=== PATIENT | male | born 1960 | race Caucasian/White ===

== ENCOUNTER → 2020-04-21 12:48 | Outpatient (BNVA) | payer OTHER, SELFPAY | PROVIDERS: Visit Provider Internal Medicine Cardiovascular Disease | DX: I48.0 Paroxysmal atrial fibrillation (principal); I71.2 Thoracic aortic aneurysm, without rupture; I10 Essential (primary) hypertension | CPT/HCPCS: 93005 ==

== ENCOUNTER 2020-05-05 13:11 | Outpatient (REF) | payer OTHER, SELFPAY ==
[2020-05-05 14:53] LABS: MANUAL DIFF FLAG NO
[2020-05-05 14:56] LABS: Basophils Percent Auto 0.2 % (0-2); Eosinophils Absolute Auto 0.2 X10*3/uL (0.0-0.4); Eosinophils Percent Auto 2.3 % (0-4); Hematocrit 35.9 % (42-52); Imm Gran Abs Auto 0.02 X10*3/uL (0.00-0.03); Imm Gran Pct Auto 0.3 % (0.0-0.4); Lymphocytes Absolute Auto 1.4 X10*3/uL (1.2-4.9); Lymphocytes Percent Auto 21.3 % (20-40); Mean Corpuscular HGB Conc 33.4 g/dl (31.0-36.0); Mean Corpuscular Hemoglobin 29.8 pg (27.0-33.0); Mean Corpuscular Volume 89.1 fL (80-98); Mean Platelet Volume 8.6 fL (9.4-12.4); Monocytes Percent Auto 14.4 % (2-11); Neutrophils Absolute Auto 4.1 X10*3/uL (2.0-8.3); Neutrophils Percent Auto 61.5 % (45-73); Platelet Count 239 X10*3/uL (160-400); Red Blood Count 4.03 X10*6/uL (4.60-5.80); Red Cell Distribution Width 13.3 % (11.0-16.0); White Blood Count 6.6 X10*3/uL (4.8-10.8)
[2020-05-05 15:19] LABS: Gamma Glutamyl Transpeptidase 12 U/L (11-51)
[2020-05-05 15:28] LABS: Alanine Aminotransferase 11 U/L (0-40); Albumin Level 2.6 g/dL (3.5-5.0); Alkaline Phosphatase 105 U/L (39-117); Anion Gap 11 (12-20); Aspartate Amino Transferase 16 U/L (5-37); Bilirubin Total 0.2 mg/dL (0.0-1.0); Blood Urea Nitrogen 13 mg/dL (9-16); Calcium 7.6 mg/dL (8.4-10.2); Carbon Dioxide 25 mmol/L (22-29); Chloride 104 mmol/L (96-108); Estimated Glomerular Filt Rate > 60; Glucose Fasting 92 mg/dL (60-99); Iron 32 mcg/dL (45-160); Percent Iron Saturation 13 % (15-50); Potassium 3.8 mmol/l (3.3-5.1); Sodium 136 mmol/L (135-145); Total Iron Binding Capacity 254 mcg/dL (228-428); Total Protein 5.3 g/dL (6.5-8.0); Unsaturated Iron Binding 222 ug/dL
[2020-05-05 15:40] LABS: Ferritin 20 ng/mL (20-250)
[2020-05-05 15:47] LABS: TSH reflex Free T4 2.28 mIU/mL (0.32-4.0)
[2020-05-05 15:50] LABS: Erythrocyte Sedimentation Rate 38 MM/HR (0-15)
[2020-05-05 16:20] LABS: Prostate Specific Antigen 19.32 ng/mL (<0.05-4.0)
[2020-05-06 10:04] LABS: CDIFF Ag Negative (Negative); CDIFF Internal ctrl Dots and bkg OK (V); CDiff Toxin Negative (Negative)
[2020-05-06 13:06] LABS: Transglutaminase IgA 1 U/mL
[2020-05-06 14:43] LABS: CRP High Sensitivity >10.0 mg/L
[2020-05-13 20:37] LABS: Calprotectin, Fecal 6470 mcg/g
== END 2020-05-05 13:12 | disposition home or self-care (01) ==
LOC: HO.LAB 13:11
PROVIDERS: PCP Internal Medicine; Visit Provider Physician Assistant
DX: K52.9 Noninfective gastroenteritis and colitis, unspecified (principal)
CPT/HCPCS: 36415; 80053; 82728; 82977; 83516; 83540; 83993; 84153; 84443; 85025; 85652; 86141; 87045; 87046; 87324; 87449

== ENCOUNTER → 2020-07-20 09:33 | Outpatient (BNVA) | payer OTHER, SELFPAY | PROVIDERS: PCP Internal Medicine; Visit Provider Physician Assistant ==

== ENCOUNTER → 2020-07-21 09:57 | Outpatient (BNVA) | payer OTHER, SELFPAY | PROVIDERS: PCP Internal Medicine; Visit Provider Internal Medicine Cardiovascular Disease | DX: R94.31 Abnormal electrocardiogram [ECG] [EKG] (principal) | CPT/HCPCS: 93005 ==

== ENCOUNTER → 2020-07-28 08:47 | Outpatient (BNVA) | payer OTHER, SELFPAY | PROVIDERS: PCP Internal Medicine; Visit Provider Nurse Practitioner Family ==

== ENCOUNTER 2020-07-30 11:02 | Day surgery (SDC) | payer OTHER, SELFPAY ==
[2020-07-30 11:16] VITALS: BMI 32.7
[2020-07-30 11:18] VITALS: BP 128/77; PULSE 72; RESP 18; TEMP 36.4; O2SAT 96
--- NOTE | 2020-07-30 11:33 | P.CONAN_ITS ---
[facility] Active Problems Active Problems: All Active Problems (Updated 07/28/20 @ 18:07 by Ally rice, BI DEVELOPER-C) Preop cardiovascular exam (Acute) Prostate cancer (Acute) Thoracic aortic aneurysm (Acute) Paroxysmal atrial fibrillation (Acute) Benign essential hypertension (Acute) Chronic diarrhea (Acute) Colon cancer screening (Acute) Obesity (BMI 30-39.9) (Acute) Bladder outlet obstruction (Acute) Iron deficiency anemia (Acute) Paroxysmal atrial fibrillation (Acute) Pure hypercholesterolemia (Acute) Annual physical exam (Acute) Past Medical History Medical History Benign essential hypertension Bladder outlet obstruction Chronic diarrhea Iron deficiency anemia Obesity (BMI 30-39.9) Paroxysmal atrial fibrillation Paroxysmal atrial fibrillation Preop cardiovascular exam Pure hypercholesterolemia Thoracic aortic aneurysm Family History Family History Father Diabetes Kidney failure, acute Mother Diabetes Sister In good health Surgical History Surgical History History of cystoscopy History of hernia repair Social History Social History Household Members: None Alcohol intake: never Smoking Status: Never smoker Use of substances other than those prescribed or required for medical reasons: No Advance Directives: No Advance Directives Information Provided: Yes Current occupational status: employed Current occupation: [employer] Allergies Allergy/AdvReac Type Severity Reaction Status Date / Time No Known Allergies Allergy Verified 07/20/20 09:34 [No Known Allergies*] Active Medications: Current Medications Generic Name Dose Route Start Last Admin Trade Name Andrews PRN Reason Stop Dose Admin Lactated Ringer's 1,000 mls @ 20 mls/hr 07/29/20 14:15 Lr IVCONT .Q24H CARRIE Home Medications Medication Instructions Recorded Confirmed Last Taken Type dronedarone 400 mg tablet 400 mg PO BID 04/16/20 07/28/20 Unknown History tamsulosin 0.4 mg capsule 0.4 mg PO BEDTIME cap 04/16/20 07/28/20 Unknown History Exam Exam Date and Time: July 30, 2020 1133 Height,Weight and Vital Signs: Height 5 ft 7 in Weight 13.154 kg Last Vital Signs Temp 97.6 F 07/30/20 11:18 Pulse 72 07/30/20 11:18 Resp 18 07/30/20 11:18 BP 128/77 07/30/20 11:18 Pulse Ox 96 07/30/20 11:18 Airway Mallampati Class: II TM Dist: >3cm Neck ROM: Full
[2020-07-30] MEDS: Lactated Ringers 1,000 ML 100 ML IVCONT (11:43)
--- NOTE | 2020-07-30 11:54 | MHC.SHP ---
Pre-Procedural Eval Section A The patient is an INPATIENT: No Changes since office visit: Yes Patient answered all questions; No Cold of Flu in the past 2 weeks, No New Medical Problems and No Changes in Medication The History & Physical has been completed within 30 days and I have reviewed it.: Yes Section B Chief Complaint: colitis Allergies: Allergies Allergy/AdvReac Type Severity Reaction Status Date / Time No Known Allergies Allergy Verified 07/20/20 09:34 [No Known Allergies*] Plan I have reviewed the history and physical and performed a pertinent physical examination on my patient. No changes have occurred unless specified.
[2020-07-30 11:57] VITALS: BMI 32.4
[2020-07-30 12:50] VITALS: BP 98/56; PULSE 68; RESP 14; TEMP 36.4; O2SAT 96
--- NOTE | 2020-07-30 12:52 | PM.OP ---
Brief Operative Note Date of Service: 07/30/20 Pre-op diagnosis: DIARRHEA, COLON CANCER SCREENING, PROSTATE CANCER. Post-op diagnosis: other (ULCERATIVE COLITIS VS. IBD,VS INFECTIOUS-COLON POLYPS.) Procedure: COLONOSCOPY WITH HSP X2, LARGER WITH HEX SNARE, SECOND WITH REG SMALL SNARE, MULTIPLE BX Implants: NONE Surgeon: Charisse Johnson MD Anesthesia: MAC (JUHI TIJERINA,[place]) Estimated blood loss (mL): 10 Pathology: other (ASPIRATE FOR C. DIF, RIGHT COLON BX, TRANS COLON POLYP, DISTAL TRANSVERSE COLON-POLYP, RANDOM LEFT COLON BX.) Condition: stable Disposition: PACU
--- NOTE | 2020-07-30 13:00 | P.BOP_ITS ---
Brief Operative Note Date of Service: 07/30/20 Pre-op diagnosis: DIARRHEA;COLON CANCER SCREENING Post-op diagnosis: other (INFLAMATORY(vs infectious) COLITIS, COLONIC POLYPS; KNOWN PROSTATE CANCER) Procedure: COLONOSCOPY BIOPSIES, HOT SNARE POLPECTOMY X2, STOOL ASPIRATE FOR C. DIF TOXIN Implants: NONE Surgeon: Charisse Johnson MD Anesthesia: MAC (Allyssa TIJERINA;SPRAY MACHINE TENDER) Estimated blood loss (mL): 10 Pathology: other (STOOL ASPIRATE, RIGHT COLON BX, TRANSVERSE COLON POLYP, DISTAL TRANSVERSE COLON POLYP, LEFT COLON BX.) Condition: stable Disposition: PACU
[2020-07-30 13:05] VITALS: BP 134/71; PULSE 62; RESP 17; TEMP 36.4; O2SAT 96
[2020-07-30 13:17] LABS: MANUAL DIFF FLAG NO
[2020-07-30 13:21] LABS: Basophils Percent Auto 0.1 % (0-2); Eosinophils Absolute Auto 0.1 X10*3/uL (0.0-0.4); Eosinophils Percent Auto 0.7 % (0-4); Hematocrit 34.4 % (42-52); Hemoglobin 11.5 g/dl (14.0-18.0); Imm Gran Abs Auto 0.02 X10*3/uL (0.00-0.03); Imm Gran Pct Auto 0.3 % (0.0-0.4); Lymphocytes Absolute Auto 0.9 X10*3/uL (1.2-4.9); Lymphocytes Percent Auto 13.4 % (20-40); Mean Corpuscular HGB Conc 33.4 g/dl (31.0-36.0); Mean Corpuscular Hemoglobin 29.6 pg (27.0-33.0); Mean Corpuscular Volume 88.4 fL (80-98); Monocytes Absolute Auto 0.9 X10*3/uL (0.1-1.2); Monocytes Percent Auto 12.7 % (2-11); Neutrophils Percent Auto 72.8 % (45-73); Platelet Count 185 X10*3/uL (160-400); Red Blood Count 3.89 X10*6/uL (4.60-5.80); Red Cell Distribution Width 14.2 % (11.0-16.0); White Blood Count 6.9 X10*3/uL (4.8-10.8)
--- NOTE | 2020-07-30 13:33 | P.OP_ITS ---
Operative Note Operative Note Date of Service: 07/30/20 Narrative: Pre-op diagnosis: DIARRHEA, COLON CANCER SCREENING, PROSTATE CANCER. Post-op diagnosis: other (ULCERATIVE COLITIS VS. IBD,VS INFECTIOUS-COLON POLYPS.) Procedure: COLONOSCOPY WITH HSP X2, LARGER WITH HEX SNARE, SECOND WITH REG SMALL SNARE, MULTIPLE BX Implants: NONE Surgeon: Charisse Johnson MD Anesthesia: MAC: JUHI TIJERINA CRNA FINDINGS: FELIZ-FIRM NODULE ON PROSTATE (known prostate cancer.) Adult slim colonoscope introduced with out difficult. Immediately, noted was edematous, exudative ulcerative changes from rectum to the cecum. Stool aspirate was taken in the descending colon(Sent for C. Diff studies.) Usual landmarks difficult to see due to the extent of the inflamation. All areas were very friable. I was unable to intubate the terminal ileum due to spasm present when I was in the right colon. Specimens taken as outlined below. The larger polyp was viewed with NBI. It appeared to have some adenomatous texturing. Second polyp was firmer and smaller--both in setting of surrounding inflamation. Left colon bx were obtained. There seemed to be slightly less inflamation in the distal rectum/ Estimated blood loss (mL): 10 Pathology: other (ASPIRATE FOR C. DIF, RIGHT COLON BX, TRANS COLON POLYP, DISTAL TRANSVERSE COLON-POLYP, RANDOM LEFT COLON BX.) Condition: stable Disposition: PACU SUMMARY AND PLAN: LABS FROM 05/05/20: HGB: 12.0--2019 13.4; ALBUMIN: 2.6COMPARED TO 02/08/19- 3.5; CRP>10;FERRITIN-20;C&S DONE @THAT TIME WAS NEG FOR ENTERIC PATHOGENS. STOOL C. DIF WAS ALSO NEG. STOOL CALPROTECTIN 6470 I REVIEWED WITH PATIENT HIS HX OF DIARRHEA. I WAS ABLE TO FIND THE ABOVE RESULTS. I am unclear about any interventions reviewing the [facility] records. I did tell patient of my findings. REPEAT LABS WERE ORDERED TODAY HE WILL NEED FOLLOWUP IN OUR OFFICE. 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
[2020-07-30 13:49] LABS: Alanine Aminotransferase 11 U/L (0-40); Albumin Level 2.4 g/dL (3.5-5.0); Alkaline Phosphatase 114 U/L (39-117); Anion Gap 12 (12-20); Aspartate Amino Transferase 19 U/L (5-37); Bilirubin Total 0.4 mg/dL (0.0-1.0); Blood Urea Nitrogen 8 mg/dL (9-16); C Reactive Protein 0.47 mg/dL (< or = 0.50); Calcium 7.8 mg/dL (8.4-10.2); Carbon Dioxide 22 mmol/L (22-29); Chloride 107 mmol/L (96-108); Creatinine Clr Calc Pharmacy 78.4; Estimated Glomerular Filt Rate > 60; Glucose Random 78 mg/dL (60-115); Magnesium 1.6 mg/dL (1.6-2.6); Potassium 4.3 mmol/L (3.3-5.1); Sodium 137 mmol/L (135-145); Total Protein 4.8 g/dL (6.5-8.0)
[2020-07-30 14:07] LABS: Ferritin 38 ng/mL (20-250); Vitamin D 25-OH Total 5.4 ng/mL (>30)
[2020-07-30 14:57] LABS: CDIFF Ag Negative (Negative); CDIFF Internal ctrl Dots and bkg OK (V); CDiff Toxin Negative (Negative)
== END 2020-07-30 14:05 | disposition home or self-care (01) ==
PROVIDERS: PCP Internal Medicine; Visit Provider Internal Medicine Gastroenterology
PROC: 0DJD8ZZ Inspection of Lower Intestinal Tract, Via Natural or Artificial Opening Endoscopic (ICD-10-PCS; CPT 45378; principal; 2020-07-30 11:30)
DX: Z12.11 Encounter for screening for malignant neoplasm of colon (principal); K51.40 Inflammatory polyps of colon without complications; K52.9 Noninfective gastroenteritis and colitis, unspecified; I10 Essential (primary) hypertension; C61 Malignant neoplasm of prostate; D50.9 Iron deficiency anemia, unspecified; I71.2 Thoracic aortic aneurysm, without rupture; I48.0 Paroxysmal atrial fibrillation; Z79.01 Long term (current) use of anticoagulants; Z79.899 Other long term (current) drug therapy
CPT/HCPCS: 45385; 45380; 36415; 80053; 82306; 82728; 83735; 85025; 86140; 87324; 87449; 88305

== ENCOUNTER 2020-08-26 09:10 | Outpatient (REF) | payer OTHER, SELFPAY ==
[2020-08-27 04:31] LABS: HBS Num1 > 1000.00 mIU/mL (0-7.99); HBc Num1 0.07 S/CO (0.00-0.79); HBsAGNum1 0.14 S/CO (0.00-0.99); Hepatitis B Core Antibody Nonreactive (Nonreactive); Hepatitis B Surface Antigen Negative (Negative); ~Hepatitis B Surface Antibody REACTIVE (Nonreactive)
[2020-08-29 22:46] LABS: TS Negative Control Passed; TS Panel A 0; TS Panel B 0; TS Positive Control Passed; TSpotTB Negative (SeeBelow)
== END 2020-08-26 09:11 | disposition home or self-care (01) ==
LOC: HO.LAB 09:10
PROVIDERS: PCP Internal Medicine; Referring Provider Internal Medicine; Visit Provider Physician Assistant
DX: R74.01 Elevation of levels of liver transaminase levels (principal); K51.90 Ulcerative colitis, unspecified, without complications; Z79.899 Other long term (current) drug therapy; C61 Malignant neoplasm of prostate
CPT/HCPCS: 36415; 86481; 86704; 86706; 87340

== ENCOUNTER → 2020-09-17 08:33 | Outpatient (REF) | payer OTHER, SELFPAY ==
--- NOTE | 2020-09-17 08:37 | CA_ITS ---
Transthoracic Echocardiogram Patient (Last, First, Middle): Francisco J Carrington, Gender: Male Date of : 1960 Age: 60 Procedure Date: 09/17/2020 Procedure Type: Transthoracic Echocardiogram Location: OP Height: 172.72 cm Weight: 89.36 kg BSA: 2.03 m2 Heart Rate: bpm BP: 110 / 53 mmHg Grounds Maintenance Supervisor: JORGE Referring MD: Bam Muller MD Mercerizing Range Controller: Bam Muller MD Symptoms: I48.0 - Paroxysmal atrial fibrillation Study Quality: Fair ECG Rhythm: Sinus Conclusions: - 1. Normal LV systolic and diastolic function 2. Mild to moderate aortic regurgitation 3. Mildly dilated ascending aorta at 4.1 cm 4. Normal RV systolic pressure 5. No pericardial effusion Findings Left Ventricle Normal left ventricular size, thickness, and systolic function. The visually estimated ejection fraction is between 60-65%. Spectral Doppler is indicative of a normal filling pattern. Right Ventricle Normal right ventricular cavity size and systolic function. Atria The left atrium is normal in size. There is a mobile atrial septum noted. Interatrial shunt cannot be excluded. The right atrium was not well visualized. Aortic Valve The aortic valve structure and function is likely normal. There is no aortic valve stenosis. There is mild to moderate aortic valve regurgitation. Mitral Valve Normal mitral valve structure and function. There is trace mitral valve regurgitation. There is no mitral valve stenosis. Pulmonic Valve The pulmonic valve is likely normal. Tricuspid Valve Normal tricuspid valve structure. There is trace tricuspid valve regurgitation. The right ventricular systolic pressure is normal. The right ventricular systolic pressure is 29 mmHg. Normal right atrial pressure. There is no evidence of pulmonary hypertension. Great Vessels The pulmonary artery was not well visualized. There is mild dilatation of the ascending aorta measuring 4.10 cm. Venous The inferior vena cava is normal in size and collapses greater than 50% with inspiration. Pericardium/Pleural There is no evidence of pericardial effusion. Prior Study Comparison No significant change compared to prior study dated: 05/08/2019. Measurements 2D Linear Measurements IVSd: 0.85 0.6-0.9/0.6-1.0 cm LVIDd: 4.84 3.9-5.3/4.2-5.9 cm LVIDs: 3.33 2.0-3.6 cm LVPWd: 0.98 0.7-1.1 cm Ao Root: 3.34 2.1-3.5 cm LV Mass: 189.76 67-162/88-224 g LVOT Diam: 2.40 3.0+(-)1.3 cm Mitral Valve MV Pk E: 0.71 MV PK A: 0.59 MV Decel Time: 103.97 E/A: 1.19 Decel Jackson: 6.79 Aortic Valve AoV Pk Codey: 1.65 AoV Pk Grad: 10.98 AI Pk Codey: 4.23 AI Jackson: 1.29 LVOT LVOT Pk Codey: 1.42 LVOT Mn Codey: 0.91 LVOT VTI: 0.33 LVOT Pk Grad: 8.08 LVOT Mn Grad: 3.93 LVOT Diam: 2.40 LVOT Area: 4.54 Diastolic Function MV Pk E: 0.71 MV Pk A: 0.59 E/A: 1.19 Tricuspid Valve TR Pk Codey: 2.58 TR Pk Grad: 26.68 RA Press: 3.00 RVSP: 29.00 Great Vessels Aorta Ao Root-2D: 3.34 2.0-3.7 cm Ao Asc: 4.10 2.1-3.4 cm Ao Arch: 3.09 Ao Desc: 2.24 Updated in Other Vendor System with Status of Final Bam Muller MD electronically signed on 09/18/2020 5:40:13 PM with status of Final
== END ==
LOC: HO.CARD 08:33
PROVIDERS: Visit Provider Internal Medicine Cardiovascular Disease
DX: I10 Essential (primary) hypertension (principal); I48.0 Paroxysmal atrial fibrillation; I71.2 Thoracic aortic aneurysm, without rupture
CPT/HCPCS: 93306

== ENCOUNTER → 2020-10-20 09:50 | Outpatient (BNVA) | payer OTHER, SELFPAY | PROVIDERS: PCP Internal Medicine; Referring Provider Internal Medicine; Visit Provider Internal Medicine Cardiovascular Disease ==

== ENCOUNTER 2020-12-29 12:27 | Outpatient (REF) | payer OTHER, SELFPAY ==
[2020-12-29 12:52] LABS: MANUAL DIFF FLAG NO
[2020-12-29 12:57] LABS: Basophils Percent Auto 0.2 % (0-2); Eosinophils Absolute Auto 0.1 X10*3/uL (0.0-0.4); Eosinophils Percent Auto 1.7 % (0-4); Hemoglobin 11.8 g/dl (14.0-18.0); Imm Gran Abs Auto 0.02 X10*3/uL (0.00-0.03); Imm Gran Pct Auto 0.3 % (0.0-0.4); Lymphocytes Absolute Auto 1.1 X10*3/uL (1.2-4.9); Lymphocytes Percent Auto 19.1 % (20-40); Mean Corpuscular HGB Conc 34.7 g/dl (31.0-36.0); Mean Corpuscular Hemoglobin 31.9 pg (27.0-33.0); Mean Corpuscular Volume 91.9 fL (80-98); Mean Platelet Volume 8.4 fL (9.4-12.4); Monocytes Absolute Auto 0.6 X10*3/uL (0.1-1.2); Monocytes Percent Auto 10.7 % (2-11); Neutrophils Absolute Auto 3.9 X10*3/uL (2.0-8.3); Platelet Count 208 X10*3/uL (160-400); Red Cell Distribution Width 13.5 % (11.0-16.0); White Blood Count 5.8 X10*3/uL (4.8-10.8)
[2020-12-29 13:29] LABS: Alanine Aminotransferase 23 U/L (0-40); Albumin Level 2.4 g/dL (3.5-5.0); Alkaline Phosphatase 97 U/L (39-117); Anion Gap 10 (12-20); Aspartate Amino Transferase 23 U/L (5-37); Bilirubin Total 0.7 mg/dL (0.0-1.0); Blood Urea Nitrogen 10 mg/dL (9-16); Carbon Dioxide 26 mmol/L (22-29); Chloride 106 mmol/L (96-108); Cholesterol 192 mg/dL; Estimated Glomerular Filt Rate > 60; Glucose Fasting 101 mg/dL (60-99); HDL Cholesterol 46 mg/dL; LDL Cholesterol Calculated 117 mg/dl; Potassium 3.5 mmol/L (3.3-5.1); Sodium 138 mmol/L (135-145); Total Protein 4.8 g/dL (6.5-8.0); Triglycerides 148 mg/dL
[2020-12-29 13:50] LABS: TSH reflex Free T4 1.89 uIU/mL (0.32-4.0)
[2020-12-29 14:18] LABS: Appearance Urine CLEAR; Color Urine YELLOW; Glucose Urine UA NEG (NEG); Leukocyte Esterase Urine NEG (NEG); Nitrite Urine NEG (NEG); Specific Gravity - Urine 1.025 (1.005-1.025); UACC Culture Trigger NO; Urine Blood 2+ (NEG); Urine Ketones NEG (NEG); Urine Protein 2+ MG/DL (NEG-TRACE)
[2020-12-29 14:45] LABS: Mucus Urine 2+ /LPF; Squamous Epithelial Cell Urine TRACE /LPF; WBC Urine 0 /HPF (0-4)
== END 2020-12-29 12:28 | disposition home or self-care (01) ==
LOC: HO.LAB 12:27
PROVIDERS: PCP Internal Medicine; Visit Provider Internal Medicine
DX: D50.9 Iron deficiency anemia, unspecified (principal); I10 Essential (primary) hypertension; E78.00 Pure hypercholesterolemia, unspecified; I48.0 Paroxysmal atrial fibrillation; E66.9 Obesity, unspecified
CPT/HCPCS: 36415; 80053; 80061; 81001; 84443; 85025

== ENCOUNTER → 2020-12-30 14:50 | Outpatient (BNVA) | payer OTHER, SELFPAY | PROVIDERS: PCP Internal Medicine; Visit Provider Internal Medicine Cardiovascular Disease | DX: I10 Essential (primary) hypertension (principal); E78.00 Pure hypercholesterolemia, unspecified | CPT/HCPCS: 93005 ==

== ENCOUNTER → 2021-04-22 10:55 | Outpatient (BNVA) | payer OTHER, SELFPAY | PROVIDERS: PCP Internal Medicine; Referring Provider Internal Medicine; Visit Provider Internal Medicine Cardiovascular Disease | DX: I48.0 Paroxysmal atrial fibrillation (principal); I71.2 Thoracic aortic aneurysm, without rupture | CPT/HCPCS: 93005 ==

== ENCOUNTER → 2021-07-21 14:59 | Outpatient (BNVA) | payer OTHER, SELFPAY | PROVIDERS: PCP Internal Medicine; Referring Provider Internal Medicine; Visit Provider Internal Medicine Cardiovascular Disease | DX: R00.1 Bradycardia, unspecified (principal); R94.31 Abnormal electrocardiogram [ECG] [EKG] | CPT/HCPCS: 93005 ==

== ENCOUNTER → 2021-10-21 09:52 | Outpatient (BNVA) | payer OTHER, SELFPAY | PROVIDERS: PCP Internal Medicine; Referring Provider Internal Medicine; Visit Provider Internal Medicine Cardiovascular Disease | DX: I48.0 Paroxysmal atrial fibrillation (principal) | CPT/HCPCS: 93005 ==

== ENCOUNTER → 2022-04-12 08:59 | Outpatient (REF) | payer OTHER, SELFPAY ==
--- NOTE | 2022-04-12 09:02 | CA_ITS ---
Transthoracic Echocardiogram Patient (Last, First, Middle): Francisco J Carrington, Gender: Male Date of : 1960 Age: 61 Procedure Date: 04/12/2022 Procedure Type: Transthoracic Echocardiogram Location: OP Height: 175.26 cm Weight: 90.72 kg BSA: 2.07 m2 Heart Rate: 67 bpm BP: 130 / 80 mmHg Consulting Actuary: SB Referring MD: Bam Muller MD Symptoms: I71.2 - Thoracic aortic aneurysm, without rupture Study Quality: Adequate ECG Rhythm: Sinus Conclusions: - LV appears dilated (LVEDD 6.6cm); previously normal size. - The left ventricular systolic function is normal. The calculated ejection fraction is 64% by biplane method. - There is mild aortic valve regurgitation. - There is mild mitral annular calcification. - There is mild dilatation of the ascending aorta measuring 4.10 cm. Findings Left Ventricle Moderately increased left ventricular cavity size. The left ventricular systolic function is normal. The calculated ejection fraction is 64% by biplane method. There is no evidence of regional wall motion abnormalities. Diastolic function is normal for age. There is mild septal asymmetric hypertrophy. LV peak GLS -19.5%. Right Ventricle Normal right ventricular cavity size and systolic function. Atria Both atria are normal in size. Aortic Valve There is mild calcification of the aortic valve. There is no aortic valve stenosis. There is mild aortic valve regurgitation. Mitral Valve The mitral valve appears normal. There is mild mitral annular calcification. There is trace mitral valve regurgitation. There is no mitral valve stenosis. Pulmonic Valve The pulmonic valve is likely normal. Tricuspid Valve Normal tricuspid valve structure. There is mild tricuspid valve regurgitation. There is no evidence of pulmonary hypertension. Great Vessels There is mild dilatation of the ascending aorta measuring 4.10 cm. Venous The inferior vena cava is normal in size and collapses greater than 50% with inspiration. Pericardium/Pleural There is no evidence of pericardial effusion. Prior Study Comparison Changes noted compared to prior study dated: 09/17/2020. See comments on LV size. Measurements 2D Linear Measurements IVSd: 1.15 0.6-0.9/0.6-1.0 cm LVIDd: 6.63 3.9-5.3/4.2-5.9 cm LVIDd Index: 3.20 2.4-3.2/2.2-3.1 cm/m2 LVIDs: 4.43 2.0-3.6 cm LVPWd: 0.68 0.7-1.1 cm LA Diam: 3.60 2.7-3.8/3.0-4.0 cm LAIDs Index: 1.74 1.5-2.3 cm/m2 LV Mass: 326.18 67-162/88-224 g LV Mass Index: 157.57 43-95/49-115 g/m2 LVOT Diam: 2.40 3.0+(-)1.3 cm 2D Systolic Function EF 4C: 66.60 >55% EF 2C: 64.50 >55% EF BiP: 63.50 >55% Mitral Valve MV Pk E: 0.68 MV PK A: 0.89 MV Decel Time: 175.00 E/A: 0.80 E'Lateral: 8.92 E'Medial: 5.77 E/E' Med: 11.80 E/E' Lat: 7.60 PHT: 51.00 MVA PHT: 4.31 Decel [place]: 3.88 Aortic Valve AoV Pk Codey: 2.30 AoV Mn Codey: 1.57 AoV VTI: 0.49 AoV Pk Grad: 21.00 Aov Mn Grad: 12.00 CHI Cont.VTI: 2.74 AI Pk Codey: 4.32 AI [place]: 2.19 LVOT LVOT Pk Codey: 1.41 LVOT Mn Codey: 0.90 LVOT VTI: 0.30 LVOT Pk Grad: 8.00 LVOT Mn Grad: 4.00 LVOT Diam: 2.40 LVOT Area: 4.52 Diastolic Function MV Pk E: 0.68 MV Pk A: 0.89 E/A: 0.80 E'Medial: 5.77 E/E' Med: 11.80 E' Laterial: 8.92 E/E' Lat: 7.60 Right Ventricle TAPSE (mm): 28.70 TVS' Codey: 14.60 Tricuspid Valve TR Pk Codey: 2.51 TR Pk Grad: 25.00 RA Press: 3.00 RVSP: 28.00 Great Vessels Aorta Sinus of Valsalva: 3.60 2.0-3.5 cm Ao Asc: 4.10 2.1-3.4 cm Ao Arch: 3.50 Ao Desc: 1.80 Pulmonary Veins Pulm Vein S/D 1.80 Pulmonary Valve PV Pk Codey: 1.23 Peak PV Grad: 6.00 Updated in Other Vendor System with Status of Final Michelet Chen MD electronically signed on 04/12/2022 4:11:52 PM with status of Final
== END ==
LOC: HO.CARD 08:59
PROVIDERS: Visit Provider Internal Medicine Cardiovascular Disease
DX: I71.20 Thoracic aortic aneurysm, without rupture, unspecified (principal)
CPT/HCPCS: 93306; 93356

== ENCOUNTER → 2022-04-21 10:38 | Outpatient (BNVA) | payer OTHER, SELFPAY | PROVIDERS: PCP Internal Medicine; Referring Provider Internal Medicine; Visit Provider Internal Medicine Cardiovascular Disease | DX: I48.0 Paroxysmal atrial fibrillation (principal); I71.20 Thoracic aortic aneurysm, without rupture, unspecified | CPT/HCPCS: 93005 ==

== ENCOUNTER 2022-07-12 11:50 | Outpatient (REF) | payer OTHER, SELFPAY ==
[2022-07-12 12:02] LABS: MANUAL DIFF FLAG NO
[2022-07-12 13:15] LABS: Basophils Percent Auto 0.3 % (0-2); Eosinophils Absolute Auto 0.1 X10*3/uL (0.0-0.4); Eosinophils Percent Auto 1.1 % (0-4); Hematocrit 33.6 % (42.0-52.0); Hemoglobin 11.5 g/dl (14.0-18.0); Imm Gran Abs Auto 0.03 X10*3/uL (0.00-0.03); Imm Gran Pct Auto 0.5 % (0.0-0.4); Lymphocytes Absolute Auto 0.8 X10*3/uL (1.2-4.9); Lymphocytes Percent Auto 12.3 % (20-40); Mean Corpuscular HGB Conc 34.2 g/dl (31.0-36.0); Mean Corpuscular Hemoglobin 30.9 pg (27.0-33.0); Mean Corpuscular Volume 90.3 fL (80.0-98.0); Mean Platelet Volume 8.7 fL (9.4-12.4); Monocytes Absolute Auto 0.4 X10*3/uL (0.1-1.2); Monocytes Percent Auto 6.1 % (2-11); Neutrophils Absolute Auto 5.3 x10*3/uL (2.0-8.3); Neutrophils Percent Auto 79.7 % (45-73); Platelet Count 208 X10*3/uL (160-400); Red Blood Count 3.72 X10*6/uL (4.60-5.80); Red Cell Distribution Width 14.5 % (11.0-16.0); White Blood Count 6.6 X10*3/uL (4.8-10.8)
[2022-07-12 13:48] LABS: Alanine Aminotransferase 10 U/L (0-40); Albumin Level 2.6 g/dL (3.5-5.0); Alkaline Phosphatase 97 U/L (39-117); Anion Gap 10 (12-20); Aspartate Amino Transferase 16 U/L (5-37); Bilirubin Total 0.8 mg/dL (0.0-1.0); Blood Urea Nitrogen 14 mg/dL (9-16); Calcium 8.3 mg/dL (8.4-10.2); Carbon Dioxide 28 mmol/L (22-29); Chloride 102 mmol/L (96-108); Cholesterol 207 mg/dL; Estimated Glomerular Filt Rate 57; Glucose Fasting 92 mg/dL (60-99); HDL Cholesterol 45 mg/dL; LDL Cholesterol Calculated 134 mg/dl; Potassium 4.1 mmol/L (3.3-5.1); Sodium 136 mmol/L (135-145); Total Protein 5.2 g/dL (6.5-8.0); Triglycerides 140 mg/dL
[2022-07-12 13:55] LABS: Appearance Urine Clear; Color Urine Yellow; Glucose Urine UA Negative (Negative); Leukocyte Esterase Urine Negative (Negative); Nitrite Urine Negative (Negative); PH 6.5 (5.0-9.0); UMIC TRIGGER UACC YES; Urine Blood Small (1+) (Negative); Urine Ketones Negative (Negative); Urine Protein 300 (3+) mg/dL (Neg-Trace)
[2022-07-12 14:05] LABS: TSH reflex Free T4 1.94 uIU/mL (0.32-4.0); Vitamin D 25-OH Total 19.5 ng/mL (>30)
[2022-07-12 14:35] LABS: Bacteria Urine None Seen (None Seen); RBC Urine 0-2 /HPF (0-2); Squamous Epithelial Cell Urine 0-2 /HPF (0-2); WBC Urine 0-5 /HPF (0-5)
== END 2022-07-12 11:51 | disposition home or self-care (01) ==
LOC: HO.LAB 11:50
PROVIDERS: PCP Internal Medicine; Visit Provider Internal Medicine
DX: E78.00 Pure hypercholesterolemia, unspecified (principal); E55.9 Vitamin D deficiency, unspecified; I10 Essential (primary) hypertension
CPT/HCPCS: 36415; 80053; 80061; 81001; 82306; 84443; 85025

== ENCOUNTER → 2022-07-21 10:00 | Outpatient (BNVA) | payer OTHER, SELFPAY | PROVIDERS: PCP Internal Medicine; Referring Provider Internal Medicine; Visit Provider Internal Medicine Cardiovascular Disease | DX: Z79.899 Other long term (current) drug therapy (principal) | CPT/HCPCS: 93005 ==

== ENCOUNTER → 2022-10-20 09:49 | Outpatient (BNVA) | payer OTHER, SELFPAY | PROVIDERS: Visit Provider Internal Medicine Cardiovascular Disease ==

== ENCOUNTER 2022-11-15 14:17 | Outpatient (AMB) | payer OTHER, SELFPAY ==
--- NOTE | 2022-11-15 14:28 | A.OFFPC_ITS ---
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 Accompanied by: Self / Same As Patient Allergies No Known Allergies [No Known Allergies*] Allergy (Verified 11/15/22 15:12) Medication List - Last Reconciled 11/15/22 by Edis Nath MD abiraterone 1,000 mg PO DAILY dronedarone (Multaq) 400 mg PO BID 90 days metoprolol succinate ER 50 mg PO DAILY 90 days prednisone 5 mg PO DAILY tamsulosin 0.8 mg (2 x 0.4 mg) PO BEDTIME 90 days Tobacco use date assessed: 11/15/22 Fall risk assessment: 2 + Falls in past year Last assessed Fall Risk: 11/15/22 Dental Screening Dental Screen Date: 11/15/22 Did you have a dental visit in the last 12 months?: Yes Did you have a dental problem in the last 6 months where you did not have access to dental care?: No Was dental information given to patient?: Patient has dentist HPI HTN, PAF, Hyperlipemia, Prostate Cancer HPI Details Patient comes in today for his follow up visit States that he feels okay Denies any headaches or dizziness Denies any chest pains, no shortness of breath No nausea/vomiting, no abdominal pain No change in bowel habits noted Needs a few of his Rx refilled States that he had some follow-up labs done at [facility] a couple of weeks ago - patient brought in copies of these results for our review He also had a follow-up CT of the abdomen and pelvis done at [facility] 2 weeks ago for his prostate cancer [facility] Medical History Benign essential hypertension Bladder outlet obstruction Chronic diarrhea Iron deficiency anemia Obesity (BMI 30-39.9) Paroxysmal atrial fibrillation Prostate cancer metastatic to bone Pure hypercholesterolemia Thoracic aortic aneurysm Vitamin D deficiency Surgical History History of cystoscopy History of hernia repair Hx of colonoscopy Family History Father Diabetes Kidney failure, acute Mother Diabetes Sister In good health Social History Household Members: None Housing: House Alcohol intake: never Patient Tobacco Use Status: Never used Tobacco e-Cigarette/Vaping Use: Never Used Second Hand Smoke Exposure: Yes service: No Current occupational status: employed Current occupation: [employer] Cognitive needs: No Hearing needs: Yes Vision needs: Yes Questionnaire PHQ-9 Over the last 2 weeks, how often have you been bothered by any of the following problems? 1. Little interest or pleasure in doing things: not at all 2. Feeling down, depressed, or hopeless: not at all 3. Trouble falling or staying asleep, or sleeping too much: not at all 4. Feeling tired or having little energy: not at all 5. Poor appetite or overeating: not at all 6. Feeling bad about yourself - or that you are a failure or have let yourself or your family down: not at all 7. Trouble concentrating on things, such as reading the newspaper or watching television: not at all 8. Moving or speaking so slowly that other people could have noticed. Or the opposite - being so fidgety or restless that you have been moving around a lot more than usual: not at all 9. Thoughts that you would be better off or of hurting yourself in some way: not at all Total score: 0 Depression Screening Interpretation: Negative 49520 - PHQ-9 Billing: Yes Source: Developed by Drs. Joaquín Persaud, Paulina Reis, Ferdinand Schafer and colleagues, with an educational ev from [employer]. Thrive Questionnaire Date Thrive assessed: 11/15/22 I am a: Patient What is your living situation today?: I have a steady place to live Within the past 12 months, did the food you bought not last and you didn't have the money to get more?: Never true Within the past 12 months, did you worry whether your food would run out before you got money to buy more?: Never true Do you have trouble paying for medicines?: No Do you have trouble getting transportation to medical appointments?: No Do you have trouble paying your heating and electricity bill?: No Do you have trouble taking care of your child, family member or friend?: No Do you have trouble with day-to-day activities such as bathing, preparing meals, shopping, managing finances, etc.?: No Are you currently unemployed and looking for a job?: No Are you interested in more education?: No Please select the resources that you would like help with: None Currently or been in a relationship where the following occur: no concerns reported AUDIT C Alcohol Use Questionnaire (AUDIT-C) 1. How often do you have a drink containing alcohol?: Never 3. How often do you have six or more drinks on one occasion?: Never Total Score: 0 Score Reviewed/Action Taken: Yes ARTHUR-7 AMB Questionnaire ARTHUR-7 Date ARTHUR - 7 assessed: 11/15/22 Feeling nervous, anxious, or on edge: 0 = Not at all Not being able to stop or control worryin = Not at all Worrying too much about different things: 0 = Not at all Trouble relaxin = Not at all Being so restless that it is hard to sit still: 0 = Not at all Becoming easily annoyed or irritable: 0 = Not at all Feeling afraid as if something awful might happen: 0 = Not at all Total ARTHUR-7 score (0-4 normal; 5-9 mild; 10-14 moderate; 15-21 severe): 0 Source: Developed by Drs. Joaquín Persaud, Paulina Reis, Ferdinand Schafer and colleagues, with an educational ev from [employer]. Review of Systems Const Denies chills, Denies fatigue, Denies fever(s) and Denies headache(s) ENT Denies dysphagia, Denies dizziness, Denies otalgia, Denies headache(s), Denies odynophagia and Denies sore throat Card Denies chest pain, Denies palpitations and Denies dyspnea Resp Denies cough, Denies dyspnea and Denies wheezing GI Denies abdominal pain, Denies hematochezia, Denies constipation, Denies dysphagia, Denies heartburn, Reports diarrhea (on and off), Denies nausea, Denies odynophagia and Denies vomiting Denies dysuria, Denies nocturia and Denies urinary frequency Musc Reports arthralgias (mild left hip discomfort) Neuro Denies dizziness and Denies headache(s) Endo Denies fatigue and Denies palpitations Aller/Immun Denies wheezing Physical exam (Primary Care) Vital Signs: Last Vital Signs Pulse 68 11/15/22 14:29 BP 100/80 11/15/22 14:29 Pulse Ox 96 11/15/22 14:29 Oxygen Delivery Method Room Air 11/15/22 14:29 BMI result Body Mass Index 30.7 Tobacco/Smoking Status: Tobacco use Status Tobacco use date assessed 11/15/22 11/15/22 14:30 Patient Tobacco Use Status Never used Tobacco 11/15/22 14:30 e-Cigarette/Vaping Use Never Used 11/15/22 14:30 PHQ-9: PHQ-9 Score PHQ-9: Total score 0 11/15/22 15:22 Depression Screening Interpretation: Negative Thrive Assessment: Date of Thrive Assessment Date Thrive assessed 11/15/22 11/15/22 14:30 Currently or been in a relationship where the following occur: no concerns reported Const General: no acute distress and alert HENMT Ears: TM's normal bilaterally and EAC's normal Throat: Yes posterior oropharynx normal and Yes tonsils normal (no TP congestion noted) Neck Neck: Yes no lymphadenopathy and Yes supple Resp Auscultation: clear to auscultation bilaterally, no rales and no wheezes Cardio Rate: regular rate Rhythm: regular rhythm Heart sounds: no murmurs GI Palpation (GI): Soft to palpation and nontender Auscultation: normal bowel sounds Extrem General: Yes no clubbing, cyanosis or edema Assessment and Plan Assessment & Plan (1) Pure hypercholesterolemia: Code(s): E78.00 - Pure hypercholesterolemia, unspecified Plan: Results of his labs done at [facility] a couple of weeks ago reviewed and discussed with patient but these apparently do not include a fasting lipid profile Reinforced low-cholesterol diet Will have patient recheck his labs and fasting lipids in 4 months for follow-up (2) Benign essential hypertension: Code(s): I10 - Essential (primary) hypertension Plan: Reinforced low sodium diet - goal is systolic BP of at least 120 to 130 mm or less Continue Metoprolol ER 50 mg QD (3) Paroxysmal atrial fibrillation: Comment: S/P synchronized cardioversion Code(s): I48.0 - Paroxysmal atrial fibrillation Plan: Patient currently remains in sinus rhythm Continue Multaq 400 mg BID and Metoprolol ER 50 mg QD Follow-up with cardiology as scheduled - sees cardiology now once a year (4) Thoracic aortic aneurysm: Code(s): I71.2 - Thoracic aortic aneurysm, without rupture Qualifiers: Thoracic aorta location: unspecified Presence of rupture: without rupture Qualified Code(s): I71.20 - Thoracic aortic aneurysm, without rupture, unspecified Plan: Repeat echocardiogram done on 04/12/2022 showed that his LV appears dilated (LVEDD 6.6cm) - was previously at normal size. The left ventricular systolic function is normal.? The calculated ejection fraction is 64% by biplane method. There is mild aortic valve regurgitation, mild mitral annular calcification and mild dilatation of the ascending aorta measuring 4.10 cm. Follow up with cardiology as scheduled for continuing surveillance (5) Prostate cancer metastatic to bone: Comment: staging is T1c, N0, N1B Lisette 4+4 oligometastatic prostate cancer with tumor in bilateral pubic rami and the left 7th rib Code(s): C61 - Malignant neoplasm of prostate; C79.51 - Secondary malignant neoplasm of bone Plan: Continue Zytiga 1000 mg QD, Prednisone 5 mg QD (started on 09/17/2020) and Eligard 45 mg Q 6 months Continue Tamsulosin 0.4 mg 2 tablets Q HS - Rx refilled Patient received adjuvant radiation therapy from 01/04/2021 to 04/27/2021 with SBRT to right iliac bone; completed left ilium RT on 05/17/2021 and radiation to involved left 9th rib PET scan done on 02/11/2022 reportedly came out okay Follow up with urology, oncology and radiation oncology as scheduled (6) Iron deficiency anemia: Code(s): D50.9 - Iron deficiency anemia, unspecified Qualifiers: Iron deficiency anemia type: unspecified iron deficiency Qualified Code(s): D50.9 - Iron deficiency anemia, unspecified Plan: Stable; continue Feosol 65 mg QD Will continue to monitor his CBC regularly (7) Ulcerative colitis: Comment: 59-year-old male newly diagnosis prostate cancer, after colonoscopy with pathology showing-moderately active colitis- Patient is overwhelmed, certainly understandable given his multiple new diagnoses- Consulted with Dr. David (as requested previously) to assist in beginning/managing care in this complex patient Will get T spot, hep B status, he had stool calprotectin-04/30-august repeat Code(s): K51.90 - Ulcerative colitis, unspecified, without complications Plan: Continue Mesalamine ER 1.5 gm QD and Mesalamine 4 gm Q HS Follow up with GI as scheduled (8) Vitamin D deficiency: Code(s): E55.9 - Vitamin D deficiency, unspecified Plan: Continue OTC Vitamin D3 2000 units QD Will recheck his Vitamin D level in 4 months for follow up (9) Obesity (BMI 30-39.9): Code(s): E66.9 - Obesity, unspecified Plan: Reinforced diet/exercise as tolerated/lose weight Plan Follow up in 4 months Orders: Orders Comprehensive [place]. Panel Fast 4 Months E78.00 - Pure hypercholesterolemia, unspecified Hemoglobin A1c 4 Months R73.01 - Impaired fasting glucose Lipid Panel 4 Months E78.00 - Pure hypercholesterolemia, unspecified TSH reflex Free T4 4 Months E78.00 - Pure hypercholesterolemia, unspecified Vitamin D 25-OH Total 4 Months E55.9 - Vitamin D deficiency, unspecified Complete Blood Count Auto Diff 4 Months I10 - Essential (primary) hypertension UA CC w/rflx Micro + Cult 4 Months R30.0 - Dysuria Medications: Refilled tamsulosin 0.8 mg (2 x 0.4 mg) PO BEDTIME 90 days 180 caps 3RF metoprolol succinate ER 50 mg PO DAILY 90 days 90 tabs 3RF I10 - Essential (primary) hypertension, I48.0 - Paroxysmal atrial fibrillation dronedarone (Multaq) 400 mg PO BID 90 days 180 tabs 3RF Coding Level of Care Code Est Pt Level 4 (69039) Diagnoses Pure hypercholesterolemia E78.00 Benign essential hypertension I10 Paroxysmal atrial fibrillation I48.0 Thoracic aortic aneurysm I71.20 Thoracic aorta location: unspecified Presence of rupture: without rupture Prostate cancer metastatic to bone C61; C79.51 Iron deficiency anemia D50.9 Iron deficiency anemia type: unspecified iron deficiency Ulcerative colitis K51.90 Vitamin D deficiency E55.9 Obesity (BMI 30-39.9) E66.9
[2022-11-15 14:29] VITALS: BP 100/80; PULSE 68; O2SAT 96; BMI 30.7
== END 2022-11-15 15:25 | disposition home or self-care (01) ==
PROVIDERS: PCP Internal Medicine; Visit Provider Internal Medicine
DX: I10 Essential (primary) hypertension (principal); I48.0 Paroxysmal atrial fibrillation; I71.20 Thoracic aortic aneurysm, without rupture, unspecified; C79.51 Secondary malignant neoplasm of bone; C61 Malignant neoplasm of prostate; E78.00 Pure hypercholesterolemia, unspecified; D50.9 Iron deficiency anemia, unspecified; K51.90 Ulcerative colitis, unspecified, without complications; E55.9 Vitamin D deficiency, unspecified; E66.9 Obesity, unspecified
CPT/HCPCS: 99214

== ENCOUNTER 2022-11-16 14:58 | Outpatient (REF) | payer OTHER, SELFPAY ==
[2022-11-16 17:16] LABS: Cholesterol 163 mg/dL; HDL Cholesterol 45 mg/dL; LDL Cholesterol Calculated 90 mg/dl; Triglycerides 142 mg/dL
== END 2022-11-16 14:59 | disposition home or self-care (01) ==
LOC: HO.LAB 14:58
PROVIDERS: PCP Internal Medicine; Visit Provider Internal Medicine
DX: E78.00 Pure hypercholesterolemia, unspecified (principal)
CPT/HCPCS: 36415; 80061

== ENCOUNTER → 2023-01-12 14:50 | Outpatient (BNVA) | payer OTHER, SELFPAY | PROVIDERS: PCP Internal Medicine; Visit Provider Internal Medicine Cardiovascular Disease ==

== ENCOUNTER 2023-04-24 09:38 | Outpatient (AMB) | payer OTHER, SELFPAY ==
[2023-04-24 09:41] VITALS: BP 118/68; PULSE 58; BMI 31.2
--- NOTE | 2023-04-24 09:41 | MHC.OFFVIS ---
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 He denies any new cardiac symptoms. Denies any prolonged palpitation irregular heartbeat. Blood pressure is generally well controlled. Denies any exertional chest pain or shortness of breath. He said he moves around his work a lot and denies any symptoms. No lightheadedness, syncope. Takes all his medications. [facility] Medical History Vitamin D deficiency Prostate cancer metastatic to bone Thoracic aortic aneurysm Chronic diarrhea Obesity (BMI 30-39.9) Bladder outlet obstruction Iron deficiency anemia Paroxysmal atrial fibrillation Pure hypercholesterolemia Benign essential hypertension Surgical History Hx of colonoscopy History of cystoscopy History of hernia repair Family History Father Diabetes Kidney failure, acute Mother Diabetes Sister In good health Social History Household Members: None Housing: House Alcohol intake: never Patient Tobacco Use Status: Never used Tobacco e-Cigarette/Vaping Use: Never Used Second Hand Smoke Exposure: Yes service: No Current occupational status: employed Current occupation: [employer] Cognitive needs: No Hearing needs: Yes Vision needs: Yes Review of Systems Const Denies chills, Denies fatigue, Denies fever(s), Denies frequent falls, Denies weakness, Denies weight gain and Denies weight loss ENT Denies dizziness Card Denies chest pain, Denies leg edema, Denies lightheadedness, Denies palpitations, Denies dyspnea, Denies dyspnea on exertion, Denies orthopnea and Denies other (loss of consciousness) Resp Denies cough, Denies dyspnea and Denies dyspnea on exertion GI Denies hematochezia and Denies change in stool character Musc Denies abnormal gait, Denies muscle weakness, Denies numbness, Denies radiating pain into limb and Denies tingling Neuro Denies abnormal gait, Denies dizziness, Denies frequent falls, Denies numbness, Denies tingling and Denies weakness Endo Denies fatigue and Denies palpitations Physical Exam Vital Signs: Last Vital Signs Pulse 58 04/24/23 09:41 BP 118/68 04/24/23 09:41 BMI result Body Mass Index 31.2 Const General: cooperative, comfortable, alert and awake Nutritional Appearance: obese Orientation/consciousness: patient oriented x3 Limitations: no limitations HEENT Head: Yes normocephalic and Yes atraumatic Neck Neck: Yes trachea midline and Yes no JVD Chest Chest palpation & inspection: normal inspection of the chest Resp Effort & Inspection: normal respiratory effort Auscultation: clear to auscultation bilaterally Cardio Jugular venous distension: no JVD Palpation: normal PMI Rate: regular rate Rhythm: regular rhythm Heart sounds: S1 normal heart sound present and S2 normal heart sound present GI Auscultation: normal bowel sounds Skin General skin exam: no rashes or lesions noted Neuro General: patient oriented x3 and no focal motor deficits Extrem General: Yes no clubbing, cyanosis or edema Psych Appearance: grossly normal Office Procedures EKG Details: EKG shows sinus bradycardia with nonspecific ST T wave changes with borderline QTC interval [id number], Complete Assessment & Plan Assessment & Plan (1) Paroxysmal atrial fibrillation: Comment: S/P synchronized cardioversion Code(s): I48.0 - Paroxysmal atrial fibrillation Plan: Paroxysmal atrial fibrillation doing well with rhythm control approach. Has done well with rhythm control approach and current antiarrhythmic therapy with Multaq which she is tolerated well. CHADSVASc score of 1, and patient prefers no anticoagulation at this point time. Next year when he 63 years old will readdress the issue. Continue aggressive blood pressure control. Avoidance of stimulants was discussed advised to call me with recurrent symptoms. EKGs every 3 months to be pursued. (2) Thoracic aortic aneurysm: Code(s): I71.2 - Thoracic aortic aneurysm, without rupture Qualifiers: Thoracic aorta location: unspecified Presence of rupture: without rupture Qualified Code(s): I71.20 - Thoracic aortic aneurysm, without rupture, unspecified Plan: Thoracic aortic aneurysm which is mild. Continue monitor by echocardiogram in near future. No interventions required. Continue aggressive blood pressure control. Management of thoracic aortic aneurysm was discussed. Target goal LDL less than 100 mg/dL. (3) Benign essential hypertension: Code(s): I10 - Essential (primary) hypertension Plan: Hypertension which is currently well optimized advised to monitor blood pressure at home maintain a log. Goal blood pressure less than 130/84. Continue current antihypertensive therapy. Low-salt diet was discussed. Participate in heart healthy lifestyle was discussed. Will follow up in the clinic in 1 year's time, sooner p.r.n.. Thank you for allowing me to partake in his care Orders: Orders CA echo transthoracic complete Today I71.20 - Thoracic aortic aneurysm, without rupture, unspecified Coding Level of Care Code Est Pt Level 4 (00548) Diagnoses Paroxysmal atrial fibrillation I48.0 Thoracic aortic aneurysm without rupture, unspecified part I71.20 Thoracic aorta location: unspecified Presence of rupture: without rupture Benign essential hypertension I10 CPT Codes EKG - CPT: 57032-[id number], Complete ([id number])
== END 2023-04-24 10:26 | disposition home or self-care (01) ==
PROVIDERS: PCP Internal Medicine; Visit Provider Internal Medicine Cardiovascular Disease
DX: I48.0 Paroxysmal atrial fibrillation (principal); I71.20 Thoracic aortic aneurysm, without rupture, unspecified; I10 Essential (primary) hypertension
CPT/HCPCS: 93010; 99214

== ENCOUNTER → 2023-04-24 09:38 | Outpatient (BNVA) | payer OTHER, SELFPAY | PROVIDERS: Visit Provider Internal Medicine Cardiovascular Disease | DX: I48.0 Paroxysmal atrial fibrillation (principal); I71.20 Thoracic aortic aneurysm, without rupture, unspecified; I10 Essential (primary) hypertension | CPT/HCPCS: 93005 ==

== ENCOUNTER 2023-05-08 12:24 | Outpatient (REF) | payer OTHER, SELFPAY ==
[2023-05-08 12:39] LABS: MANUAL DIFF FLAG NO
[2023-05-08 13:21] LABS: Basophils Percent Auto 0.1 % (0-2); Eosinophils Absolute Auto 0.1 X10*3/uL (0.0-0.4); Eosinophils Percent Auto 1.4 % (0-4); Hematocrit 33.6 % (42.0-52.0); Hemoglobin 11.7 g/dl (14.0-18.0); Imm Gran Abs Auto 0.02 X10*3/uL (0.00-0.03); Imm Gran Pct Auto 0.3 % (0.0-0.4); Lymphocytes Absolute Auto 0.9 X10*3/uL (1.2-4.9); Mean Corpuscular HGB Conc 34.8 g/dl (31.0-36.0); Mean Corpuscular Hemoglobin 31.5 pg (27.0-33.0); Mean Corpuscular Volume 90.3 fL (80.0-98.0); Mean Platelet Volume 9.7 fL (9.4-12.4); Monocytes Absolute Auto 0.4 X10*3/uL (0.1-1.2); Monocytes Percent Auto 6.3 % (2-11); Neutrophils Absolute Auto 5.5 x10*3/uL (2.0-8.3); Neutrophils Percent Auto 78.9 % (45-73); Platelet Count 176 X10*3/uL (160-400); Red Blood Count 3.72 X10*6/uL (4.60-5.80); Red Cell Distribution Width 13.7 % (11.0-16.0)
[2023-05-08 13:40] LABS: Estimated Average Glucose 94 mg/dL; Hemoglobin A1c % 4.9 % (<6.0)
[2023-05-08 14:08] LABS: Appearance Urine Clear; Color Urine Yellow; Glucose Urine UA Negative (Negative); Leukocyte Esterase Urine Negative (Negative); Nitrite Urine Negative (Negative); PH 5.5 (5.0-9.0); Specific Gravity - Urine 1.015 (1.005-1.025); UMIC TRIGGER UACC YES; Urine Blood Trace (Negative); Urine Ketones Negative (Negative); Urine Protein 300 (3+) mg/dL (Neg-Trace)
[2023-05-08 14:14] LABS: Alanine Aminotransferase 18 U/L (0-40); Albumin Level 3.1 g/dL (3.5-5.0); Alkaline Phosphatase 68 U/L (39-117); Anion Gap 9 (12-20); Aspartate Amino Transferase 22 U/L (5-37); Bilirubin Total 0.3 mg/dL (0.0-1.0); Blood Urea Nitrogen 20 mg/dL (9-16); Calcium 8.8 mg/dL (8.4-10.2); Carbon Dioxide 23 mmol/L (22-29); Chloride 107 mmol/L (96-108); Cholesterol 189 mg/dL (<200); Estimated Glomerular Filt Rate 52; Glucose Fasting 93 mg/dL (60-99); HDL Cholesterol 52 mg/dL (>40); LDL Cholesterol Calculated 107 mg/dL (<100); Potassium 4.4 mmol/L (3.3-5.1); Sodium 135 mmol/L (135-145); Total Protein 6.2 g/dL (6.5-8.0); Triglycerides 150 mg/dL (<150)
[2023-05-08 14:21] LABS: TSH reflex Free T4 2.28 uIU/mL (0.32-4.0); Vitamin D 25-OH Total 25.3 ng/mL (>30)
[2023-05-08 14:42] LABS: Bacteria Urine None Seen (None Seen); Hyaline Casts Urine 0-2 /LPF (0-2); RBC Urine 0-2 /HPF (0-2); Squamous Epithelial Cell Urine 0-2 /HPF (0-2); WBC Urine 0-5 /HPF (0-5)
== END 2023-05-08 12:25 | disposition home or self-care (01) ==
LOC: HO.LAB 12:24
PROVIDERS: PCP Internal Medicine; Visit Provider Internal Medicine
DX: I10 Essential (primary) hypertension (principal); E78.00 Pure hypercholesterolemia, unspecified; E55.9 Vitamin D deficiency, unspecified; R73.01 Impaired fasting glucose
CPT/HCPCS: 36415; 80053; 80061; 81001; 81003; 82306; 83036; 84443; 85025

== ENCOUNTER → 2023-05-08 12:48 | Outpatient (REF) | payer OTHER, SELFPAY ==
--- NOTE | 2023-05-08 12:52 | CA_ITS ---
Transthoracic Echocardiogram Patient (Last, First, Middle): Francisco J Carrington, Gender: Male Date of : 1960 Age: 62 Procedure Date: 05/08/2023 Procedure Type: Transthoracic Echocardiogram Location: OP Height: 170.18 cm Weight: 92.99 kg BSA: 2.04 m2 Heart Rate: 45 bpm BP: 118 / 68 mmHg Manager Hotel: TG Referring MD: Bam Muller MD Ross Lift Operator: Bam Muller MD Symptoms: I71.20 - Thoracic aortic aneurysm, without rupture, unspecified Study Quality: Adequate ECG Rhythm: Bradycardia Conclusions: - 1. Normal LV ejection fraction with LVEF of 60-65% with impaired relaxation filling pattern with mildly dilated left ventricle 2. Txql-[id number] aortic regurgitation 3. Normal RV systolic pressure 4. Mildly dilated ascending aorta at 4.1 cm 5. No pericardial effusion Findings Left Ventricle Mildly increased left ventricular cavity size. There is normal left ventricular wall thickness. The left ventricular systolic function is normal. The visually estimated ejection fraction is between 60-65%. Spectral Doppler is indicative of an impaired relaxation filling pattern. E/E prime ratio is between 8 and 15 consistent with indeterminate filling pressures. Right Ventricle Normal right ventricular cavity size and systolic function. Atria The left atrium is likely dilated. There is no evidence of interatrial shunt. The right atrium is normal in size. Aortic Valve There is mild calcification of the aortic valve. There is no aortic valve stenosis. There is mild to moderate aortic valve regurgitation. Mitral Valve There is mild anterior and posterior mitral leaflet thickening. There is mild mitral valve regurgitation. There is no mitral valve stenosis. Pulmonic Valve The pulmonic valve is likely normal. There is trace pulmonic valve regurgitation. Tricuspid Valve Normal tricuspid valve structure. There is trace tricuspid valve regurgitation. The right ventricular systolic pressure is normal. The right ventricular systolic pressure is 23 mmHg. Normal right atrial pressure. There is no evidence of pulmonary hypertension. Great Vessels The pulmonary artery was not well visualized. There is mild dilatation of the ascending aorta measuring 4.10 cm. Venous The inferior vena cava is normal in size and collapses greater than 50% with inspiration. Pericardium/Pleural There is no evidence of pericardial effusion. Prior Study Comparison Changes noted compared to prior study dated: 04/12/2022. LV size does not appear to be as dilated Aortic regurgitation is [id number]. Delay in reporting due to technical issues Measurements 2D Linear Measurements IVSd: 1.19 0.6-0.9/0.6-1.0 cm LVIDd: 5.86 3.9-5.3/4.2-5.9 cm LVIDd Index: 2.87 2.4-3.2/2.2-3.1 cm/m2 LVIDs: 3.65 2.0-3.6 cm LVPWd: 0.87 0.7-1.1 cm LA Diam: 3.70 2.7-3.8/3.0-4.0 cm LAIDs Index: 1.81 1.5-2.3 cm/m2 LV Mass: 306.99 67-162/88-224 g LV Mass Index: 150.49 43-95/49-115 g/m2 LVOT Diam: 2.30 3.0+(-)1.3 cm 2D Systolic Function EF 4C: 60.60 >55% EF 2C: 67.90 >55% EF BiP: 64.20 >55% Mitral Valve MV Pk E: 0.63 MV PK A: 0.85 MV Decel Time: 248.00 E/A: 0.70 E'Lateral: 8.27 E'Medial: 4.35 E/E' Med: 14.40 E/E' Lat: 7.60 PHT: 73.00 MVA PHT: 3.01 Decel Benson: 2.52 Aortic Valve AoV Pk Codey: 1.74 AoV Mn Codey: 1.17 AoV VTI: 0.41 AoV Pk Grad: 12.00 Aov Mn Grad: 7.00 CHI Cont.VTI: 3.38 AI Pk Codey: 4.58 AI VTI: 3.12 AI Benson: 1.71 AI Alias Codey: 0.39 AI RV - PISA: 25.00 ERO - PISA: 8.00 LVOT LVOT Pk Codey: 1.33 LVOT Mn Codey: 0.88 LVOT VTI: 0.33 LVOT Pk Grad: 7.00 LVOT Mn Grad: 4.00 LVOT Diam: 2.30 LVOT Area: 4.15 Diastolic Function MV Pk E: 0.63 MV Pk A: 0.85 E/A: 0.70 E'Medial: 4.35 E/E' Med: 14.40 E' Laterial: 8.27 E/E' Lat: 7.60 Right Ventricle TAPSE (mm): 26.50 TVS' Codey: 13.70 Tricuspid Valve TR Pk Codey: 2.21 TR Pk Grad: 20.00 RA Press: 3.00 RVSP: 23.00 Great Vessels Aorta Sinus of Valsalva: 3.70 2.0-3.5 cm Ao Asc: 4.10 2.1-3.4 cm Ao Arch: 3.20 Pulmonary Valve PV Pk Codey: 1.05 Peak PV Grad: 4.00 Updated in Other Vendor System with Status of Final Bam Muller MD electronically signed on 05/11/2023 12:45:04 PM with status of Final
== END ==
LOC: HO.CARD 12:48
PROVIDERS: PCP Internal Medicine; Visit Provider Internal Medicine Cardiovascular Disease
DX: I71.20 Thoracic aortic aneurysm, without rupture, unspecified (principal)
CPT/HCPCS: 93306

== ENCOUNTER → 2023-05-08 12:52 | Outpatient (BNV) | payer OTHER, SELFPAY | PROVIDERS: PCP Internal Medicine; Visit Provider Internal Medicine Cardiovascular Disease | DX: I35.1 Nonrheumatic aortic (valve) insufficiency (principal) | CPT/HCPCS: 93306 ==

== ENCOUNTER 2023-05-12 15:47 | Outpatient (AMB) | payer OTHER, SELFPAY ==
[2023-05-12 15:52] VITALS: BP 112/80; PULSE 57; O2SAT 98; BMI 32.0
--- NOTE | 2023-05-12 15:52 | A.OFFPC_ITS ---
Vital Signs 05/12/23 15:52 Height 5 ft 8 in Weight 210 lb 6 oz BMI 32.0 BP 112/80 Blood Pressure Location Lt brachial Position Sitting Pulse 57 Pulse Source Pulse Oximeter Pulse Oximetry (%) 98 Oxygen Delivery Method Room Air Intake Visit Reasons: follow up,hypertension, Shrub Planter Required: No Accompanied by: Self / Same As Patient Allergies No Known Allergies [No Known Allergies*] Allergy (Verified 05/12/23 16:08) Medication List - Last Reconciled 05/12/23 by Edis Nath MD abiraterone 1,000 mg PO DAILY calcium carbonate-vitamin D3 600 mg-12.5 mcg (500 unit) (Calcium 600 with Vitamin D3) caps PO dronedarone (Multaq) 400 mg PO BID 90 days leuprolide (Eligard) 7.5 mg subcut Q4W memantine 5 mg PO BID metoprolol succinate ER 50 mg PO DAILY 90 days prednisone 5 mg PO DAILY tamsulosin 0.8 mg (2 x 0.4 mg) PO BEDTIME 90 days Tobacco use date assessed: 05/12/23 Fall risk assessment: 2 + Falls in past year Last assessed Fall Risk: 05/12/23 Dental Screening Dental Screen Date: 05/12/23 Did you have a dental visit in the last 12 months?: Yes Did you have a dental problem in the last 6 months where you did not have access to dental care?: No Was dental information given to patient?: Patient has dentist HPI follow up,hypertension, HPI Details Patient comes in today for his follow up visit States that he feels okay He denies any headaches or dizziness Denies any chest pains, no shortness of breath No nausea /vomiting, no abdominal pain No change in bowel habits noted Had his follow-up labs done a few days ago - to discuss his results [facility] Medical History Vitamin D deficiency Prostate cancer metastatic to bone Thoracic aortic aneurysm Chronic diarrhea Obesity (BMI 30-39.9) Bladder outlet obstruction Iron deficiency anemia Paroxysmal atrial fibrillation Pure hypercholesterolemia Benign essential hypertension Surgical History Hx of colonoscopy History of cystoscopy History of hernia repair Family History Father Diabetes Kidney failure, acute Mother Diabetes Sister In good health Social History Household Members: None Housing: House Alcohol intake: never Patient Tobacco Use Status: Never used Tobacco e-Cigarette/Vaping Use: Never Used Second Hand Smoke Exposure: Yes service: No Current occupational status: employed Current occupation: [employer] Cognitive needs: No Hearing needs: Yes Vision needs: Yes Questionnaire PHQ-9 Over the last 2 weeks, how often have you been bothered by any of the following problems? 1. Little interest or pleasure in doing things: not at all 2. Feeling down, depressed, or hopeless: not at all 3. Trouble falling or staying asleep, or sleeping too much: not at all 4. Feeling tired or having little energy: not at all 5. Poor appetite or overeating: not at all 6. Feeling bad about yourself - or that you are a failure or have let yourself or your family down: not at all 7. Trouble concentrating on things, such as reading the newspaper or watching television: not at all 8. Moving or speaking so slowly that other people could have noticed. Or the opposite - being so fidgety or restless that you have been moving around a lot more than usual: not at all 9. Thoughts that you would be better off or of hurting yourself in some way: not at all Total score: 0 Depression Screening Interpretation: Negative Depression Screening Done: Yes 98137 - PHQ-9 Billing: Yes Source: Developed by Drs. Joaquín Persaud, Paulina Reis, Ferdinand Schafer and colleagues, with an educational ev from [employer]. Thrive Questionnaire Date Thrive assessed: 05/12/23 I am a: Patient What is your living situation today?: I have a steady place to live Within the past 12 months, did the food you bought not last and you didn't have the money to get more?: Never true Within the past 12 months, did you worry whether your food would run out before you got money to buy more?: Never true Do you have trouble paying for medicines?: No Do you have trouble getting transportation to medical appointments?: No Do you have trouble paying your heating and electricity bill?: No Do you have trouble taking care of your child, family member or friend?: No Do you have trouble with day-to-day activities such as bathing, preparing meals, shopping, managing finances, etc.?: No Are you currently unemployed and looking for a job?: No Are you interested in more education?: No Please select the resources that you would like help with: None Currently or been in a relationship where the following occur: no concerns reported THRIVE Score: 0 AUDIT C Alcohol Use Questionnaire (AUDIT-C) 1. How often do you have a drink containing alcohol?: Never 3. How often do you have six or more drinks on one occasion?: Never Total Score: 0 Score Reviewed/Action Taken: Yes ARTHUR-7 AMB Questionnaire ARTHUR-7 Date ARTHUR - 7 assessed: 05/12/23 Feeling nervous, anxious, or on edge: 0 = Not at all Not being able to stop or control worryin = Not at all Worrying too much about different things: 0 = Not at all Trouble relaxin = Not at all Being so restless that it is hard to sit still: 0 = Not at all Becoming easily annoyed or irritable: 0 = Not at all Feeling afraid as if something awful might happen: 0 = Not at all Total ARTHUR-7 score (0-4 normal; 5-9 mild; 10-14 moderate; 15-21 severe): 0 Source: Developed by Drs. Joaquín Persaud, Paulina Reis, Ferdinand Schafer and colleagues, with an educational ev from [employer]. Review of Systems Const Denies chills, Reports difficulty sleeping (wakes up often in the middle of the night to go to the bathroom), Reports fatigue, Denies fever(s) and Denies headache(s) ENT Denies dysphagia, Denies dizziness, Denies otalgia, Denies headache(s), Denies odynophagia and Denies sore throat Card Denies chest pain, Denies palpitations and Denies dyspnea Resp Denies cough, Denies dyspnea and Denies wheezing GI Denies abdominal pain, Denies hematochezia, Denies constipation, Denies dysphagia, Denies heartburn, Reports diarrhea (on and off), Denies nausea, Denies odynophagia and Denies vomiting Denies dysuria, Reports nocturia and Reports urinary frequency Musc Denies back pain and Reports arthralgias (mild left hip discomfort) Skin/Breast Denies rash Neuro Denies dizziness and Denies headache(s) Endo Reports fatigue and Denies palpitations Aller/Immun Denies wheezing Physical exam (Primary Care) Vital Signs: Last Vital Signs Pulse 57 05/12/23 15:52 BP 112/80 05/12/23 15:52 Pulse Ox 98 05/12/23 15:52 Oxygen Delivery Method Room Air 05/12/23 15:52 BMI result Body Mass Index 32.0 Tobacco/Smoking Status: Tobacco use Status Tobacco use date assessed 05/12/23 05/12/23 15:56 Patient Tobacco Use Status Never used Tobacco 05/12/23 15:56 e-Cigarette/Vaping Use Never Used 05/12/23 15:56 PHQ-9: PHQ-9 Score PHQ-9: Total score 0 05/12/23 23:17 Depression Screening Interpretation: Negative Thrive Assessment: Date of Thrive Assessment Date Thrive assessed 05/12/23 05/12/23 15:56 Currently or been in a relationship where the following occur: no concerns reported Const General: no acute distress and alert HENMT Ears: TM's normal bilaterally and EAC's normal Throat: Yes posterior oropharynx normal and Yes tonsils normal (no TP congestion noted) Neck Neck: Yes no lymphadenopathy and Yes supple Thyroid: Thyroid normal Resp Auscultation: clear to auscultation bilaterally, no rales and no wheezes Cardio Rate: regular rate Rhythm: regular rhythm Heart sounds: no murmurs GI Palpation (GI): Soft to palpation and nontender Auscultation: normal bowel sounds General: Yes no CVA tenderness Back/Spine/Pelvis Back: no CVA tenderness Skin Rashes: no rashes Extrem General: Yes no clubbing, cyanosis or edema Results Reviewed Results Reviewed: Laboratory Tests 05/08/23 05/08/23 12:37 12:38 WBC 7.0 Hgb 11.7 L Hct 33.6 L Plt Count 176 Sodium 135 Potassium 4.4 Creatinine 1.37 Estimated GFR 52 Fasting Glucose 93 Hemoglobin A1c % 4.9 Calcium 8.8 D AST 22 ALT 18 Triglycerides 150 H Cholesterol 189 LDL Cholesterol, Calc 107 H HDL Cholesterol 52 25-OH Vitamin D Total 25.3 L TSH 2.28 Ur Specific [place] 1.015 Urine Protein 300 (3+) H Urine Glucose (UA) Negative Urine Blood Trace H Urine Nitrite Negative Ur Leukocyte Esterase Negative Assessment and Plan Assessment & Plan (1) Pure hypercholesterolemia: Code(s): E78.00 - Pure hypercholesterolemia, unspecified Plan: Results of his labs done a few days ago reviewed and discussed with patient He is advised that his LDL cholesterol has increased slightly from previous to 107 mg/dL - goal is LDL cholesterol of less than 100 mg/dL, per Cardiology Reinforced low-cholesterol diet Will have patient recheck his labs and fasting lipids in 4 months for follow-up (2) Benign essential hypertension: Code(s): I10 - Essential (primary) hypertension Plan: Reinforced low sodium diet - goal is systolic BP of at least 120 to 130 mm or less Continue Metoprolol ER 50 mg QD (3) Paroxysmal atrial fibrillation: Comment: S/P synchronized cardioversion Code(s): I48.0 - Paroxysmal atrial fibrillation Plan: Patient currently remains in sinus rhythm and is doing well on rhythm control approach Continue Multaq 400 mg BID and Metoprolol ER 50 mg QD His CHADsVAsc score is at 1 and patient prefers not to take any anticoagulant at this time Follow-up with cardiology as scheduled - sees cardiology now once a year (4) Thoracic aortic aneurysm: Code(s): I71.2 - Thoracic aortic aneurysm, without rupture Qualifiers: Presence of rupture: without rupture Thoracic aorta location: unspecified Qualified Code(s): I71.20 - Thoracic aortic aneurysm, without rupture, unspecified Plan: Repeat echocardiogram done on 04/12/2022 showed that his LV appears dilated (LVEDD 6.6 cm) - was previously at normal size. The left ventricular systolic function is normal.? The calculated ejection fraction is 64% by biplane method. There is mild aortic valve regurgitation, mild mitral annular calcification and mild dilatation of the ascending aorta measuring 4.10 cm. Follow up with cardiology as scheduled for continuing surveillance (5) Prostate cancer metastatic to bone: Comment: staging is T1c, N0, N1B [place] 4+4 oligometastatic prostate cancer with tumor in bilateral pubic rami and the left 7th rib Code(s): C61 - Malignant neoplasm of prostate; C79.51 - Secondary malignant neoplasm of bone Plan: Continue Zytiga 1000 mg QD, Prednisone 5 mg QD (started on 09/17/2020) and Eligar d 45 mg Q 6 months Continue Tamsulosin 0.4 mg 2 tablets Q HS Patient received adjuvant radiation therapy from 01/04/2021 to 04/27/2021 with SBRT to right iliac bone; completed left ilium RT on 05/17/2021 and radiation to involved left 9th rib PET scan done on 02/11/2022 reportedly came out okay; PSA level continues to be below detectable range Follow up with urology, oncology and radiation oncology as scheduled (6) Iron deficiency anemia: Code(s): D50.9 - Iron deficiency anemia, unspecified Qualifiers: Iron deficiency anemia type: unspecified iron deficiency Qualified Code(s): D50.9 - Iron deficiency anemia, unspecified Plan: Stable; continue Feosol 65 mg QD Will continue to monitor his CBC regularly (7) Ulcerative colitis: Comment: 59-year-old male newly diagnosis prostate cancer, after colonoscopy with pathology showing-moderately active colitis- Patient is overwhelmed, certainly understandable given his multiple new diagnoses- Consulted with Dr. David (as requested previously) to assist in beginning/managing care in this complex patient Will get T spot, hep B status, he had stool calprotectin-04/30-august repeat Code(s): K51.90 - Ulcerative colitis, unspecified, without complications Qualifiers: Digestive disease complication type: without complication Ulcerative colitis location: unspecified ulcerative colitis location Qualified Code(s): K51.90 - Ulcerative colitis, unspecified, without complications Plan: Continue Mesalamine ER 1.5 gm QD and Mesalamine 4 gm Q HS Follow up with GI as scheduled (8) Vitamin D deficiency: Code(s): E55.9 - Vitamin D deficiency, unspecified Plan: Continue OTC Vitamin D3 2000 units QD (9) Obesity (BMI 30-39.9): Code(s): E66.9 - Obesity, unspecified Plan: Reinforced diet/exercise as tolerated/lose weight Plan Follow up in 4 months Orders: Orders Comprehensive Atkins. Panel Fast 4 Months E78.00 - Pure hypercholesterolemia, unspecified Complete Blood Count Auto Diff 4 Months D64.9 - Anemia, unspecified Lipid Panel 4 Months E78.00 - Pure hypercholesterolemia, unspecified TSH reflex Free T4 4 Months E78.00 - Pure hypercholesterolemia, unspecified UA CC w/rflx Micro + Cult 4 Months R30.0 - Dysuria Vitamin D 25-OH Total 4 Months E55.9 - Vitamin D deficiency, unspecified Coding Level of Care Code Est Pt Level 4 (43364) Diagnoses Pure hypercholesterolemia E78.00 Benign essential hypertension I10 Paroxysmal atrial fibrillation I48.0 Thoracic aortic aneurysm without rupture, unspecified part I71.20 Presence of rupture: without rupture Thoracic aorta location: unspecified Prostate cancer metastatic to bone C61; C79.51 Iron deficiency anemia, unspecified iron deficiency anemia type D50.9 Iron deficiency anemia type: unspecified iron deficiency Ulcerative colitis without complications, unspecified location K51.90 Digestive disease complication type: without complication Ulcerative colitis location: unspecified ulcerative colitis location Vitamin D deficiency E55.9 Obesity (BMI 30-39.9) E66.9
== END 2023-05-12 16:19 | disposition home or self-care (01) ==
PROVIDERS: PCP Internal Medicine; Visit Provider Internal Medicine
DX: I48.0 Paroxysmal atrial fibrillation (principal); I71.20 Thoracic aortic aneurysm, without rupture, unspecified; C61 Malignant neoplasm of prostate; C79.51 Secondary malignant neoplasm of bone; K51.90 Ulcerative colitis, unspecified, without complications; E78.00 Pure hypercholesterolemia, unspecified; I10 Essential (primary) hypertension; D50.9 Iron deficiency anemia, unspecified; E55.9 Vitamin D deficiency, unspecified; E66.9 Obesity, unspecified
CPT/HCPCS: 99214

== ENCOUNTER 2023-07-25 14:44 | Outpatient (REF) | payer OTHER, SELFPAY ==
[2023-07-25 15:25] LABS: MANUAL DIFF FLAG NO
[2023-07-25 15:39] LABS: Basophils Percent Auto 0.1 % (0-2); Eosinophils Absolute Auto 0.1 X10*3/uL (0.0-0.4); Hematocrit 34.3 % (42.0-52.0); Imm Gran Abs Auto 0.02 X10*3/uL (0.00-0.03); Imm Gran Pct Auto 0.3 % (0.0-0.4); Lymphocytes Percent Auto 15.2 % (20-40); Mean Corpuscular Hemoglobin 31.7 pg (27.0-33.0); Mean Corpuscular Volume 90.7 fL (80.0-98.0); Mean Platelet Volume 9.5 fL (9.4-12.4); Monocytes Absolute Auto 0.5 X10*3/uL (0.1-1.2); Monocytes Percent Auto 6.9 % (2-11); Neutrophils Absolute Auto 5.1 x10*3/uL (2.0-8.3); Neutrophils Percent Auto 76.5 % (45-73); Platelet Count 205 X10*3/uL (160-400); Red Blood Count 3.78 X10*6/uL (4.60-5.80); Red Cell Distribution Width 13.7 % (11.0-16.0); White Blood Count 6.7 X10*3/uL (4.8-10.8)
[2023-07-25 16:17] LABS: B Type Natriuretic Peptide 47 pg/mL (<100)
[2023-07-25 17:41] LABS: Alanine Aminotransferase 18 U/L (0-40); Albumin Level 3.3 g/dL (3.5-5.0); Alkaline Phosphatase 77 U/L (39-117); Anion Gap 12 (12-20); Aspartate Amino Transferase 20 U/L (5-37); Bilirubin Total 0.6 mg/dL (0.0-1.0); Blood Urea Nitrogen 21 mg/dL (9-16); Calcium 9.3 mg/dL (8.4-10.2); Carbon Dioxide 24 mmol/L (22-29); Chloride 105 mmol/L (96-108); Cholesterol 189 mg/dL (<200); Estimated Glomerular Filt Rate 50; Glucose Fasting 93 mg/dL (60-99); Glucose Random 93 mg/dL (60-115); HDL Cholesterol 45 mg/dL (>40); LDL Cholesterol Calculated 113 mg/dL (<100); Potassium 4.5 mmol/L (3.3-5.1); Sodium 136 mmol/L (135-145); Total Protein 6.3 g/dL (6.5-8.0); Triglycerides 159 mg/dL (<150); Vitamin D 25-OH Total 26.5 ng/mL (>30)
== END 2023-07-25 14:45 | disposition home or self-care (01) ==
LOC: HO.LAB 14:44
PROVIDERS: PCP Internal Medicine; Visit Provider Internal Medicine Cardiovascular Disease
DX: E55.9 Vitamin D deficiency, unspecified (principal); E78.00 Pure hypercholesterolemia, unspecified; I48.0 Paroxysmal atrial fibrillation; D64.9 Anemia, unspecified
CPT/HCPCS: 36415; 80048; 80053; 80061; 82306; 83880; 84443; 85025

== ENCOUNTER 2023-09-22 11:58 | Outpatient (REF) | payer OTHER, SELFPAY ==
[2023-09-22 14:33] LABS: Appearance Urine Clear; Color Urine Yellow; Glucose Urine UA Negative (Negative); Leukocyte Esterase Urine Negative (Negative); Nitrite Urine Negative (Negative); PH 5.5 (5.0-9.0); Specific Gravity - Urine 1.015 (1.005-1.025); UMIC TRIGGER UACC YES; Urine Blood Negative (Negative); Urine Ketones Negative (Negative); Urine Protein 300 (3+) mg/dL (Neg-Trace)
[2023-09-22 14:36] LABS: Bacteria Urine None Seen (None Seen); RBC Urine 0-2 /HPF (0-2); Squamous Epithelial Cell Urine 0-2 /HPF (0-2); WBC Urine 0-5 /HPF (0-5)
== END 2023-09-22 11:59 | disposition home or self-care (01) ==
LOC: HO.LAB 11:58
PROVIDERS: PCP Internal Medicine; Visit Provider Internal Medicine
DX: I10 Essential (primary) hypertension (principal)
CPT/HCPCS: 81001

== ENCOUNTER 2023-09-26 15:21 | Outpatient (AMB) | payer OTHER, SELFPAY ==
--- NOTE | 2023-09-26 15:22 | MHC.PC.OV ---
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: No Allergies No Known Allergies [No Known Allergies*] Allergy (Verified 09/26/23 16:02) Medication List - Last Reconciled 09/26/23 by Edis Nath MD abiraterone 1,000 mg PO DAILY calcium carbonate-vitamin D3 600 mg-12.5 mcg (500 unit) (Calcium 600 with Vitamin D3) caps PO dronedarone (Multaq) 400 mg PO BID 90 days leuprolide (Eligard) 7.5 mg subcut Q4W memantine 5 mg PO BID metoprolol succinate ER 50 mg PO DAILY 90 days prednisone 5 mg PO DAILY tamsulosin 0.8 mg (2 x 0.4 mg) PO BEDTIME 90 days Tobacco use date assessed: 09/26/23 Fall risk assessment: No Falls in past year Last assessed Fall Risk: 09/26/23 Dental Screening Dental Screen Date: 05/12/23 HPI 4 month f/u HPI Details Patient comes in today for his follow up visit States that he feels okay He denies any headaches or dizziness Denies any chest pains, no SOB No nausea/vomiting, no abdominal pain No change in bowel habits noted States that he went to the lab a couple of days ago to get his tests done but was apparently told that he only had a U/A ordered He did have some labs done for Dr. Muller a couple of months ago [facility] Medical History Vitamin D deficiency Prostate cancer metastatic to bone Thoracic aortic aneurysm Chronic diarrhea Obesity (BMI 30-39.9) Bladder outlet obstruction Iron deficiency anemia Paroxysmal atrial fibrillation Pure hypercholesterolemia Benign essential hypertension Surgical History Hx of colonoscopy History of cystoscopy History of hernia repair Family History Father Diabetes Kidney failure, acute Mother Diabetes Sister In good health Social History Household Members: None Housing: House Alcohol intake: never Patient Tobacco Use Status: Never used Tobacco e-Cigarette/Vaping Use: Never Used Second Hand Smoke Exposure: Yes service: No Current occupational status: employed Current occupation: [employer] Cognitive needs: No Hearing needs: Yes Vision needs: Yes Questionnaire PHQ-9 Over the last 2 weeks, how often have you been bothered by any of the following problems? 1. Little interest or pleasure in doing things: not at all 2. Feeling down, depressed, or hopeless: not at all 3. Trouble falling or staying asleep, or sleeping too much: not at all 4. Feeling tired or having little energy: not at all 5. Poor appetite or overeating: not at all 6. Feeling bad about yourself - or that you are a failure or have let yourself or your family down: not at all 7. Trouble concentrating on things, such as reading the newspaper or watching television: not at all 8. Moving or speaking so slowly that other people could have noticed. Or the opposite - being so fidgety or restless that you have been moving around a lot more than usual: not at all 9. Thoughts that you would be better off or of hurting yourself in some way: not at all Total score: 0 Depression Screening Interpretation: Negative Depression Screening Done: Yes 26554 - PHQ-9 Billing: Yes Source: Developed by Drs. Joaquín Persaud, Paulina Reis, Ferdinand Schafer and colleagues, with an educational ev from [employer]. Thrive Questionnaire Date Thrive assessed: 09/26/23 I am a: Patient What is your living situation today?: I have a steady place to live Within the past 12 months, did the food you bought not last and you didn't have the money to get more?: Never true Within the past 12 months, did you worry whether your food would run out before you got money to buy more?: Never true Do you have trouble paying for medicines?: No Do you have trouble getting transportation to medical appointments?: No Do you have trouble paying your heating and electricity bill?: No Do you have trouble taking care of your child, family member or friend?: No Do you have trouble with day-to-day activities such as bathing, preparing meals, shopping, managing finances, etc.?: No Are you currently unemployed and looking for a job?: No Are you interested in more education?: No Please select the resources that you would like help with: None Currently or been in a relationship where the following occur: no concerns reported THRIVE Score: 0 AUDIT C Alcohol Use Questionnaire (AUDIT-C) 1. How often do you have a drink containing alcohol?: Never 3. How often do you have six or more drinks on one occasion?: Never Total Score: 0 Score Reviewed/Action Taken: Yes ARTHUR-7 AMB Questionnaire ARTHUR-7 Date ARTHUR - 7 assessed: 05/12/23 Source: Developed by Drs. Joaquín Persaud, Paulina Reis, Ferdinand Schafer and colleagues, with an educational ev from [employer]. Review of Systems Const Denies chills, Reports difficulty sleeping (wakes up often in the middle of the night to go to the bathroom), Reports fatigue, Denies fever(s) and Denies headache(s) ENT Denies dysphagia, Denies dizziness, Denies otalgia, Denies headache(s), Denies odynophagia and Denies sore throat Card Denies chest pain, Denies palpitations and Denies dyspnea Resp Denies cough, Denies dyspnea and Denies wheezing GI Denies abdominal pain, Denies hematochezia, Denies constipation, Denies dysphagia, Denies heartburn, Reports diarrhea (on and off), Denies nausea, Denies odynophagia and Denies vomiting Denies dysuria, Reports nocturia and Reports urinary frequency Musc Denies back pain and Reports arthralgias (mild left hip discomfort) Skin/Breast Denies rash Neuro Denies dizziness and Denies headache(s) Endo Reports fatigue and Denies palpitations Aller/Immun Denies wheezing Physical exam (Primary Care) Vital Signs: Last Vital Signs Pulse 62 09/26/23 15:23 BP 112/68 09/26/23 15:23 Pulse Ox 97 09/26/23 15:23 Oxygen Delivery Method Room Air 09/26/23 15:23 BMI result Body Mass Index 34.1 Tobacco/Smoking Status: Tobacco use Status Tobacco use date assessed 09/26/23 09/26/23 15:24 Patient Tobacco Use Status Never used Tobacco 09/26/23 15:24 e-Cigarette/Vaping Use Never Used 09/26/23 15:24 PHQ-9: PHQ-9 Score PHQ-9: Total score 0 09/26/23 16:15 Depression Screening Interpretation: Negative Thrive Assessment: Date of Thrive Assessment Date Thrive assessed 09/26/23 09/26/23 16:15 Currently or been in a relationship where the following occur: no concerns reported Const General: no acute distress and alert HENMT Ears: TM's normal bilaterally and EAC's normal Throat: Yes posterior oropharynx normal and Yes tonsils normal (no TP congestion noted) Neck Neck: Yes no lymphadenopathy and Yes supple Thyroid: Thyroid normal Resp Auscultation: clear to auscultation bilaterally, no rales and no wheezes Cardio Rate: regular rate Rhythm: regular rhythm Heart sounds: no murmurs GI Palpation (GI): Soft to palpation and nontender Auscultation: normal bowel sounds General: Yes no CVA tenderness Back/Spine/Pelvis Back: no CVA tenderness Skin Rashes: no rashes Extrem General: Yes no clubbing, cyanosis or edema Results Reviewed Results Reviewed: Laboratory Tests 07/25/23 09/22/23 15:24 12:43 WBC 6.7 Hgb 12.0 L Hct 34.3 L Plt Count 205 Sodium 136 Potassium 4.5 Creatinine 1.43 H Estimated GFR 50 Fasting Glucose 93 Calcium 9.3 AST 20 ALT 18 Triglycerides 159 H Cholesterol 189 LDL Cholesterol, Calc 113 H HDL Cholesterol 45 25-OH Vitamin D Total 26.5 L TSH 2.00 Ur Specific [place] 1.015 Urine Protein 300 (3+) H Urine Glucose (UA) Negative Urine Blood Negative Urine Nitrite Negative Ur Leukocyte Esterase Negative Assessment and Plan Assessment & Plan (1) Pure hypercholesterolemia: Code(s): E78.00 - Pure hypercholesterolemia, unspecified Plan: Patient did not have any follow up labs done recently - states that he went to the lab a couple of days ago to get his tests done but was apparently told that he only had a U/A ordered He did have some labs done for Dr. Muller a couple of months ago Reinforced low-cholesterol diet - goal is LDL cholesterol of less than 100 mg/dL, per cardiology Will have patient recheck his labs and fasting lipids in 4 months for follow-up (2) Benign essential hypertension: Code(s): I10 - Essential (primary) hypertension Plan: Reinforced low sodium diet - goal is systolic BP of at least 120 to 130 mm or less Continue Metoprolol ER 50 mg QD (3) Paroxysmal atrial fibrillation: Comment: S/P synchronized cardioversion Code(s): I48.0 - Paroxysmal atrial fibrillation Plan: Patient currently remains in sinus rhythm and is doing well on rhythm control approach Continue Multaq 400 mg BID and Metoprolol ER 50 mg QD His CHADsVAsc score is at 1 and patient prefers not to take any anticoagulant at this time Follow-up with cardiology as scheduled - sees cardiology just once a year now (4) Thoracic aortic aneurysm: Code(s): I71.2 - Thoracic aortic aneurysm, without rupture Qualifiers: Presence of rupture: without rupture Thoracic aorta location: unspecified Qualified Code(s): I71.20 - Thoracic aortic aneurysm, without rupture, unspecified Plan: Repeat echocardiogram done in 04/2023 showed that his LV appears dilated (LVEDD 6.6 cm) - was previously at normal size. The left ventricular systolic function is normal.? The calculated ejection fraction is 64% by biplane method. There is mild aortic valve regurgitation, mild mitral annular calcification and mild dilatation of the ascending aorta measuring 4.1 cm, which is mostly uncahnged from last year Follow up with cardiology as scheduled for continuing surveillance (5) Iron deficiency anemia: Code(s): D50.9 - Iron deficiency anemia, unspecified Qualifiers: Iron deficiency anemia type: unspecified iron deficiency Qualified Code(s): D50.9 - Iron deficiency anemia, unspecified Plan: Stable; continue Feosol 65 mg QD Will continue to monitor his CBC regularly (6) Ulcerative colitis: Comment: 59-year-old male newly diagnosis prostate cancer, after colonoscopy with pathology showing-moderately active colitis- Patient is overwhelmed, certainly understandable given his multiple new diagnoses- Consulted with Dr. David (as requested previously) to assist in beginning/managing care in this complex patient Will get T spot, hep B status, he had stool calprotectin-04/30-august repeat Code(s): K51.90 - Ulcerative colitis, unspecified, without complications Qualifiers: Digestive disease complication type: without complication Ulcerative colitis location: unspecified ulcerative colitis location Qualified Code(s): K51.90 - Ulcerative colitis, unspecified, without complications Plan: Continue Mesalamine ER 1.5 gm QD and Mesalamine 4 gm Q HS Follow up with GI as scheduled (7) Vitamin D deficiency: Code(s): E55.9 - Vitamin D deficiency, unspecified Plan: Continue OTC Vitamin D3 2000 units QD (8) Prostate cancer metastatic to bone: Comment: staging is T1c, N0, N1B Lisette 4+4 oligometastatic prostate cancer with tumor in bilateral pubic rami and the left 7th rib Code(s): C61 - Malignant neoplasm of prostate; C79.51 - Secondary malignant neoplasm of bone Plan: Continue Zytiga 1000 mg QD, Prednisone 5 mg QD (started on 09/17/2020) and Eligard 45 mg Q 6 months Continue Tamsulosin 0.4 mg 2 tablets Q HS Patient received adjuvant radiation therapy from 01/04/2021 to 04/27/2021 with SBRT to right iliac bone; completed left ilium RT on 05/17/2021 and radiation to involved left 9th rib PET scan done on 02/11/2022 reportedly came out okay; PSA level continues to be below detectable range Follow up with urology, oncology and radiation oncology as scheduled (9) Obesity (BMI 30-39.9): Code(s): E66.9 - Obesity, unspecified Plan: Reinforced diet/exercise as tolerated/lose weight Plan Follow up in 4 months Orders: Orders Comprehensive [place]. Panel Fast 4 Months E78.00 - Pure hypercholesterolemia, unspecified Lipid Panel 4 Months E78.00 - Pure hypercholesterolemia, unspecified TSH reflex Free T4 4 Months E78.00 - Pure hypercholesterolemia, unspecified Complete Blood Count Auto Diff 4 Months D64.9 - Anemia, unspecified UA CC w/rflx Micro + Cult 4 Months R30.0 - Dysuria Vitamin D 25-OH Total 4 Months E55.9 - Vitamin D deficiency, unspecified Coding Level of Care Code Est Pt Level 4 (19459) Complex EM visit Add On G2211 Diagnoses Pure hypercholesterolemia E78.00 Benign essential hypertension I10 Paroxysmal atrial fibrillation I48.0 Thoracic aortic aneurysm without rupture, unspecified part I71.20 Presence of rupture: without rupture Thoracic aorta location: unspecified Iron deficiency anemia, unspecified iron deficiency anemia type D50.9 Iron deficiency anemia type: unspecified iron deficiency Ulcerative colitis without complications, unspecified location K51.90 Digestive disease complication type: without complication Ulcerative colitis location: unspecified ulcerative colitis location Vitamin D deficiency E55.9 Prostate cancer metastatic to bone C61; C79.51 Obesity (BMI 30-39.9) E66.9
[2023-09-26 15:23] VITALS: BP 112/68; PULSE 62; O2SAT 97; BMI 34.1
== END 2023-09-26 16:12 | disposition home or self-care (01) ==
PROVIDERS: PCP Internal Medicine; Visit Provider Internal Medicine
DX: E78.00 Pure hypercholesterolemia, unspecified (principal); I10 Essential (primary) hypertension; I48.0 Paroxysmal atrial fibrillation; I71.20 Thoracic aortic aneurysm, without rupture, unspecified
CPT/HCPCS: 99214; G2211

== ENCOUNTER → 2023-10-24 14:44 | Outpatient (BNVA) | payer OTHER, SELFPAY | PROVIDERS: PCP Internal Medicine; Visit Provider Internal Medicine Cardiovascular Disease ==

== ENCOUNTER 2024-01-24 14:18 | Outpatient (REF) | payer OTHER, SELFPAY ==
[2024-01-24 14:37] LABS: MANUAL DIFF FLAG NO
[2024-01-24 15:57] LABS: Basophils Percent Auto 0.1 % (0-2); Eosinophils Percent Auto 0.4 % (0-4); Hematocrit 33.3 % (42.0-52.0); Hemoglobin 11.9 g/dl (14.0-18.0); Imm Gran Abs Auto 0.02 X10*3/uL (0.00-0.03); Imm Gran Pct Auto 0.3 % (0.0-0.4); Lymphocytes Absolute Auto 1.1 X10*3/uL (1.2-4.9); Lymphocytes Percent Auto 13.5 % (20-40); Mean Corpuscular HGB Conc 35.7 g/dl (31.0-36.0); Mean Corpuscular Hemoglobin 32.5 pg (27.0-33.0); Mean Platelet Volume 10.1 fL (9.4-12.4); Monocytes Absolute Auto 0.6 X10*3/uL (0.1-1.2); Monocytes Percent Auto 7.2 % (2-11); Neutrophils Absolute Auto 6.2 x10*3/uL (2.0-8.3); Neutrophils Percent Auto 78.5 % (45-73); Platelet Count 201 X10*3/uL (160-400); Red Blood Count 3.66 X10*6/uL (4.60-5.80); Red Cell Distribution Width 13.8 % (11.0-16.0); White Blood Count 7.9 X10*3/uL (4.8-10.8)
[2024-01-24 16:36] LABS: Appearance Urine Clear; Color Urine Yellow; Glucose Urine UA Negative (Negative); Leukocyte Esterase Urine Negative (Negative); Nitrite Urine Negative (Negative); PH 5.5 (5.0-9.0); Specific Gravity - Urine 1.015 (1.005-1.025); UMIC TRIGGER UACC YES; Urine Blood Small (1+) (Negative); Urine Ketones Negative (Negative); Urine Protein 300 (3+) mg/dL (Neg-Trace)
[2024-01-24 16:37] LABS: Alanine Aminotransferase 20 U/L (0-40); Albumin Level 3.4 g/dL (3.5-5.0); Alkaline Phosphatase 77 U/L (39-117); Anion Gap 10 (12-20); Aspartate Amino Transferase 25 U/L (5-37); Bilirubin Total 0.5 mg/dL (0.0-1.0); Blood Urea Nitrogen 20 mg/dL (9-16); Calcium 9.6 mg/dL (8.4-10.2); Carbon Dioxide 24 mmol/L (22-29); Chloride 105 mmol/L (96-108); Cholesterol 192 mg/dL (<200); Estimated Glomerular Filt Rate 51; Glucose Fasting 89 mg/dL (60-99); HDL Cholesterol 50 mg/dL (>40); LDL Cholesterol Calculated 102 mg/dL (<100); Potassium 4.3 mmol/L (3.3-5.1); Sodium 135 mmol/L (135-145); Total Protein 6.2 g/dL (6.5-8.0); Triglycerides 202 mg/dL (<150)
[2024-01-24 16:58] LABS: TSH reflex Free T4 2.18 uIU/mL (0.32-4.0); Vitamin D 25-OH Total 33.1 ng/mL (>30)
[2024-01-24 18:40] LABS: Bacteria Urine None Seen (None Seen); RBC Urine 0-2 /HPF (0-2); Squamous Epithelial Cell Urine 0-2 /HPF (0-2); WBC Urine 0-5 /HPF (0-5)
== END 2024-01-24 14:19 | disposition home or self-care (01) ==
LOC: HO.LAB 14:18
PROVIDERS: PCP Internal Medicine; Visit Provider Internal Medicine
DX: D64.9 Anemia, unspecified (principal); E78.00 Pure hypercholesterolemia, unspecified; E55.9 Vitamin D deficiency, unspecified
CPT/HCPCS: 36415; 80053; 80061; 81001; 81003; 82306; 84443; 85025

== ENCOUNTER 2024-01-29 13:16 | Outpatient (AMB) | payer OTHER, SELFPAY ==
--- NOTE | 2024-01-29 13:24 | MHC.PC.OV ---
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 Accompanied by: Self / Same As Patient Allergies No Known Allergies [No Known Allergies*] Allergy (Verified 01/29/24 13:25) Tobacco use date assessed: 01/29/24 Fall risk assessment: No Falls in past year Last assessed Fall Risk: 01/29/24 Dental Screening Dental Screen Date: 01/29/24 Did you have a dental visit in the last 12 months?: Yes Did you have a dental problem in the last 6 months where you did not have access to dental care?: No Was dental information given to patient?: Patient has dentist [facility] Medical History Vitamin D deficiency Prostate cancer metastatic to bone Thoracic aortic aneurysm Chronic diarrhea Obesity (BMI 30-39.9) Bladder outlet obstruction Iron deficiency anemia Paroxysmal atrial fibrillation Pure hypercholesterolemia Benign essential hypertension Surgical History Hx of colonoscopy History of cystoscopy History of hernia repair Family History Father Diabetes Kidney failure, acute Mother Diabetes Sister In good health Social History Household Members: None Housing: House Alcohol intake: never Patient Tobacco Use Status: Never used Tobacco e-Cigarette/Vaping Use: Never Used Second Hand Smoke Exposure: Yes service: No Current occupational status: employed Current occupation: [employer] Cognitive needs: No Hearing needs: Yes Vision needs: Yes Questionnaire PHQ-9 Over the last 2 weeks, how often have you been bothered by any of the following problems? 1. Little interest or pleasure in doing things: not at all 2. Feeling down, depressed, or hopeless: not at all 3. Trouble falling or staying asleep, or sleeping too much: not at all 4. Feeling tired or having little energy: not at all 5. Poor appetite or overeating: not at all 6. Feeling bad about yourself - or that you are a failure or have let yourself or your family down: not at all 7. Trouble concentrating on things, such as reading the newspaper or watching television: not at all 8. Moving or speaking so slowly that other people could have noticed. Or the opposite - being so fidgety or restless that you have been moving around a lot more than usual: not at all 9. Thoughts that you would be better off or of hurting yourself in some way: not at all Total score: 0 Depression Screening Interpretation: Negative Depression Screening Done: Yes 24657 - PHQ-9 Billing: Yes Source: Developed by Drs. Joaquín Persaud, Paulina Reis, Ferdinand Schafer and colleagues, with an educational ev from [employer]. Thrive Questionnaire Date Thrive assessed: 01/29/24 I am a: Patient What is your living situation today?: I have a steady place to live Within the past 12 months, did the food you bought not last and you didn't have the money to get more?: Never true Within the past 12 months, did you worry whether your food would run out before you got money to buy more?: Never true Do you have trouble paying for medicines?: No Do you have trouble getting transportation to medical appointments?: No Do you have trouble paying your heating and electricity bill?: No Do you have trouble taking care of your child, family member or friend?: No Do you have trouble with day-to-day activities such as bathing, preparing meals, shopping, managing finances, etc.?: No Are you currently unemployed and looking for a job?: No Are you interested in more education?: No Please select the resources that you would like help with: None Currently or been in a relationship where the following occur: No concerns reported THRIVE Score: 0 AUDIT C Alcohol Use Questionnaire (AUDIT-C) 1. How often do you have a drink containing alcohol?: Never 3. How often do you have six or more drinks on one occasion?: Never Total Score: 0 Score Reviewed/Action Taken: Yes ARTHUR-7 AMB Questionnaire ARTHUR-7 Date ARTHUR - 7 assessed: 01/29/24 Feeling nervous, anxious, or on edge: 0 = Not at all Not being able to stop or control worryin = Not at all Worrying too much about different things: 0 = Not at all Trouble relaxin = Not at all Being so restless that it is hard to sit still: 0 = Not at all Becoming easily annoyed or irritable: 0 = Not at all Feeling afraid as if something awful might happen: 0 = Not at all Total ARTHUR-7 score (0-4 normal; 5-9 mild; 10-14 moderate; 15-21 severe): 0 Source: Developed by Drs. Joaquín Persaud, Paulina eRis, Ferdinand Schafer and colleagues, with an educational ev from [employer]. Physical exam (Primary Care) Vital Signs: Last Vital Signs Pulse 52 01/29/24 13:25 BP 110/70 01/29/24 13:25 Pulse Ox 94 01/29/24 13:25 Oxygen Delivery Method Room Air 01/29/24 13:25 BMI result Body Mass Index 35.0 Tobacco/Smoking Status: Tobacco use Status Tobacco use date assessed 01/29/24 01/29/24 13:26 Patient Tobacco Use Status Never used Tobacco 01/29/24 13:26 e-Cigarette/Vaping Use Never Used 01/29/24 13:26 PHQ-9: PHQ-9 Score PHQ-9: Total score 0 01/29/24 13:38 Depression Screening Interpretation: Negative Thrive Assessment: Date of Thrive Assessment Date Thrive assessed 01/29/24 01/29/24 13:26 Currently or been in a relationship where the following occur: No concerns reported Office Procedures Flu Questionnaire Does the patient have a severe egg allergy?: No Immunizations Fluarix Triv [id number] (PF) 45 mcg (15 mcg x 3)/0.5 mL IM syringe Performing Provider: Edis Nath MD [facility] Documented (not given) by: JULEE Negrete on 01/29/24 13:38 Reason Not Given: Received Previously Coding Assessment & Plan Assessment & Plan Orders: Orders Influenza [id number] Immunization Today Z23 - Encounter for immunization Comprehensive [place]. Panel Fast 4 Months E78.00 - Pure hypercholesterolemia, unspecified Complete Blood Count Auto Diff 4 Months D64.9 - Anemia, unspecified Lipid Panel 4 Months E78.00 - Pure hypercholesterolemia, unspecified Medications: Refilled metoprolol succinate ER 50 mg PO DAILY 90 days 90 tabs 3RF I10 - Essential (primary) hypertension, I48.0 - Paroxysmal atrial fibrillation
[2024-01-29 13:25] VITALS: BP 110/70; PULSE 52; O2SAT 94; BMI 35.0
== END 2024-01-29 14:17 | disposition home or self-care (01) ==
PROVIDERS: PCP Internal Medicine; Visit Provider Internal Medicine
DX: Z23 Encounter for immunization (principal)

== ENCOUNTER → 2024-01-29 13:16 | Outpatient (BNVA) | payer OTHER, SELFPAY | PROVIDERS: PCP Internal Medicine; Visit Provider Internal Medicine | DX: E78.00 Pure hypercholesterolemia, unspecified (principal); I10 Essential (primary) hypertension; I48.0 Paroxysmal atrial fibrillation; I71.20 Thoracic aortic aneurysm, without rupture, unspecified; K51.90 Ulcerative colitis, unspecified, without complications; D50.9 Iron deficiency anemia, unspecified; E55.9 Vitamin D deficiency, unspecified; C61 Malignant neoplasm of prostate; C79.51 Secondary malignant neoplasm of bone; E66.9 Obesity, unspecified; Z68.35 Body mass index [BMI] 35.0-35.9, adult; Z79.899 Other long term (current) drug therapy | CPT/HCPCS: 90471; 96127 ==

== ENCOUNTER 2024-05-29 12:37 | Outpatient (REF) | payer OTHER, SELFPAY ==
[2024-05-29 12:53] LABS: MANUAL DIFF FLAG NO
--- OUTSIDE RECORDS SUMMARY | 2024-05-29 12:55 | XMS_ITS | Encounter Summary ---
Author Organization Located Within [facility] Address [phone] [facility] [place] [address] Care Team Providers Care Software Controls Engineer Name Role Phone Edis Nath MD Primary Care Provider [phone] Self-Referred, Patient Unavailable Unavailab Cammie Anderson MD Unavailable [phone] Gonzalo Sotomayor MD, MPH Unavailable [phone] Amilcar Fan MD Unavailable [phone] Nadia Sharp MD Unavailable [phone] Ashley Lilly MD Unavailable Encounter Details Date Type Department Care Team (Late st Contact Info) Description 12/29/2021 Procedure Pass [facility], Radiology Department Social History Tobacco Use Types Packs/Day Years Used Date Smoking Tobacco: Never Smokeless Tobacco: Never Alcohol Use Standard Drinks/Week Comments Not Currently 0 (1 standard drink = 0.6 oz pur e alcohol) Sex and Gender Information Value Date Recorded Sex Assigned at Not on file Gender Identity Not on file Sexual Orientation Not on file documented as of this encounter Plan of Treatment Not on file documented as of this encounter Visit Diagnoses Not on filedocumented in this encounter Care Teams Software Controls Engineer Relationship Specialty Start Date End Date Edis Nath MD [address] [place] [address] [address] [place] [address] PCP - General Internal Medicine 10/13/20 Self-Referred, Patient 10/13/20 Cammie Breen MD [address] [place] [address] [email or web address] Medical Oncology 10/13/20 Gonzalo Sotomayor MD, MPH [address] [place] [address], [address] [address] [email or web address] Radiation Oncology 10/26/20 Amilcar Fan MD [address] [place] [id number] Internal Medicine 11/19/20 Nadia Sharp MD [address] [place] [id number] [email or web address] Radiation Oncology 12/07/21 Ashley Lilly MD [facility] [place] [address] [email or web address] Radiation Oncology 12/21/21 documented as of this encounter Additional Source Comments The information contained in this document represents components of the legal health record. It is not the complete legal health record.Located Within [facility]
--- OUTSIDE RECORDS SUMMARY | 2024-05-29 12:55 | XMS_ITS | Encounter Summary ---
Author Organization [facility] Address [phone] Pending sale to [facility] [address] Care Team Providers Care Stitchdown Thread Laster Name Role Phone Edis Nath MD Primary Care Provider [phone] Self-Referred, Patient Unavailable Unavailab Cammie Anderson MD Unavailable [phone] Gonzalo Sotomayor MD, MPH Unavailable [phone] Amilcar Fna MD Unavailable [phone] Nadia Sharp MD Unavailable Ashley Lilly MD Unavailable Reason for Referral * MRI/CAT Scan - Closed Specialty Diagnoses / Procedures Referred By Marty hanson Referred To Contact Radiology Diagnoses Secondary malignant neoplasm of bone and bone marrow Procedures CT Chest Nadia Sharp MD [address] [place] [phone] Email: [email or web address] Referral ID Status Reason Start Date Expiration Date Visits Re quested Visits Authorized [id number] Closed 12/23/2021 02/21/2022 1 1 Reason for Visit * MRI/CAT Scan - Closed Specialty Diagnoses / Procedures Referred By Marty hanson Referred To Contact Radiology Diagnoses Secondary malignant neoplasm of bone and bone marrow Procedures CT Chest Nadia Sharp MD [address] [place] [phone] Email: [email or web address] Referral ID Status Reason Start Date Expiration Date Visits Re quested Visits Authorized [id number] Closed 12/23/2021 02/21/2022 1 1 Encounter Details Date Type Department Care Team (Late st Contact Info) Description 12/31/2021 1:30 PM EDT Hospital Encounter [facility], Radiology Department Nadia Sharp MD [address] [place] [id number] JUAN [email or web address] Social History Tobacco Use Types Packs/Day Years [...] marrow documented in this encounter Care Teams Stitchdown Thread Laster Relationship Specialty Start Date End Date Edis Nath MD [address] [place] [address] [place] [address] [place] [address] PCP - General Internal Medicine 10/13/20 Self-Referred, Patient 10/13/20 Cammie Breen MD [address] [place] [address] [email or web address] Medical Oncology 10/13/20 Gonzalo Sotomayor MD, MPH [address] [place] [address], [facility] [place] [address] [email or web address] Oncology 10/26/20 Amilcar Fan MD [address] [place] [phone] Internal Medicine 11/19/20 Nadia Sharp MD [address] [place] [phone] [email or web address] Oncology 12/07/21 Ashley Lilly MD [facility] [place] [address] [email or web address] Radiation Oncology 12/21/21 documented as of this encounter Additional Source Comments The information contained in this document represents components of the legal health record. It is not the complete legal health record.[facility]
--- OUTSIDE RECORDS SUMMARY | 2024-05-29 12:56 | XMS_ITS | Clinical Summary ---
Author Organization [facility] Address [phone] [facility] for[MD] [place] [address] Care Team Providers Care Wwe Wrestler Name Role Phone Edis Nath MD Primary Care Provider [phone] Self-Referred, Patient Unavailable Unavailab Cammie Anderson MD Unavailable [phone] Gonzalo Sotomayor MD, MPH Unavailable [phone] Amilcar Fan MD Unavailable Nadia Sharp MD Unavailable Ashley Lilly MD Unavailable Allergies No known active allergies Medications Medication Sig Dispensed Refills Start Date End Date Status metoprolol succinate (TOPROL-XL) 50 MG 24 hr tablet Take 50 mg by mouth daily. 10/22/2020 Active abiraterone 500 mg Tab 11/04/2020 Ac tive predniSONE (DELTASONE) 5 MG tablet 11/04/2020 Active tamsulosin (FLOMAX) 0.4 mg Cap TAKE 1 CAPSULE BY MOUTH TWO TIMES A DAY 10/22/2020 Active MULTAQ 400 mg tablet Take 400 mg by mouth 2 (two) times a day. 08/16/2020 Active multivitamins with minerals- folic acid-lycopene (MEN'S ONE-A-DAY) 400-20-300 mcg Tab Take 1 tablet by mouth daily. Active Active Problems Problem Noted Date Diagnosed Date At risk for falls 12/21/2021 Prostate cancer metastatic to bone 11/19/2020 Cancer Staging:Clinical stage from 06/29/2020:Stage IVB(cT1c, cN0, cM1b, PSA: 38.8, Grade Group: 4, 06/29/20, Lisette: 4, +: 4) - Signed by Gonzalo Sotomayor MD, MPH on 11/19/2020 Immunizations Name Administration Dates Next Due COVID-19 (Pre-01/30) Pfizer Vaccine, mRNA, PF 04/19/2020,03/29/2020 Influenza Quadrivalent MDCK Preservative Free IM 01/17/2018 Influenza Quadrivalent Preservative Free IM 10/2019 Influenza Quadrivalent w/ Preservative IM 2018,02/01/2017,01/13/2016 Tdap 02/16/2016 Zoster recombinant 06/18/2019,02/28/2019 Social History Tobacco Use Types Packs/Day Years [...] on file Sexual Orientation Not on file Last Filed Vital Signs Vital Sign Reading Time Taken Comments Blood Pressure 122/72 12/21/2021 2:07 PM EDT Pulse 74 12/21/2021 2:07 PM EDT Temperature 36.9 ??C (98.4 ??F) 12/21/2021 2:07 PM ED T Respiratory Rate 18 12/21/2021 2:07 PM EDT Oxygen Saturation 98% 12/21/2021 2:07 PM EDT Inhaled Oxygen Concentration - - Weight 96.9 kg (213 lb 9.6 oz) 12/21/2021 2:07 P M EDT Height 167.4 cm (5' 5.91 ) 10/23/2020 3:28 PM ED T Body Mass Index 34.57 10/23/2020 3:28 PM EDT Plan of Treatment Health Maintenance Due Date Last Done Comments LIPID PANEL 1958 DEPRESSION SCREENING 1970 HEPATITIS B SCREENING 1976 HEPATITIS C SCREENING 1976 HIV ONE-TIME SCREENING (18-65 YEARS) 1976 SCREENING FOR DIABETES 1993 COLOGUARD 09/09/2003 COLONOSCOPY 09/09/2003 COLORECTAL CANCER SCREENING 09/09/2003 FIT TEST 09/09/2003 FOBT 09/09/2003 SIGMOIDOSCOPY 09/09/2003 VIRTUAL COLONOSCOPY 09/09/2003 PNEUMOCOCCAL VACCINES (50+ years) (2 of 2 - PCV) 01/25/2022 01/25/2021 INFLUENZA VACCINE (#1) 2023 , 01/15/2020, 01/24/2019, Additional history exists COVID-19 VACCINE ( season) 2023 09/03/2021, 02/04/2021, 04/19/2020, Additional history exists Adult Td,Tdap Booster 02/15/2026 02/16/2016 RSV VACCINE (1 - 1-dose 75+ series) 2033 ZOSTER VACCINES Completed 06/18/2019, 02/28/2019 SMOKING STATUS SCREENING (Once After 26 Yrs) Completed 12/21/2021 HEPATITIS A VACCINES Aged Out No long er eligible based on patient's age to complete this topic HEPATITIS B VACCINES Aged Out No long er eligible based on patient's age to complete this topic HIB VACCINES Aged Out No longer eligi ble based on patient's age to complete this topic MENINGOCOCCAL VACCINES (ACWY) Aged Out No longer eligible based on patient's age to complete this topic Medical Devices Not on file Care Teams Wwe Wrestler Relationship Specialty Start Date End Date Edis Nath MD [address] [place] [phone] PCP - General Internal Medicine 10/13/20 Self-Referred, Patient 10/13/20 Cammie Breen MD [address] [place] [address] [email or web address] Medical Oncology 10/13/20 Gonzalo Sotomayor MD, MPH [address] [place] [phone] [email or web address] Radiation Oncology 10/26/20 Amilcar Fan MD [address] [place] [phone] Internal Medicine 11/19/20 Nadia Sharp MD [address] [place] [address] [email or web address] Radiation Oncology 12/07/21 Ashley Lilly MD [address] [place] [address] [email or web address] Radiation Oncology 12/21/21 Additional Source Comments The information contained in this document represents components of the legal health record. It is not the complete legal health record.[facility]
[2024-05-29 13:50] LABS: Basophils Percent Auto 0.1 % (0-2); Eosinophils Absolute Auto 0.1 X10*3/uL (0.0-0.4); Eosinophils Percent Auto 1.2 % (0-4); Hematocrit 34.1 % (42.0-52.0); Hemoglobin 11.9 g/dl (14.0-18.0); Imm Gran Abs Auto 0.03 X10*3/uL (0.00-0.03); Imm Gran Pct Auto 0.4 % (0.0-0.4); Lymphocytes Absolute Auto 0.8 X10*3/uL (1.2-4.9); Lymphocytes Percent Auto 11.8 % (20-40); Mean Corpuscular HGB Conc 34.9 g/dl (31.0-36.0); Mean Corpuscular Hemoglobin 31.5 pg (27.0-33.0); Mean Corpuscular Volume 90.2 fL (80.0-98.0); Mean Platelet Volume 10.1 fL (9.4-12.4); Monocytes Absolute Auto 0.4 X10*3/uL (0.1-1.2); Monocytes Percent Auto 6.2 % (2-11); Neutrophils Absolute Auto 5.6 x10*3/uL (2.0-8.3); Neutrophils Percent Auto 80.3 % (45-73); Platelet Count 173 X10*3/uL (160-400); Red Blood Count 3.78 X10*6/uL (4.60-5.80)
[2024-05-29 14:03] LABS: Appearance Urine Clear; Color Urine Yellow; Glucose Urine UA Negative (Negative); Leukocyte Esterase Urine Negative (Negative); Nitrite Urine Negative (Negative); PH 5.5 (5.0-9.0); UMIC TRIGGER UACC YES; Urine Blood Small (1+) (Negative); Urine Ketones Negative (Negative); Urine Protein 300 (3+) mg/dL (Neg-Trace)
[2024-05-29 14:17] LABS: Bacteria Urine None Seen (None Seen); RBC Urine 0-2 /HPF (0-2); Squamous Epithelial Cell Urine 0-2 /HPF (0-2); WBC Urine 0-5 /HPF (0-5)
[2024-05-29 14:21] LABS: Alanine Aminotransferase 24 U/L (0-40); Albumin Level 3.3 g/dL (3.5-5.0); Alkaline Phosphatase 82 U/L (39-117); Anion Gap 9 (12-20); Aspartate Amino Transferase 37 U/L (5-37); Bilirubin Total 0.6 mg/dL (0.0-1.0); Blood Urea Nitrogen 21 mg/dL (9-16); Calcium 8.9 mg/dL (8.4-10.2); Carbon Dioxide 25 mmol/L (22-29); Chloride 106 mmol/L (96-108); Cholesterol 179 mg/dL (<200); Estimated Glomerular Filt Rate 56; Glucose Fasting 90 mg/dL (60-99); HDL Cholesterol 46 mg/dL (>40); LDL Cholesterol Calculated 105 mg/dL (<100); Potassium 4.3 mmol/L (3.3-5.1); Sodium 136 mmol/L (135-145); Total Protein 6.4 g/dL (6.5-8.0); Triglycerides 143 mg/dL (<150)
== END 2024-05-29 12:38 | disposition home or self-care (01) ==
LOC: HO.LAB 12:37
PROVIDERS: PCP Internal Medicine; Visit Provider Internal Medicine
DX: D64.9 Anemia, unspecified (principal); E78.00 Pure hypercholesterolemia, unspecified
CPT/HCPCS: 36415; 80053; 80061; 81001; 81003; 85025

== ENCOUNTER 2024-06-03 12:44 | Outpatient (AMB) | payer OTHER, SELFPAY ==
[2024-06-03 12:47] VITALS: BP 122/80; PULSE 57; O2SAT 97; BMI 34.3
--- NOTE | 2024-06-03 12:47 | A.OFFPC_ITS ---
Vital Signs 06/03/24 12:47 Height 5 ft 8 in Weight 225 lb 6 oz BMI 34.3 BP 122/80 Blood Pressure Location Lt brachial Position Sitting Pulse 57 Pulse Source Pulse Oximeter Pulse Oximetry (%) 97 Oxygen Delivery Method Room Air Intake Visit Reasons: 4 Months f/u Supervisor [employer] Required: No Accompanied by: Self / Same As Patient Allergies No Known Allergies [No Known Allergies*] Allergy (Verified 06/03/24 13:14) Medication List - Last Reconciled 06/03/24 by Edis Nath MD abiraterone 1,000 mg PO DAILY calcium carbonate-vitamin D3 600 mg-12.5 mcg (500 unit) (Calcium with Vit D3) caps PO dronedarone (Multaq) 400 mg PO BID 90 days leuprolide (Eligard) 7.5 mg subcut Q4W memantine 5 mg PO BID metoprolol succinate ER 50 mg PO DAILY 90 days prednisone 5 mg PO DAILY tamsulosin 0.8 mg (2 x 0.4 mg) PO BEDTIME 90 days Tobacco use date assessed: 06/03/24 Last assessed Fall Risk: 06/03/24 Dental Screening Dental Screen Date: 06/03/24 Did you have a dental visit in the last 12 months?: Yes Did you have a dental problem in the last 6 months where you did not have access to dental care?: No Was dental information given to patient?: Patient has dentist HPI 4 Months f/u HPI Details Patient comes in today for his follow up visit States that he feels okay He denies any headaches or dizziness Denies any chest pains, no shortness of breath No nausea/vomiting, no abdominal pain No change in bowel habits noted He had his follow-up labs done a few days ago - to discuss his results [facility] Medical History Vitamin D deficiency Prostate cancer metastatic to bone Thoracic aortic aneurysm Chronic diarrhea Obesity (BMI 30-39.9) Bladder outlet obstruction Iron deficiency anemia Paroxysmal atrial fibrillation Pure hypercholesterolemia Benign essential hypertension Surgical History Hx of colonoscopy History of cystoscopy History of hernia repair Family History Father Diabetes Kidney failure, acute Mother Diabetes Sister In good health Social History Household Members: None Housing: House Alcohol intake: never Patient Tobacco Use Status: Never used Tobacco e-Cigarette/Vaping Use: Never Used Second Hand Smoke Exposure: Yes service: No Current occupational status: employed Current occupation: [employer] Cognitive needs: No Hearing needs: Yes Vision needs: Yes Questionnaire PHQ-9 Over the last 2 weeks, how often have you been bothered by any of the following problems? 1. Little interest or pleasure in doing things: not at all 2. Feeling down, depressed, or hopeless: not at all 3. Trouble falling or staying asleep, or sleeping too much: not at all 4. Feeling tired or having little energy: not at all 5. Poor appetite or overeating: not at all 6. Feeling bad about yourself - or that you are a failure or have let yourself or your family down: not at all 7. Trouble concentrating on things, such as reading the newspaper or watching television: not at all 8. Moving or speaking so slowly that other people could have noticed. Or the opposite - being so fidgety or restless that you have been moving around a lot more than usual: not at all 9. Thoughts that you would be better off or of hurting yourself in some way: not at all Total score: 0 Depression Screening Interpretation: Negative Depression Screening Done: Yes 17381 - PHQ-9 Billing: Yes Source: Developed by Drs. Joaquín Persaud, Paulina Reis, Ferdinand Schafer and colleagues, with an educational ev from [employer]. Thrive Questionnaire Date Thrive assessed: 06/03/24 I am a: Patient What is your living situation today?: I have a steady place to live Within the past 12 months, did the food you bought not last and you didn't have the money to get more?: Never true Within the past 12 months, did you worry whether your food would run out before you got money to buy more?: Never true Do you have trouble paying for medicines?: No Do you have trouble getting transportation to medical appointments?: No Do you have trouble paying your heating and electricity bill?: No Do you have trouble taking care of your child, family member or friend?: No Do you have trouble with day-to-day activities such as bathing, preparing meals, shopping, managing finances, etc.?: No Are you currently unemployed and looking for a job?: No Are you interested in more education?: No Please select the resources that you would like help with: None Currently or been in a relationship where the following occur: No concerns reported THRIVE Score: 0 AUDIT C Alcohol Use Questionnaire (AUDIT-C) 1. How often do you have a drink containing alcohol?: Never 3. How often do you have six or more drinks on one occasion?: Never Total Score: 0 Score Reviewed/Action Taken: Yes ARTHUR-7 AMB Questionnaire ARTHUR-7 Date ARTHUR - 7 assessed: 06/03/24 Feeling nervous, anxious, or on edge: 0 = Not at all Not being able to stop or control worryin = Not at all Worrying too much about different things: 0 = Not at all Trouble relaxin = Not at all Being so restless that it is hard to sit still: 0 = Not at all Becoming easily annoyed or irritable: 0 = Not at all Feeling afraid as if something awful might happen: 0 = Not at all Total ARTHUR-7 score (0-4 normal; 5-9 mild; 10-14 moderate; 15-21 severe): 0 Source: Developed by Drs. Joaquín Persaud, Paulina Reis, Ferdinand Schafer and colleagues, with an educational ev from [employer]. Review of Systems Const Denies chills, Reports difficulty sleeping (wakes up often in the middle of the night to go to the bathroom), Reports fatigue, Denies fever(s) and Denies headache(s) ENT Denies dysphagia, Denies dizziness, Denies otalgia, Denies headache(s), Denies neck pain, Denies odynophagia and Denies sore throat Card Denies chest pain, Denies palpitations and Denies dyspnea Resp Denies chest congestion, Denies cough and Denies dyspnea GI Denies abdominal pain, Denies constipation, Denies dysphagia, Denies heartburn, Reports diarrhea (on and off), Denies nausea, Denies odynophagia and Denies vomiting Denies dysuria, Reports nocturia and Reports urinary frequency Musc Denies back pain, Reports arthralgias (mild left hip discomfort) and Denies neck pain Skin/Breast Denies rash Neuro Denies dizziness and Denies headache(s) Endo Reports fatigue and Denies palpitations Physical exam (Primary Care) Vital Signs: Last Vital Signs Pulse 57 06/03/24 12:47 BP 122/80 06/03/24 12:47 Pulse Ox 97 06/03/24 12:47 Oxygen Delivery Method Room Air 06/03/24 12:47 BMI result Body Mass Index 34.3 Tobacco/Smoking Status: Tobacco use Status Tobacco use date assessed 06/03/24 06/03/24 12:54 Patient Tobacco Use Status Never used Tobacco 06/03/24 12:54 e-Cigarette/Vaping Use Never Used 06/03/24 12:54 PHQ-9: PHQ-9 Score PHQ-9: Total score 0 06/03/24 12:54 Depression Screening Interpretation: Negative Thrive Assessment: Date of Thrive Assessment Date Thrive assessed 06/03/24 06/03/24 12:54 Currently or been in a relationship where the following occur: No concerns reported Const General: no acute distress and alert HENMT Ears: TM's normal bilaterally and EAC's normal Throat: Yes posterior oropharynx normal and Yes tonsils normal (no TP congestion noted) Neck Neck: Yes supple and No lymphadenopathy Thyroid: Thyroid normal Resp Auscultation: clear to auscultation bilaterally, no rales and no wheezes Cardio Rate: regular rate Rhythm: regular rhythm Heart sounds: no murmurs GI Palpation (GI): Soft to palpation and nontender Auscultation: normal bowel sounds General: Yes no CVA tenderness Back/Spine/Pelvis Back: no CVA tenderness Thoracic/Lumbar Spine: No lumbar spinal tenderness Skin Rashes: no rashes Extrem General: Yes no clubbing, cyanosis or edema Results Reviewed Results Reviewed: Laboratory Tests 01/24/24 05/29/24 05/29/24 14:36 12:45 12:50 WBC 7.0 Hgb 11.9 L Hct 34.1 L Plt Count 173 Sodium 136 Potassium 4.3 Creatinine 1.28 Estimated GFR 56 Fasting Glucose 90 Calcium 8.9 D AST 37 ALT 24 Triglycerides 202 H 143 Cholesterol 192 179 LDL Cholesterol, Calc 102 H 105 H HDL Cholesterol 50 46 Ur Specific [place] 1.020 Urine Protein 300 (3+) H Urine Glucose (UA) Negative Urine Blood Small (1+) H Urine Nitrite Negative Ur Leukocyte Esterase Negative Coding Level of Care Code Est Pt Level 4 (12056) Diagnoses Pure hypercholesterolemia E78.00 Benign essential hypertension I10 Paroxysmal atrial fibrillation I48.0 Thoracic aortic aneurysm without rupture, unspecified part I71.20 Thoracic aorta location: unspecified Presence of rupture: without rupture Ulcerative colitis without complications, unspecified location K51.90 Ulcerative colitis location: unspecified ulcerative colitis location Digestive disease complication type: without complication Iron deficiency anemia, unspecified iron deficiency anemia type D50.9 Iron deficiency anemia type: unspecified iron deficiency Vitamin D deficiency E55.9 Prostate cancer metastatic to bone C61; C79.51 Obesity (BMI 30-39.9) E66.9 Additional Codes PHQ-9 - 18236 - PHQ-9 Billing: Yes ([id number]) Assessment & Plan Assessment & Plan (1) Pure hypercholesterolemia: Code(s): E78.00 - Pure hypercholesterolemia, unspecified Category: Medical Plan: Results of his labs done a few days ago reviewed and discussed with patient - patient's LDL cholesterol level is at 105 mg/dl Reinforced low-cholesterol diet - goal is LDL cholesterol of less than 100 mg/dL, per cardiology Will have patient recheck his labs and fasting lipids in 4 months for follow-up (2) Benign essential hypertension: Code(s): I10 - Essential (primary) hypertension Category: Medical Plan: Reinforced low sodium diet - goal is systolic BP of at least 120 to 130 mm or less Continue Metoprolol ER 50 mg QD (3) Paroxysmal atrial fibrillation: Comment: S/P synchronized cardioversion Code(s): I48.0 - Paroxysmal atrial fibrillation Category: Medical Plan: Patient currently remains in sinus rhythm and is doing well with rhythm control approach Continue Multaq 400 mg BID and Metoprolol ER 50 mg QD His CHADsVAsc score is at 1 and patient prefers not to take any anticoagulant at this time Follow-up with cardiology as scheduled - he sees cardiology just once a year now (4) Thoracic aortic aneurysm: Code(s): I71.2 - Thoracic aortic aneurysm, without rupture Category: Medical Qualifiers: Thoracic aorta location: unspecified Presence of rupture: without rupture Qualified Code(s): I71.20 - Thoracic aortic aneurysm, without rupture, unspecified Plan: Repeat echocardiogram done in 04/2023 showed that his LV appears dilated (LVEDD 6.6 cm) - it was previously at normal size. The left ventricular systolic function is normal.? The calculated ejection fraction is 64% by biplane method. There is mild aortic valve regurgitation, mild mitral annular calcification and mild dilatation of the ascending aorta measuring 4.1 cm, which is mostly unchanged from last year Follow up with cardiology as scheduled for continuing surveillance (5) Ulcerative colitis: Comment: 59-year-old male newly diagnosis prostate cancer, after colonoscopy with pathology showing-moderately active colitis- Patient is overwhelmed, certainly understandable given his multiple new diagnoses- Consulted with Dr. David (as requested previously) to assist in beginning/managing care in this complex patient Will get T spot, hep B status, he had stool calprotectin-04/30-august repeat Code(s): K51.90 - Ulcerative colitis, unspecified, without complications Category: Medical Qualifiers: Ulcerative colitis location: unspecified ulcerative colitis location Digestive disease complication type: without complication Qualified Code(s): K51.90 - Ulcerative colitis, unspecified, without complications Plan: Patient states that his colitis is well-controlled on his current Rx and he's had no recent flare ups Continue Mesalamine ER 1.5 gm QD and Mesalamine 4 gm Q HS Follow up with GI as scheduled (6) Iron deficiency anemia: Code(s): D50.9 - Iron deficiency anemia, unspecified Category: Medical Qualifiers: Iron deficiency anemia type: unspecified iron deficiency Qualified Code(s): D50.9 - Iron deficiency anemia, unspecified Plan: Stable; continue Feosol 65 mg QD Will continue to monitor his CBC regularly (7) Vitamin D deficiency: Code(s): E55.9 - Vitamin D deficiency, unspecified Category: Medical Plan: Continue OTC Vitamin D3 2000 units QD (8) Prostate cancer metastatic to bone: Comment: staging is T1c, N0, N1B Stuart 4+4 oligometastatic prostate cancer with tumor in bilateral pubic rami and the left 7th rib Code(s): C61 - Malignant neoplasm of prostate; C79.51 - Secondary malignant neoplasm of bone Category: Medical Plan: Continue Zytiga 1000 mg QD, Prednisone 5 mg QD (started on 09/17/2020) and Eligard 45 mg Q 6 months Continue Tamsulosin 0.4 mg 2 tablets Q HS Patient received adjuvant radiation therapy from 01/04/2021 to 04/27/2021 with SBRT to right iliac bone; completed left ilium RT on 05/17/2021 and radiation to i nvolved left 9th rib PET scan done on 02/11/2022 reportedly came out okay; PSA level continues to be below detectable range Follow up with urology, oncology and radiation oncology as scheduled (9) Obesity (BMI 30-39.9): Code(s): E66.9 - Obesity, unspecified Category: Medical Plan: Reinforced diet/exercise as tolerated/lose weight Plan Follow-up in 4 months Orders: Orders Complete Blood Count Auto Diff 4 Months D64.9 - Anemia, unspecified Comprehensive Vestal. Panel Fast 4 Months E78.00 - Pure hypercholesterolemia, unspecified TSH reflex Free T4 4 Months E78.00 - Pure hypercholesterolemia, unspecified UA CC w/rflx Micro + Cult 4 Months R30.0 - Dysuria Lipid Panel 4 Months E78.00 - Pure hypercholesterolemia, unspecified Vitamin D 25-OH Total 4 Months E55.9 - Vitamin D deficiency, unspecified Vitamin B12 and Folate 4 Months E53.8 - Deficiency of other specified B group vitamins Hemoglobin A1c 4 Months R73.01 - Impaired fasting glucose
--- OUTSIDE RECORDS SUMMARY | 2024-06-03 14:25 | XMS_ITS | Clinical Summary ---
Author Organization [facility] Address [phone] [facility] [place] [address] Care Team Providers Care Pressurised Container Filler Name Role Phone Edis Nath MD Primary Care Provider [phone] Self-Referred, Patient Unavailable Unavailab Cammie Anderson MD Unavailable [phone] Gonzalo Sotomayor MD, MPH Unavailable [phone] Amilcar Fan MD Unavailable Nadia Sharp MD [...] Medical Devices Not on file Care Teams Pressurised Container Filler Relationship Specialty Start Date End Date Edis Nath MD [address] [place] [phone] PCP - General Internal Medicine 10/13/20 Self-Referred, Patient 10/13/20 Cammie Breen MD [address] [place] [address] [email or web address] Medical Oncology 10/13/20 Gonzalo Sotomayor MD, MPH [address] [place] [id number] [email or web address] Radiation Oncology 10/26/20 Amilcar Fan MD [address] [place] [phone] Internal Medicine 11/19/20 Nadia Sharp MD [address] [place] [phone] [email or web address] Radiation Oncology 12/07/21 Ashley Lilly MD [address] [place] [address] [email or web address] Radiation Oncology 12/21/21 Additional Source Comments The information contained in this document represents components of the legal health record. It is not the complete legal health record.[facility]
--- OUTSIDE RECORDS SUMMARY | 2024-06-03 14:25 | XMS_ITS | Encounter Summary ---
Author Organization [facility] Address [phone] [place] [address] Care Team Providers Care Electrolysis Needle Operator Name Role Phone Edis Nath MD Primary Care Provider [phone] Self-Referred, Patient Unavailable Unavailab Cammie Anderson MD Unavailable Gonzalo Sotomayor MD, MPH Unavailable [phone] Amilcar Fan MD Unavailable Nadia Sharp MD Unavailable Ashley Lilly MD Unavailable Reason for Referral * MRI/CAT Scan - Closed Specialty Diagnoses / Procedures Referred By Marty hanson Referred To Contact Radiology Diagnoses Secondary malignant neoplasm of bone and bone marrow Procedures CT Chest Nadia Sharp MD [address] [place] [address] Email: [email or web address] Referral ID Status Reason Start Date Expiration Date Visits Re quested Visits Authorized [id number] Closed 12/23/2021 02/21/2022 1 1 Reason for Visit * MRI/CAT Scan - Closed Specialty Diagnoses / Procedures Referred By Marty hanson Referred To Contact Radiology Diagnoses Secondary malignant neoplasm of bone and bone marrow Procedures CT Chest Nadia Sharp MD [address] [place] [address] Email: [email or web address] Referral ID Status Reason Start Date Expiration Date Visits Re quested Visits Authorized [id number] Closed 12/23/2021 02/21/2022 1 1 Encounter Details Date Type Department Care Team (Late st Contact Info) Description 12/31/2021 1:30 PM EDT Hospital Encounter [facility], Radiology Department Nadia Sharp MD [address] [place] [address] JUAN [email or web address] Social History Tobacco Use Types Packs/Day [...] marrow documented in this encounter Care Teams Electrolysis Needle Operator Relationship Specialty Start Date End Date Edis Nath MD [address] [place] [address] [place] [address] [place] [address] PCP - General Internal Medicine 10/13/20 Self-Referred, Patient 10/13/20 Cammie Breen MD [address] [place] [address] [email or web address] Medical Oncology 10/13/20 Gonzalo Sotomayor MD, MPH [address] [place] [address], [facility] [place] [address] GALINA@[email or web address] Radiation Oncology 10/26/20 Amilcar Fan MD [address] [place] [address] Internal Medicine 11/19/20 Nadia Sharp MD [address] [place] [address] BRIANNE@[email or web address] Radiation Oncology 12/07/[address] [facility] [place] [address] [email or web address] Radiation Oncology 12/21/21 documented as of this encounter Additional Source Comments The information contained in this document represents components of the legal health record. It is not the complete legal health record.[facility]
--- OUTSIDE RECORDS SUMMARY | 2024-06-03 14:25 | XMS_ITS | Encounter Summary ---
Author Organization [facility] Address [phone] [facility] [place] [address] Care Team Providers Care Automobile Rental Clerk Name Role Phone Edis Nath MD Primary Care Provider [phone] Self-Referred, Patient Unavailable Unavailab Cammie Anderson MD Unavailable [phone] Gonzalo Sotomayor MD, MPH Unavailable [phone] Amilcar Fan MD Unavailable Nadia Sharp MD Unavailable [phone] Ashley Lilly MD Unavailable Encounter Details Date Type Department Care Team (Late st Contact Info) Description 12/29/2021 Procedure Pass [facility], Radiology Department Social History Tobacco Use [...] on filedocumented in this encounter Care Teams Automobile Rental Clerk Relationship Specialty Start Date End Date Edis Nath MD [address] [place] [address] [address] [place] [address] PCP - General Internal Medicine 10/13/20 Self-Referred, Patient 10/13/20 Cammie Breen MD [address] [place] [address] [email or web address] Medical Oncology 10/13/20 Gonzalo Sotomayor MD, MPH [address] [place] [address], [address] [address] GALINA@[email or web address] Radiation Oncology 10/26/20 Amilcar Fan MD [address] [place] [address] Internal Medicine 11/19/20 Nadia Sharp MD [address] [place] [address] BRIANNE@[email or web address] Radiation Oncology 12/07/[address] [facility] [place] [address] [email or web address] Radiation Oncology 12/21/21 documented as of this encounter Additional Source Comments The information contained in this document represents components of the legal health record. It is not the complete legal health record.[facility]
== END 2024-06-03 13:33 | disposition home or self-care (01) ==
PROVIDERS: PCP Internal Medicine; Visit Provider Internal Medicine
DX: I48.0 Paroxysmal atrial fibrillation (principal); I71.20 Thoracic aortic aneurysm, without rupture, unspecified; K51.90 Ulcerative colitis, unspecified, without complications; C61 Malignant neoplasm of prostate; E66.9 Obesity, unspecified; Z68.34 Body mass index [BMI] 34.0-34.9, adult; C79.51 Secondary malignant neoplasm of bone; I10 Essential (primary) hypertension; E78.00 Pure hypercholesterolemia, unspecified; D50.9 Iron deficiency anemia, unspecified; E55.9 Vitamin D deficiency, unspecified

== ENCOUNTER → 2024-06-03 12:44 | Outpatient (BNVA) | payer OTHER, SELFPAY | PROVIDERS: PCP Internal Medicine; Visit Provider Internal Medicine | DX: E78.00 Pure hypercholesterolemia, unspecified (principal); I10 Essential (primary) hypertension; I48.0 Paroxysmal atrial fibrillation; I71.20 Thoracic aortic aneurysm, without rupture, unspecified; K51.90 Ulcerative colitis, unspecified, without complications; D50.9 Iron deficiency anemia, unspecified; E55.9 Vitamin D deficiency, unspecified; C61 Malignant neoplasm of prostate; C79.51 Secondary malignant neoplasm of bone; E66.9 Obesity, unspecified; Z68.34 Body mass index [BMI] 34.0-34.9, adult; Z79.899 Other long term (current) drug therapy | CPT/HCPCS: 96127 ==

== ENCOUNTER 2024-06-13 14:47 | Outpatient (AMB) | payer OTHER, SELFPAY ==
[2024-06-13 15:21] VITALS: BP 118/74; PULSE 52; BMI 33.9
--- NOTE | 2024-06-13 15:21 | A.OFFVIS_ITS ---
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 Been doing well. He has been eating better and gaining some weight. He has no cardiac symptoms at current point time. Continues to work. He said he is currently on hormonal therapy for prostate cancer. No prolonged palpitation irregular heartbeat. No lightheadedness, syncope. Taking all his medications. No exertional chest pain. No shortness of breath, orthopnea, PND. No lightheadedness, syncope. [facility] Medical History Vitamin D deficiency Prostate cancer metastatic to bone Thoracic aortic aneurysm Chronic diarrhea Obesity (BMI 30-39.9) Bladder outlet obstruction Iron deficiency anemia Paroxysmal atrial fibrillation Pure hypercholesterolemia Benign essential hypertension Surgical History Hx of colonoscopy History of cystoscopy History of hernia repair Family History Father Diabetes Kidney failure, acute Mother Diabetes Sister In good health Social History Household Members: None Housing: House Alcohol intake: never Patient Tobacco Use Status: Never used Tobacco e-Cigarette/Vaping Use: Never Used Second Hand Smoke Exposure: Yes service: No Current occupational status: employed Current occupation: [employer] Cognitive needs: No Hearing needs: Yes Vision needs: Yes Review of Systems Const Denies chills, Denies fatigue, Denies fever(s), Denies frequent falls, Denies weakness, Denies weight gain and Denies weight loss ENT Denies dizziness Card Denies chest pain, Denies leg edema, Denies lightheadedness, Denies palpitations, Denies dyspnea, Denies dyspnea on exertion, Denies orthopnea and Denies other (loss of consciousness) Resp Denies cough, Denies dyspnea and Denies dyspnea on exertion GI Denies hematochezia and Denies change in stool character Musc Denies abnormal gait, Denies muscle weakness, Denies numbness, Denies radiating pain into limb and Denies tingling Neuro Denies abnormal gait, Denies dizziness, Denies frequent falls, Denies numbness, Denies tingling and Denies weakness Endo Denies fatigue and Denies palpitations Physical Exam Vital Signs: Last Vital Signs Pulse 52 06/13/24 15:21 BP 118/74 06/13/24 15:21 BMI result Body Mass Index 33.9 Const General: cooperative, comfortable, alert and awake Nutritional Appearance: obese Orientation/consciousness: patient oriented x3 Limitations: no limitations HEENT Head: Yes normocephalic and Yes atraumatic Neck Neck: Yes trachea midline and Yes no JVD Chest Chest palpation & inspection: normal inspection of the chest Resp Effort & Inspection: normal respiratory effort Auscultation: clear to auscultation bilaterally Cardio Jugular venous distension: no JVD Palpation: normal PMI Rate: regular rate Rhythm: regular rhythm Heart sounds: S1 normal heart sound present and S2 normal heart sound present GI Auscultation: normal bowel sounds Skin General skin exam: no rashes or lesions noted Neuro General: patient oriented x3 and no focal motor deficits Extrem General: Yes no clubbing, cyanosis or edema Psych Appearance: grossly normal Office Procedures EKG Details: EKG shows sinus bradycardia with suggestion of LVH with repolarization abnormality [id number]-[id number], Complete Assessment & Plan Assessment & Plan (1) Paroxysmal atrial fibrillation: Comment: S/P synchronized cardioversion Code(s): I48.0 - Paroxysmal atrial fibrillation Category: Medical Plan: Highly symptomatic paroxysmal atrial fibrillation has remained suppressed on current therapy with Multaq. Has done extremely well with that. Continue to pursue rhythm control approach and continue Multaq therapy. Blood pressure is well optimized. No evidence of diabetes there is no indication for blood thinner therapy at this point time. Avoidance of stimulants was discussed advised to call me with new symptoms. Follow-up echocardiogram in 1 year's time. (2) Thoracic aortic aneurysm: Code(s): I71.2 - Thoracic aortic aneurysm, without rupture Category: Medical Qualifiers: Thoracic aorta location: unspecified Presence of rupture: without rupture Qualified Code(s): I71.20 - Thoracic aortic aneurysm, without rupture, unspecified Plan: Mild thoracic aortic aneurysm without any new symptoms. Continue metoprolol therapy. Blood pressure is currently well optimized. Advised to avoid sudden strenuous isometric exercise. No interventions required. Will follow up in the clinic every 3 months for EKG and in 1 year with me. Orders: Orders CA echo transthoracic complete 1 Year I71.20 - Thoracic aortic aneurysm, without rupture, unspecified Coding Level of Care Code Est Pt Level 4 (57427) Complex EM visit Add On G2211 Diagnoses Paroxysmal atrial fibrillation I48.0 Thoracic aortic aneurysm without rupture, unspecified part I71.20 Thoracic aorta location: unspecified Presence of rupture: without rupture CPT Codes EKG - CPT: 34087-Pestzmzxxyixryymn, Complete ([id number])
--- OUTSIDE RECORDS SUMMARY | 2024-06-13 18:15 | XMS_ITS | Encounter Summary ---
Author Organization [facility] Address [address] [place] [address] Phone Care Team Providers Care Direct Support Staff Member Name Role Phone Edis Nath MD Primary Care Provider [phone] Self-Referred, Patient Unavailable Unavailab Cammie Anderson MD Unavailable [phone] Gonzalo Sotomayor MD, MPH Unavailable [phone] Amilcar Fan MD Unavailable [phone] Nadia Sharp MD Unavailable [phone] Ashley Lilly MD Unavailable Encounter Details Date Type Department Care Team (Late st Contact Info) Description 12/29/2021 Procedure Pass [facility], Radiology Department Social History Tobacco Use [...] on filedocumented in this encounter Care Teams Direct Support Staff Member Relationship Specialty Start Date End Date Edis Nath MD [address] [place] [address] [address] [place] [address] PCP - General Internal Medicine 10/13/20 Self-Referred, Patient 10/13/20 Cammie Breen MD [address] [place] [address] [email or web address] Medical Oncology 10/13/20 Gonzalo Sotomayor MD, MPH [address] [place] [address], [facility]- [address] [address] GALINA@[facility] Radiation Oncology 10/26/20 Amilcar Fan MD [address] [place] [address] Internal Medicine 11/19/20 Nadia Sharp MD [address] [place] [address] BRIANNE@[facility] Radiation Oncology 12/07/21 Ashley Lilly MD [facility] [place] [address] [email or web address] Radiation Oncology 12/21/21 documented as of this encounter Additional Source Comments The information contained in this document represents components of the legal health record. It is not the complete legal health record.[facility]
--- OUTSIDE RECORDS SUMMARY | 2024-06-13 18:15 | XMS_ITS | Encounter Summary ---
Author Organization [facility] Address [address] [place] [address] Phone Care Team Providers Care Child Development Specialist Name Role Phone Edis Nath MD Primary Care Provider [phone] Self-Referred, Patient Unavailable Unavailab Cammie Anderson MD Unavailable [phone] Gonzalo Sotomayor MD, MPH Unavailable [phone] Amilcar Fan MD Unavailable [phone] Nadia Sharp MD Unavailable [phone] Ashley Lilly MD Unavailable Reason for Referral * MRI/CAT Scan - Closed Specialty Diagnoses / Procedures Referred By Marty hanson Referred To Contact Radiology Diagnoses Secondary malignant neoplasm of bone and bone marrow Procedures CT Chest Nadia Sharp MD [address] [place] [address] Email: [email or web address] Referral ID Status Reason Start Date Expiration Date Visits Re quested Visits Authorized [id number] Closed 12/23/2021 02/21/2022 1 1 Reason for Visit * MRI/CAT Scan - Closed Specialty Diagnoses / Procedures Referred By Marty hanson Referred To Contact Radiology Diagnoses Secondary malignant neoplasm of bone and bone marrow Procedures CT Chest Nadia Sharp MD [address] [place] [phone] Email: [email or web address] Referral ID Status Reason Start Date Expiration Date Visits Re quested Visits Authorized [id number] Closed 12/23/2021 02/21/2022 1 1 Encounter Details Date Type Department Care Team (Late st Contact Info) Description 12/31/2021 1:30 PM EDT Hospital Encounter [facility], Radiology Department Nadia Sharp MD [address] [place] [address] [email or web address] Social History Tobacco Use Types Packs/Day [...] marrow documented in this encounter Care Teams Child Development Specialist Relationship Specialty Start Date End Date Edis Nath MD [address] [place] [address] [place] [address] [place] [address] PCP - General Internal Medicine 10/13/20 Self-Referred, Patient 10/13/20 Cammie Breen MD [address] [place] [address] [email or web address] Medical Oncology 10/13/20 Gonzalo Sotomayor MD, MPH [address] [place] [address], [facility]- [address] [place] [address] GALINA@[email or web address] Radiation Oncology 10/26/20 Amilcar Fan MD [address] [place] [address] Internal Medicine 11/19/20 Nadia Sharp MD [address] [place] [address] BRIANNE@[email or web address] Radiation Oncology 12/07/21 Ashley Lilly MD [facility] [place] [address] [email or web address] Radiation Oncology 12/21/21 documented as of this encounter Additional Source Comments The information contained in this document represents components of the legal health record. It is not the complete legal health record.[facility]
== END 2024-06-13 16:06 | disposition home or self-care (01) ==
PROVIDERS: PCP Internal Medicine; Visit Provider Internal Medicine Cardiovascular Disease
DX: I48.0 Paroxysmal atrial fibrillation (principal); I71.20 Thoracic aortic aneurysm, without rupture, unspecified
CPT/HCPCS: 93010; 99214

== ENCOUNTER → 2024-06-13 14:47 | Outpatient (BNVA) | payer OTHER, SELFPAY | PROVIDERS: PCP Internal Medicine; Visit Provider Internal Medicine Cardiovascular Disease | DX: I48.0 Paroxysmal atrial fibrillation (principal); I71.20 Thoracic aortic aneurysm, without rupture, unspecified; Z79.899 Other long term (current) drug therapy | CPT/HCPCS: 93005 ==

== ENCOUNTER 2024-09-10 09:50 | Outpatient (AMB) | payer OTHER, SELFPAY ==
--- NOTE | 2024-09-10 09:53 | AM.OFFVISNUR ---
Intake Visit Reasons: EKG Allergies No Known Allergies [No Known Allergies*] Allergy (Verified 06/03/24 13:14) Nursing Note pt is here for nurse visit with ekg pt is taking Dronedarone 400 mg PO BID pt has no complaints, doing well ekg reviewed by Dr Muller Office Procedures EKG [id number]-Yaxahipkwpmdzzumt, Complete Coding CPT Codes EKG - CPT: 43730-Dkcxfsgldedirylno, Complete ([id number])
== END 2024-09-10 10:05 | disposition home or self-care (01) ==
LOC: HO.HCS 09:50
PROVIDERS: PCP Internal Medicine; Visit Provider Internal Medicine Cardiovascular Disease
DX: I49.1 Atrial premature depolarization (principal); R00.1 Bradycardia, unspecified
CPT/HCPCS: 93010

== ENCOUNTER → 2024-09-10 09:50 | Outpatient (BNVA) | payer OTHER, SELFPAY | PROVIDERS: PCP Internal Medicine; Visit Provider Internal Medicine Cardiovascular Disease | DX: I49.1 Atrial premature depolarization (principal); R00.1 Bradycardia, unspecified; R94.31 Abnormal electrocardiogram [ECG] [EKG] | CPT/HCPCS: 93005 ==

== ENCOUNTER 2024-10-07 12:40 | Outpatient (REF) | payer OTHER, SELFPAY ==
[2024-10-07 12:57] LABS: MANUAL DIFF FLAG NO
[2024-10-07 13:31] LABS: Appearance Urine Clear; Color Urine Yellow; Glucose Urine UA Negative (Negative); Leukocyte Esterase Urine Negative (Negative); Nitrite Urine Negative (Negative); Specific Gravity - Urine 1.015 (1.005-1.025); UMIC TRIGGER UACC YES; Urine Blood Trace (Negative); Urine Ketones Negative (Negative); Urine Protein 300 (3+) mg/dL (Neg-Trace)
[2024-10-07 13:32] LABS: Basophils Percent Auto 0.2 % (0-2); Eosinophils Absolute Auto 0.1 X10*3/uL (0.0-0.4); Eosinophils Percent Auto 1.5 % (0-4); Hematocrit 32.7 % (42.0-52.0); Hemoglobin 11.6 g/dl (14.0-18.0); Imm Gran Abs Auto 0.03 X10*3/uL (0.00-0.03); Imm Gran Pct Auto 0.5 % (0.0-0.4); Lymphocytes Absolute Auto 0.9 X10*3/uL (1.2-4.9); Lymphocytes Percent Auto 14.3 % (20-40); Mean Corpuscular HGB Conc 35.5 g/dl (31.0-36.0); Mean Corpuscular Hemoglobin 31.7 pg (27.0-33.0); Mean Corpuscular Volume 89.3 fL (80.0-98.0); Mean Platelet Volume 9.7 fL (9.4-12.4); Monocytes Absolute Auto 0.5 X10*3/uL (0.1-1.2); Monocytes Percent Auto 7.2 % (2-11); Neutrophils Percent Auto 76.3 % (45-73); Platelet Count 184 X10*3/uL (160-400); Red Blood Count 3.66 X10*6/uL (4.60-5.80); Red Cell Distribution Width 14.3 % (11.0-16.0); White Blood Count 6.5 X10*3/uL (4.8-10.8)
[2024-10-07 13:34] LABS: Bacteria Urine None Seen (None Seen); Hyaline Casts Urine 0-2 /LPF (0-2); RBC Urine 0-2 /HPF (0-2); Squamous Epithelial Cell Urine 0-2 /HPF (0-2); WBC Urine 0-5 /HPF (0-5)
[2024-10-07 13:42] LABS: Estimated Average Glucose 97 mg/dL
[2024-10-07 14:06] LABS: Alanine Aminotransferase 19 U/L (0-40); Albumin Level 3.3 g/dL (3.5-5.0); Alkaline Phosphatase 77 U/L (39-117); Anion Gap 10 (12-20); Aspartate Amino Transferase 25 U/L (5-37); Bilirubin Total 0.6 mg/dL (0.0-1.0); Blood Urea Nitrogen 19 mg/dL (9-16); Carbon Dioxide 23 mmol/L (22-29); Chloride 108 mmol/L (96-108); Cholesterol 182 mg/dL (<200); Estimated Glomerular Filt Rate 52; Glucose Fasting 97 mg/dL (60-99); HDL Cholesterol 46 mg/dL (>40); LDL Cholesterol Calculated 107 mg/dL (<100); Potassium 4.3 mmol/L (3.3-5.1); Sodium 137 mmol/L (135-145); Total Protein 5.9 g/dL (6.5-8.0); Triglycerides 146 mg/dL (<150)
[2024-10-07 14:33] LABS: TSH reflex Free T4 2.39 uIU/mL (0.32-4.0); Vitamin D 25-OH Total 30.3 ng/mL (>30)
[2024-10-07 14:43] LABS: Folate 10.4 ng/mL (> or = 4.0); Vitamin B12 339 pg/mL (200-900)
== END 2024-10-07 12:41 | disposition home or self-care (01) ==
LOC: HO.LAB 12:40
PROVIDERS: PCP Internal Medicine; Visit Provider Internal Medicine
DX: D64.9 Anemia, unspecified (principal); E55.9 Vitamin D deficiency, unspecified; E78.00 Pure hypercholesterolemia, unspecified; E53.8 Deficiency of other specified B group vitamins; R73.01 Impaired fasting glucose
CPT/HCPCS: 36415; 80053; 80061; 81001; 82306; 82607; 82746; 83036; 84443; 85025

== ENCOUNTER 2024-10-08 14:36 | Outpatient (AMB) | payer OTHER, SELFPAY ==
--- NOTE | 2024-10-08 14:37 | A.OFFPC_ITS ---
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 Accompanied by: Self / Same As Patient Allergies No Known Allergies (No Known Allergies*) Allergy (Verified 10/08/24 15:02) Medication List - Last Reconciled 10/08/24 by Edis Nath MD abiraterone 1,000 mg PO DAILY calcium carbonate-vitamin D3 600 mg-12.5 mcg (500 unit) (Calcium with Vit D3) caps PO dronedarone (Multaq) 400 mg PO BID 90 days leuprolide (Eligard) 7.5 mg subcut Q4W memantine 5 mg PO BID metoprolol succinate ER 50 mg PO DAILY 90 days prednisone 5 mg PO DAILY tamsulosin 0.8 mg (2 x 0.4 mg) PO BEDTIME 90 days Tobacco use date assessed: 10/08/24 Fall risk assessment: No Falls in past year Last assessed Fall Risk: 10/08/24 Dental Screening Dental Screen Date: 10/08/24 Did you have a dental visit in the last 12 months?: Yes Did you have a dental problem in the last 6 months where you did not have access to dental care?: No Was dental information given to patient?: Patient has dentist HPI 4 months HPI Details Patient comes in today for his follow up visit States that he feels okay He denies any headaches or dizziness Denies any chest pains, no shortness of breath No nausea/vomiting, no abdominal pain No change in bowel habits noted He had his follow-up labs done yesterday - to discuss his results [facility] Medical History Vitamin D deficiency Prostate cancer metastatic to bone Thoracic aortic aneurysm Chronic diarrhea Obesity (BMI 30-39.9) Bladder outlet obstruction Iron deficiency anemia Paroxysmal atrial fibrillation Pure hypercholesterolemia Benign essential hypertension Surgical History Hx of colonoscopy History of cystoscopy History of hernia repair Family History Father Diabetes Kidney failure, acute Mother Diabetes Sister In good health Social History Household Members: None Housing: House Alcohol intake: never Patient Tobacco Use Status: Never used Tobacco e-Cigarette/Vaping Use: Never Used Second Hand Smoke Exposure: Yes service: No Current occupational status: employed Current occupation: [employer] Cognitive needs: No Hearing needs: Yes Vision needs: Yes Questionnaire PHQ-9 Over the last 2 weeks, how often have you been bothered by any of the following problems? 1. Little interest or pleasure in doing things: not at all 2. Feeling down, depressed, or hopeless: not at all 3. Trouble falling or staying asleep, or sleeping too much: not at all 4. Feeling tired or having little energy: not at all 5. Poor appetite or overeating: not at all 6. Feeling bad about yourself - or that you are a failure or have let yourself or your family down: not at all 7. Trouble concentrating on things, such as reading the newspaper or watching television: not at all 8. Moving or speaking so slowly that other people could have noticed. Or the opposite - being so fidgety or restless that you have been moving around a lot more than usual: not at all 9. Thoughts that you would be better off or of hurting yourself in some way: not at all Total score: 0 Depression Screening Interpretation: Negative Depression Screening Done: Yes 18524 - PHQ-9 Billing: Yes Source: Developed by Drs. Joaquín Persaud, Paulina Reis, Ferdinand Schafer and colleagues, with an educational ev from [employer]. Thrive Questionnaire Date Thrive assessed: 10/08/24 I am a: Patient What is your living situation today?: I have a steady place to live Within the past 12 months, did the food you bought not last and you didn't have the money to get more?: Never true Within the past 12 months, did you worry whether your food would run out before you got money to buy more?: Never true Do you have trouble paying for medicines?: No Do you have trouble getting transportation to medical appointments?: No Do you have trouble paying your heating and electricity bill?: No Do you have trouble taking care of your child, family member or friend?: No Do you have trouble with day-to-day activities such as bathing, preparing meals, shopping, managing finances, etc.?: No Are you currently unemployed and looking for a job?: No Are you interested in more education?: No Please select the resources that you would like help with: None Currently or been in a relationship where the following occur: No concerns reported THRIVE Score: 0 AUDIT C Alcohol Use Questionnaire (AUDIT-C) 1. How often do you have a drink containing alcohol?: Never 3. How often do you have six or more drinks on one occasion?: Never Total Score: 0 Score Reviewed/Action Taken: Yes ARTHUR-7 AMB Questionnaire ARTHUR-7 Date ARTHUR - 7 assessed: 10/08/24 Feeling nervous, anxious, or on edge: 0 = Not at all Not being able to stop or control worryin = Not at all Worrying too much about different things: 0 = Not at all Trouble relaxin = Not at all Being so restless that it is hard to sit still: 0 = Not at all Becoming easily annoyed or irritable: 0 = Not at all Feeling afraid as if something awful might happen: 0 = Not at all Total ARTHUR-7 score (0-4 normal; 5-9 mild; 10-14 moderate; 15-21 severe): 0 Source: Developed by Drs. Joaquín Persaud, Paulina Reis, Ferdinand Schafer and colleagues, with an educational ev from [employer]. Review of Systems Const Denies chills, Reports difficulty sleeping (wakes up often in the middle of the night to go to the bathroom), Reports fatigue, Denies fever(s) and Denies headache(s) ENT Denies dysphagia, Denies dizziness, Denies otalgia, Denies headache(s), Denies neck pain, Denies odynophagia and Denies sore throat Card Denies chest pain, Denies palpitations and Denies dyspnea Resp Denies chest congestion, Denies cough and Denies dyspnea GI Denies abdominal pain, Denies constipation, Denies dysphagia, Denies heartburn, Reports diarrhea (on and off), Denies nausea, Denies odynophagia and Denies vomiting Denies dysuria, Reports nocturia and Reports urinary frequency Musc Denies back pain, Reports arthralgias (mild left hip discomfort) and Denies neck pain Skin/Breast Denies rash Neuro Denies dizziness and Denies headache(s) Endo Reports fatigue and Denies palpitations Physical exam (Primary Care) Vital Signs: Last Vital Signs Pulse 62 10/08/24 14:41 BP 118/64 10/08/24 14:41 Pulse Ox 94 10/08/24 14:41 Oxygen Delivery Method Room Air 10/08/24 14:41 BMI result Body Mass Index 34.6 Tobacco/Smoking Status: Tobacco use Status Tobacco use date assessed 10/08/24 10/08/24 14:49 Patient Tobacco Use Status Never used Tobacco 10/08/24 14:49 e-Cigarette/Vaping Use Never Used 10/08/24 14:49 PHQ-9: PHQ-9 Score PHQ-9: Total score 0 10/08/24 15:07 Depression Screening Interpretation: Negative Thrive Assessment: Date of Thrive Assessment Date Thrive assessed 10/08/24 10/08/24 14:49 Currently or been in a relationship where the following occur: No concerns reported Const General: no acute distress and alert HENMT Ears: TM's normal bilaterally and EAC's normal Throat: Yes posterior oropharynx normal and Yes tonsils normal (no TP congestion noted) Neck Neck: Yes supple and No lymphadenopathy Thyroid: Thyroid normal Resp Auscultation: clear to auscultation bilaterally, no rales and no wheezes Cardio Rate: regular rate Rhythm: regular rhythm Heart sounds: no murmurs GI Palpation (GI): Soft to palpation and nontender Auscultation: normal bowel sounds General: Yes no CVA tenderness Back/Spine/Pelvis Back: no CVA tenderness Thoracic/Lumbar Spine: No lumbar spinal tenderness Skin Rashes: no rashes Extrem General: Yes no clubbing, cyanosis or edema Results Reviewed Results Reviewed: Laboratory Tests 10/07/24 12:55 WBC 6.5 Hgb 11.6 L Hct 32.7 L Plt Count 184 Sodium 137 Potassium 4.3 Creatinine 1.38 Estimated GFR 52 Fasting Glucose 97 Hemoglobin A1c % 5.0 Calcium 9.0 AST 25 ALT 19 Triglycerides 146 Cholesterol 182 LDL Cholesterol, Calc 107 H HDL Cholesterol 46 Vitamin B12 339 25-OH Vitamin D Total 30.3 TSH 2.39 Ur Specific [place] 1.015 Urine Protein 300 (3+) H Urine Glucose (UA) Negative Urine Blood Trace H Urine Nitrite Negative Ur Leukocyte Esterase Negative Coding Level of Care Code Est Pt Level 4 (43690) Diagnoses Pure hypercholesterolemia E78.00 Benign essential hypertension I10 Paroxysmal atrial fibrillation I48.0 Thoracic aortic aneurysm without rupture, unspecified part I71.20 Presence of rupture: without rupture Thoracic aorta location: unspecified Ulcerative colitis without complications, unspecified location K51.90 Digestive disease complication type: without complication Ulcerative colitis location: unspecified ulcerative colitis location Iron deficiency anemia, unspecified iron deficiency anemia type D50.9 Iron deficiency anemia type: unspecified iron deficiency Vitamin D deficiency E55.9 Prostate cancer metastatic to bone C61; C79.51 Obesity (BMI 30-39.9) E66.9 Additional Codes PHQ-9 - 59730 - PHQ-9 Billing: Yes ([id number]) Assessment & Plan Assessment & Plan (1) Pure hypercholesterolemia: Code(s): E78.00 - Pure hypercholesterolemia, unspecified Category: Medical Plan: Results of his labs done yesterday reviewed and discussed with patient - alexandria hanson's LDL cholesterol level is still at 107 mg/dl Reinforced low-cholesterol diet - goal is LDL cholesterol of less than 100 mg/dL, per cardiology Will have patient recheck his labs and fasting lipids in 4 months for follow-up (2) Benign essential hypertension: Code(s): I10 - Essential (primary) hypertension Category: Medical Plan: Reinforced low sodium diet - goal is systolic BP of at least 120 to 130 mm or less Continue Metoprolol ER 50 mg QD (3) Paroxysmal atrial fibrillation: Comment: S/P synchronized cardioversion Code(s): I48.0 - Paroxysmal atrial fibrillation Category: Medical Plan: Patient currently remains in sinus rhythm and is doing well with rhythm control approach Continue Multaq 400 mg BID and Metoprolol ER 50 mg QD His CHADsVAsc score is at 1 and patient prefers not to take any anticoagulant at this time Follow-up with cardiology as scheduled - he sees cardiology just once a year now (4) Thoracic aortic aneurysm: Code(s): I71.2 - Thoracic aortic aneurysm, without rupture Category: Medical Qualifiers: Presence of rupture: without rupture Thoracic aorta location: unspecified Qualified Code(s): I71.20 - Thoracic aortic aneurysm, without rupture, unspecified Plan: Repeat echocardiogram done in 04/2023 showed that his LV appears dilated (LVEDD 6.6 cm) - it was previously at normal size. The left ventricular systolic functi on is normal.? The calculated ejection fraction is 64% by biplane method. There is mild aortic valve regurgitation, mild mitral annular calcification and mild dilatation of the ascending aorta measuring 4.1 cm, which is mostly unchanged from last year Follow up with cardiology as scheduled for continuing surveillance (5) Ulcerative colitis: Comment: 59-year-old male newly diagnosis prostate cancer, after colonoscopy with pathology showing-moderately active colitis- Patient is overwhelmed, certainly understandable given his multiple new diagnoses- Consulted with Dr. David (as requested previously) to assist in beginning/managing care in this complex patient Will get T spot, hep B status, he had stool calprotectin-04/30-august repeat Code(s): K51.90 - Ulcerative colitis, unspecified, without complications Category: Medical Qualifiers: Digestive disease complication type: without complication Ulcerative colitis location: unspecified ulcerative colitis location Qualified Code(s): K51.90 - Ulcerative colitis, unspecified, without complications Plan: Patient states that his colitis is well-controlled on his current Rx and he's had no recent flare ups Continue Mesalamine ER 1.5 gm QD and Mesalamine 4 gm Q HS Follow up with GI as scheduled (6) Iron deficiency anemia: Code(s): D50.9 - Iron deficiency anemia, unspecified Category: Medical Qualifiers: Iron deficiency anemia type: unspecified iron deficiency Qualified Code(s): D50.9 - Iron deficiency anemia, unspecified Plan: Stable; continue Feosol 65 mg QD Will continue to monitor his CBC regularly (7) Vitamin D deficiency: Code(s): E55.9 - Vitamin D deficiency, unspecified Category: Medical Plan: Continue OTC Vitamin D3 2000 units QD (8) Prostate cancer metastatic to bone: Comment: staging is T1c, N0, N1B Rut[place] 4+4 oligometastatic prostate cancer with tumor in bilateral pubic rami and the left 7th rib Code(s): C61 - Malignant neoplasm of prostate; C79.51 - Secondary malignant neoplasm of bone Category: Medical Plan: Continue Zytiga 1000 mg QD, Prednisone 5 mg QD (started on 09/17/2020) and Eligard 45 mg Q 6 months Continue Tamsulosin 0.4 mg 2 tablets Q HS Patient received adjuvant radiation therapy from 01/04/2021 to 04/27/2021 with SBRT to right iliac bone; completed left ilium RT on 05/17/2021 and radiation to involved left 9th rib PET scan done on 02/11/2022 reportedly came out okay; PSA level continues to be below detectable range Follow up with urology, oncology and radiation oncology as scheduled (9) Obesity (BMI 30-39.9): Code(s): E66.9 - Obesity, unspecified Category: Medical Plan: Reinforced diet/exercise as tolerated/lose weight Plan Follow-up in 4 months Orders: Orders Complete Blood Count Auto Diff 4 Months D64.9 - Anemia, unspecified Comprehensive Brady. Panel Fast 4 Months E78.00 - Pure hypercholesterolemia, unspecified TSH reflex Free T4 4 Months E78.00 - Pure hypercholesterolemia, unspecified UA CC w/rflx Micro + Cult 4 Months R30.0 - Dysuria Lipid Panel 4 Months E78.00 - Pure hypercholesterolemia, unspecified Vitamin D 25-OH Total 4 Months E55.9 - Vitamin D deficiency, unspecified
[2024-10-08 14:41] VITALS: BP 118/64; PULSE 62; O2SAT 94; BMI 34.6
== END 2024-10-08 15:42 | disposition home or self-care (01) ==
LOC: HO.HMCH 14:37
PROVIDERS: PCP Internal Medicine; Visit Provider Internal Medicine
DX: I48.0 Paroxysmal atrial fibrillation (principal); K51.90 Ulcerative colitis, unspecified, without complications; C61 Malignant neoplasm of prostate; C79.51 Secondary malignant neoplasm of bone; I71.20 Thoracic aortic aneurysm, without rupture, unspecified; Z68.34 Body mass index [BMI] 34.0-34.9, adult; E66.9 Obesity, unspecified; E78.00 Pure hypercholesterolemia, unspecified; I10 Essential (primary) hypertension; D50.9 Iron deficiency anemia, unspecified; E55.9 Vitamin D deficiency, unspecified

== ENCOUNTER → 2024-10-08 14:36 | Outpatient (BNVA) | payer OTHER, SELFPAY | PROVIDERS: PCP Internal Medicine; Visit Provider Internal Medicine | DX: I10 Essential (primary) hypertension (principal); I48.0 Paroxysmal atrial fibrillation; E78.00 Pure hypercholesterolemia, unspecified; I71.20 Thoracic aortic aneurysm, without rupture, unspecified; K51.90 Ulcerative colitis, unspecified, without complications; D50.9 Iron deficiency anemia, unspecified; E55.9 Vitamin D deficiency, unspecified; C61 Malignant neoplasm of prostate; C79.51 Secondary malignant neoplasm of bone; E66.9 Obesity, unspecified; Z68.34 Body mass index [BMI] 34.0-34.9, adult | CPT/HCPCS: 96127 ==

== ENCOUNTER 2025-02-08 10:01 | Outpatient (REF) | payer OTHER, SELFPAY ==
--- OUTSIDE RECORDS SUMMARY | 2021-12-31 13:30 | XMS_ITS | Encounter Summary ---
Author Organization [facility] Address [address] [place] [address] Phone Care Team Providers Care Crossbar Switch Adjuster Name Role Phone Edis Nath MD Primary Care Provider [phone] Self-Referred, Patient Unavailable Unavailab Cammie Anderson MD Unavailable [phone] Gonzalo Sotomayor MD, MPH Unavailable [phone] Amilcar Fan MD Unavailable [phone] Nadia Sharp MD Unavailable [phone] Ashley Lilly MD Unavailable Reason for Referral * MRI/CAT Scan - Closed Specialty Diagnoses / Procedures Referred By Marty hanson Referred To Contact Radiology Diagnoses Secondary malignant neoplasm of bone and bone marrow Procedures CT Chest Nadia Sharp MD Phone: tel: fax: mailto:[email or web address] Referral ID Status Reason Start Date Expiration Date Visits Re quested Visits Authorized [id number] Closed 12/23/2021 02/21/2022 1 1 Reason for Visit * MRI/CAT Scan - Closed Specialty Diagnoses / Procedures Referred By Marty hanson Referred To Contact Radiology Diagnoses Secondary malignant neoplasm of bone and bone marrow Procedures CT Chest Nadia Sharp MD Phone: tel: fax: mailto:[email or web address] Referral ID Status Reason Start Date Expiration Date Visits Re quested Visits Authorized [id number] Closed 12/23/2021 02/21/2022 1 1 Encounter Details Date Type Department Care Team (Late st Contact Info) Description 12/31/2021 1:30 PM EDT Hospital Encounter [facility], Radiology Department Nadia Sharp MD [address] [place] [address] [email or web address] Social History Tobacco Use Types Packs/Day Years [...] marrow documented in this encounter Care Teams Crossbar Switch Adjuster Relationship Specialty Start Date End Date Edis Nath MD [address] [place] [address] [place] [address] PCP - General Internal Medicine 10/13/20 Self-Referred, Patient 10/13/20 Cammie Breen MD [address] [place] [address] [email or web address] Medical Oncology 10/13/20 Gonzalo Sotomayor MD, MPH [address] [place] [address], [facility]- [address] [place] [address] [email or web address] Radiation Oncology 10/26/20 Amilcar Fan MD [facility] [place] [address] Internal Medicine 11/19/20 Nadia Sharp MD [address] [place] [address] [email or web address] Radiation Oncology 12/07/21 Ashley Lilly MD [facility] [place] [address] [email or web address] Radiation Oncology 12/21/21 documented as of this encounter Additional Source Comments The information contained in this document represents components of the legal health record. It is not the complete legal health record.[facility]
--- OUTSIDE RECORDS SUMMARY | 2025-02-08 10:03 | XMS_ITS | Encounter Summary ---
Author Organization [facility] Address [address] [place] [address] Phone Care Team Providers Care Welfare Specialist Name Role Phone Edis Nath MD Primary Care Provider [phone] Self-Referred, Patient Unavailable Unavailab Cammie Anderson MD Unavailable [phone] Gonzalo Sotomayor MD, MPH Unavailable [phone] Amilcar Fan MD Unavailable [phone] Nadia Sharp MD Unavailable [phone] Ashley Lilly MD Unavailable Encounter Details Date Type Department Care Team (Late st Contact Info) Description 12/29/2021 Procedure Pass [facility], Radiology Department Social History Tobacco Use Types [...] on filedocumented in this encounter Care Teams Welfare Specialist Relationship Specialty Start Date End Date Edis Nath MD [address] [place] [address] [place] [address] PCP - General Internal Medicine 10/13/20 Self-Referred, Patient 10/13/20 Cammie Breen MD [address] [place] [address] [email or web address] Medical Oncology 10/13/20 Gonzalo Sotomayor MD, MPH [address] [place] [address], [facility]- [address] [place] [address] [email or web address] Radiation Oncology 10/26/20 Amilcar Fan MD [address] [place] [address] Internal Medicine 11/19/20 Nadia Sharp MD [address] [place] [address] [email or web address] Radiation Oncology 12/07/21 Ashley Lilly MD [address] [place] [address] [email or web address] Radiation Oncology 12/21/21 documented as of this encounter Additional Source Comments The information contained in this document represents components of the legal health record. It is not the complete legal health record.[facility]
--- OUTSIDE RECORDS SUMMARY | 2025-02-08 10:03 | XMS_ITS | Clinical Summary ---
Author Organization [facility] Address [address] [place] [address] Phone Care Team Providers Care Systems Technologist Name Role Phone Edis Nath MD Primary Care Provider [phone] Self-Referred, Patient Unavailable Unavailab Cammie Anderson MD Unavailable [phone] Gonzalo Sotomayor MD, MPH Unavailable [phone] Amilcar Fan MD Unavailable Nadia Sharp MD Unavailable [phone] Ahsley Lilly MD Unavailable Allergies No known active allergies Medications metoprolol succinate (TOPROL-XL) 50 MG 24 hr tablet Take 50 mg by mouth daily. 10/22/2020 Active abiraterone 500 mg Tab 11/04/2020 Active predniSONE (DELTASONE) 5 MG tablet 11/04/2020 Active [...] cM1b, PSA: 38.8, Grade Group: 4, 06/29/20, [place]: 4, +: 4) - Signed by Gonzalo Sotomayor MD, MPH on 11/19/2020 Immunizations Immunization Administration Dates Next Due COVID-19 (Pre-01/30) Pfizer [...] 74 12/21/2021 2:07 PM EDT Temperature 36.9 C (98.4 F) 12/21/2021 2:07 PM EDT Respiratory Rate 18 12/21/2021 2:07 PM EDT [...] LIPID PANEL 1958 DEPRESSION SCREENING 1970 HEPATITIS C SCREENING 1976 COLOGUARD 09/09/2003 COLONOSCOPY 09/09/2003 COLORECTAL CANCER SCREENING 09/09/2003 FIT TEST 09/09/2003 FOBT 09/09/2003 SIGMOIDOSCOPY 09/09/2003 VIRTUAL COLONOSCOPY 09/09/2003 PNEUMOCOCCAL VACCINES (50+ years) (2 of 2 - PCV) 01/25/2022 01/25/2021 INFLUENZA VACCINE (#1) 2024 , 01/15/2020, 01/24/2019, Additional history exists COVID-19 VACCINE (2024- season) 2024 09/03/2021, 02/04/2021, 04/19/2020, Additional history exists Adult [...] age to complete this topic MENINGOCOCCAL VACCINES (B) Aged Out N o longer eligible based on patient's age to complete this topic Medical Devices Not on file Insurance [address] [place], [place] [address]S [facility] PPO PHCS Care Teams Systems Technologist Relationship Specialty Start Date End Date Edis Nath MD [address] [place] [address] [place] [address] PCP - General Internal Medicine 10/13/20 Self-Referred, Patient 10/13/20 Cammie Breen MD [address] [place] [address] [email or web address] Medical Oncology 10/13/20 Gonzalo Sotomayor MD, MPH [address] [place] [address] [email or web address] Radiation Oncology 10/26/20 Amilcar Fan MD [address] [place] [address] Internal Medicine 11/19/20 Nadia Sharp MD [address] [place] [address] [email or web address] Radiation Oncology 12/07/21 Ashley Lilly MD [facility] [place] [address] [email or web address] Radiation Oncology 12/21/21 Additional Source Comments The information contained in this document represents components of the legal health record. It is not the complete legal health record.[facility]
[2025-02-08 10:12] LABS: MANUAL DIFF FLAG NO
[2025-02-08 10:44] LABS: Hematocrit 33.8 % (42.0-52.0); Hemoglobin 11.6 g/dl (14.0-18.0); Imm Gran Abs Auto 0.03 X10*3/uL (0.00-0.03); Imm Gran Pct Auto 0.4 % (0.0-0.4); Lymphocytes Absolute Auto 1.0 X10*3/uL (1.2-4.9); Mean Corpuscular HGB Conc 34.3 g/dl (31.0-36.0); Mean Corpuscular Hemoglobin 32.3 pg (27.0-33.0); Mean Corpuscular Volume 94.2 fL (80.0-98.0); NRBC Abs Auto 0.000 X10*3/uL (0.0-0.012); NRBC Pct Auto 0.0 /100WBC (0.0-0.2); Platelet Count 207 X10*3/uL (160-400); Red Blood Count 3.59 X10*6/uL (4.60-5.80); White Blood Count 7.4 X10*3/uL (4.8-10.8)
[2025-02-08 10:56] LABS: Appearance Urine Clear; Glucose Urine UA Negative (Negative); PH 6.0 (5.0-9.0); Specific Gravity - Urine 1.010 (1.005-1.025); UMIC TRIGGER UACC YES
[2025-02-08 11:20] LABS: Alanine Aminotransferase 21 U/L (0-40); Albumin Level 3.5 g/dL (3.5-5.0); Alkaline Phosphatase 78 U/L (39-117); Anion Gap 11 (12-20); Aspartate Amino Transferase 33 U/L (5-37); Blood Urea Nitrogen 20 mg/dL (9-16); Calcium 8.8 mg/dL (8.4-10.2); Carbon Dioxide 26 mmol/L (22-29); Chloride 104 mmol/L (96-108); Cholesterol 195 mg/dL (<200); Estimated Glomerular Filt Rate 43; HDL Cholesterol 45 mg/dL (>40); Potassium 4.0 mmol/L (3.3-5.1); Sodium 137 mmol/L (135-145); Total Protein 6.1 g/dL (6.5-8.0); Triglycerides 223 mg/dL (<150)
== END 2025-02-08 10:02 | disposition home or self-care (01) ==
LOC: HO.LAB 10:01
PROVIDERS: PCP Internal Medicine; Visit Provider Internal Medicine
DX: D64.9 Anemia, unspecified (principal); E78.00 Pure hypercholesterolemia, unspecified; E55.9 Vitamin D deficiency, unspecified; R30.0 Dysuria
CPT/HCPCS: 36415; 80053; 80061; 81001; 82306; 84443; 85025

== ENCOUNTER 2025-02-10 12:45 | Outpatient (AMB) | payer OTHER, SELFPAY ==
--- OUTSIDE RECORDS SUMMARY | 2021-12-31 12:30 | XMS_ITS | Encounter Summary ---
Author Organization [facility] Address [address] [place] [address] Phone Care Team Providers Care Environmental Protection Geologist Name Role Phone Edis Nath MD Primary Care Provider [phone] Self-Referred, Patient Unavailable Unavailab Cammie Anderson MD Unavailable [phone] Gonzalo Sotomayor MD, MPH Unavailable [phone] Amilcar Fan MD Unavailable [phone] Nadia Sharp MD Unavailable [phone] Ashley Lilly MD Unavailable Reason for Referral * MRI/CAT Scan - Closed Specialty Diagnoses / Procedures Referred By Marty hanson Referred To Contact Radiology Diagnoses Secondary malignant neoplasm of bone and bone marrow Procedures CT Chest Nadia Sharp MD Phone: tel: fax: mailto:[email or web address] Referral ID Status Reason Start Date Expiration Date Visits Re quested Visits Authorized [id number] Closed 12/23/2021 02/21/2022 1 1 Reason for Visit * MRI/CAT Scan - Closed Specialty Diagnoses / Procedures Referred By Marty hanson Referred To Contact Radiology Diagnoses Secondary malignant neoplasm of bone and bone marrow Procedures CT Chest Nadia Sharp MD Phone: tel: fax: mailto:[email or web address] Referral ID Status Reason Start Date Expiration Date Visits Re quested Visits Authorized [id number] Closed 12/23/2021 02/21/2022 1 1 Encounter Details Date Type Department Care Team (Late st Contact Info) Description 12/31/2021 1:30 PM EDT Hospital Encounter [facility], Radiology Department Nadia Sharp MD [address] [place] [id number] [email or web address] Social History Tobacco Use Types Packs/Day [...] marrow documented in this encounter Care Teams Environmental Protection Geologist Relationship Specialty Start Date End Date Edis Nath MD [address] [place] [address] [place] [address] PCP - General Internal Medicine 10/13/20 Self-Referred, Patient 10/13/20 Cammie Breen MD [address] [place] [address] [email or web address] Medical Oncology 10/13/20 Gonzalo Sotomayor MD, MPH [address] [place] [address], [facility] [place] [address] [email or web address] Radiation Oncology 10/26/20 Amilcar Fan MD [facility] [place] [address] Internal Medicine 11/19/20 Nadia Sharp MD [address] [place] [address] [email or web address] Radiation Oncology 12/07/21 Ashley Lilly MD [facility] [place] [address] [email or web address] Radiation Oncology 12/21/21 documented as of this encounter Additional Source Comments The information contained in this document represents components of the legal health record. It is not the complete legal health record.[facility]
--- OUTSIDE RECORDS SUMMARY | 2025-02-05 22:59 | XMS_ITS | Continuity of Care Document ---
Author Organization [facility] Address [address] [place] [address]- Care Team Providers Care Oxygen Tank Filler Name Role Phone Portillo CARDOZO, Edis Kauffman Primary Care Physician Encounter [facility] Date(s): 01/06/25 - 02/05/25 [facility] [address] [place], [place] [address] Encounter Type: Triage Allergies, Adverse Reactions, Alerts No Known Allergies Medications abiraterone 250 mg oral tablet 4 tablet = 1,000 mg, By Mouth, Daily, # 120 tablet, 5 Refills, Maintenance, 10/04/24 10:31:00 AM EDT, Tablet, [facility], Partial fill upon patient request if the prescription is for a schedule II opioid drug., 170, cm, 09/23/24 10:20:00 EDT, Height, 101.3, kg, 09/23/24 10:20:00 EDT, Dry Weight Start Date: 10/04/24 Status: Ordered Medication Dispense Status: Completed Quantity: 120.0 Unit: tablet Total Allowed Fills: 6 Fills Dispensed: 0 calcium (as carbonate)-vitamin D 500 mg-600 intl units oral tablet 1 tablet, By Mouth, 2 times a day, # 60 tablet, 5 Refills, Maintenance, 04/27/22 11:44:00 AM EST, Tablet, [facility], Partial fill upon patient request if the prescription is for a schedule II opioid drug., 1 tablet By Mouth 2 times a day, 165, cm, 04/27/22 10:44:00 EST, Height, 94.1, kg, 04/27/22 10:44:00 EST, Dry Weight Start Date: 04/27/22 Status: Ordered Medication Dispense Status: Completed Quantity: 60.0 Unit: tablet Total Allowed Fills: 6 Fills Dispensed: 0 CALCIUM 500-VIT D3 600 TAB 500-15 Tablet CALCIUM 500-VIT D3 600 TAB 500-15 Tablet, 1, tablet, By Mouth, 2 times a day, # 60 tablet, 5 Refills, Maintenance, 12/06/22 9:36:00 AM EDT, 165, cm, 11/28/22 10:34:00 EDT, Height, 92.4, kg, 11/28/22 10:34:00 EDT, Dry Weight Start Date: 12/06/22 Status: Ordered Medication Dispense Status: Completed Quantity: 60.0 Unit: tablet Total Allowed Fills: 1 Fills Dispensed: 0 CALCIUM 500-VIT D3 600 TAB 500-15 Tablet CALCIUM 500-VIT D3 600 TAB 500-15 Tablet, 1, tablet, By Mouth, 2 times a day, # 60 tablet, 5 Refills, Maintenance, 06/29/23 7:58:00 AM EDT, 170, cm, 05/31/23 8:36:00 EST, Height, 95.5, kg, 05/31/23 8:36:00 EST, Dry Weight Start Date: 06/29/23 Status: Ordered Medication Dispense Status: Completed Quantity: 60.0 Unit: tablet Total Allowed Fills: 1 Fills Dispensed: 0 CALCIUM 500-VIT D3 600 TAB 500-15 Tablet CALCIUM 500-VIT D3 600 TAB 500-15 Tablet, 1, tablet, By Mouth, 2 times a day, # 60 tablet, 5 Refills, Maintenance, 01/15/24 7:52:00 AM EDT, 170, cm, 10/02/23 8:51:00 EDT, Height, 102.8, kg, 10/02/23 8:51:00 EDT, Dry Weight Start Date: 01/15/24 Status: Ordered Medication Dispense Status: Completed Quantity: 60.0 Unit: tablet Total Allowed Fills: 1 Fills Dispensed: 0 CALCIUM 500-VIT D3 600 TAB 500-15 Tablet CALCIUM 500-VIT D3 600 TAB 500-15 Tablet, 1, tablet, By Mouth, 2 times a day, # 60 tablet, 6 Refills, Maintenance, 07/26/24 4:41:00 PM EDT, 170, cm, 05/29/24 11:28:00 EST, Height, 100.9, kg, 05/29/24 11:28:00 EST, Dry Weight Start Date: 07/26/24 Status: Ordered Medication Dispense Status: Completed Quantity: 60.0 Unit: tablet Total Allowed Fills: 1 Fills Dispensed: 0 Clenpiq 10 mg-3.5 g-12 g/175 mL oral liquid See Instructions, as instructed by YOLANDE, # 1 kit, 0 Refills, Maintenance, 12/20/22 3:22:00 PM EDT, [facility], Partial fill upon patient request if the prescription is for a schedule IIopioid drug., as instructed by YOLANDE, 165, cm, 11/28/22 10:34:00 EDT, Height, 92.4, kg, 11/28/22 10:34:00 EDT, Dry Weight Start Date: 12/20/22 Status: Ordered Medication Dispense Status: Completed Quantity: 1.0 Unit: kit Total Allowed Fills: 1 Fills Dispensed: 0 mesalamine 800 mg oral delayed release tablet 2 tablet, By Mouth, 2 times a day, # 360 tablet, 3 Refills, Maintenance, 06/26/24 1:59:00 PM EDT, [facility], 170, cm, 05/29/24 11:28:00 EST, Height, 100.9, kg, 05/29/24 11:28:00 EST,Dry Weight Start Date: 06/26/24 Status: Ordered Medication Dispense Status: Completed Quantity: 360.0 Unit: tablet Total Allowed Fills: 1 Fills Dispensed: 0 metoprolol 50 mg oral tablet 50 mg, 1, tablet, By Mouth, Daily, # 60 tablet, Refills 0, Maintenance, 03/31/18 11:52:04 PM EST Start Date: 03/31/18 Status: Ordered Medication Dispense Status: Completed Quantity: 60.0 Unit: tablet Total Allowed Fills: 1 Fills Dispensed: 0 Multaq 400 mg oral tablet 1 tablet = 400 mg, By Mouth, Daily, # 60 tablet, 0 Refills, Maintenance, 03/31/18 11:51:37 PM EST, Tablet Start Date: 03/31/18 Status: Ordered Medication Dispense Status: Completed Quantity: 60.0 Unit: tablet Total Allowed Fills: 1 Fills Dispensed: 0 multivitamin with iron Multiple Vitamins with Iron oral tablet 1 tablet, By Mouth, Daily, Maintenance, 09/06/20 3:40:00 PM EDT, Tablet, Partial fill upon patient request if the prescription is for a schedule II opioid drug. Start Date: 09/06/20 Status: Ordered Medication Dispense Status: Completed Total Allowed Fills: 1 Fills Dispensed: 0 PEG-3350 with Electrolytes (Eqv-GoLYTELY) oral powder for reconstitution 240 mL, By Mouth, Every 10 minutes, # 4,000 mL, 0 Refills, Maintenance, 11/17/22 8:29:00 AM EDT, [facility], [place] to sub for any available gallon prep, 240 mL By Mouth Every 10 minutes,165, cm, 10/27/22 10:44:00 EDT, Height, 91.8, kg, 10/27/22 10:44:00 EDT, Dry Weight Start Date: 11/17/22 Status: Ordered Medication Dispense Status: Completed Quantity: 4000.0 Unit: mL Total Allowed Fills: 1 Fills Dispensed: 0 predniSONE 20 mg oral tablet 2 tablet = 40 mg, By Mouth, Daily, # 10 tablet, 0 Refills, Maintenance, 07/06/24 11:01:00 PM EDT, [id number], Partial fill upon patient request if the prescription is for a schedule II opioid drug., 170, cm, 05/29/24 11:28:00 EST, Height, 100.9, kg, 05/29/24 11:28:00 EST, Dry Weight Start Date: 07/06/24 Status: Ordered Medication Dispense Status: Completed Quantity: 10.0 Unit: tablet Total Allowed Fills: 1 Fills Dispensed: 0 predniSONE 5 mg oral tablet 1 tablet, By Mouth, Daily, # 30 tablet, 5 Refills, Maintenance, 10/04/24 10:31:00 AM EDT, [facility], 170, cm, 09/23/24 10:20:00 EDT, Height, 101.3, kg, 09/23/24 10:20:00 EDT, Dry Weight Start Date: 10/04/24 Status: Ordered Medication Dispense Status: Completed Quantity: 30.0 Unit: tablet Total Allowed Fills: 6 Fills Dispensed: 0 Redi Cat 2- pre mixed 450 ml Redi Cat 2- pre mixed 450 ml, See Instructions, # 900 mL, Refills 0, Tot. Refills 0, Maintenance, for CT scan as instructed, 10/27/22 11:51:00 AM EDT, Compound, 165, cm, 10/27/22 10:44:00 EDT, Height,91.8, kg, 10/27/22 10:44:00 EDT, Dry Weight Start Date: 10/27/22 Status: Ordered Medication Dispense Status: Completed Quantity: 900.0 Unit: mL Total Allowed Fills: 1 Fills Dispensed: 0 tamsulosin 0.4 mg oral capsule 0.8 mg, 2, capsule, By Mouth, Daily, Refills 0, Maintenance, 08/19/20 1:26:00 PM EDT, Partial fill upon patient request if the prescription is for a schedule II opioid drug. Start Date: 08/19/20 Status: Ordered Medication Dispense Status: Completed Total Allowed Fills: 1 Fills Dispensed: 0 Problem List Condition Confirmation Course Effective Dates Status Health St atus Informant A-fib 1 Confirmed Active Chronic hypertension Confirmed Active Severe obesity (BMI 35.0-39.9) with comorbidity Confirmed Active 1cardiology Dr Muller Social History Social History Type Response Smoking Status Never smoker entered on: 10/10/14 Sex Sex Representation Male (finding) Patient Care team information Care Team Personnel Name: Ella Albright Position: S Onco RN Member Role: Primary Care Nurse Name: Portillo CARDOZO, Edis Kauffman Position: Reference Physician Member Role: PCP Address: [address] [place] [address] Telecom: Name: Troy HAMPTON, Shirlene De La Paz Position: S Onco RN Member Role: Primary Care Nurse Name: Kathleen Oleary RN, Sin Position: [facility] ED RN W/OE and Tasks Member Role: Primary Care Nurse Care Team Related Persons Name: SHIREEN BYRNE Name: MCKENNA BYRNE Insurance Providers Guarantor name: TOSHIA BYRNE Health Plan Information #: 1 Payer: [employer] [facility] PPO Payer Identifier: KEILY Member Number: [id number] Group Number: [id number] Subscriber Identifier: NA Relationship to Subscriber: self Coverage Type: Other Private Insurance Coverage Verification Date: NA Telecom: NA Address:
[2025-02-10 12:48] VITALS: BP 130/70; PULSE 56; O2SAT 94; BMI 36.4
--- NOTE | 2025-02-10 12:48 | A.OFFPC_ITS ---
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 Required: No Accompanied by: Self / Same As Patient Allergies No Known Allergies (No Known Allergies*) Allergy (Verified 02/10/25 13:05) Medication List - Last Reconciled 02/10/25 by Edis Nath MD abiraterone 1,000 mg PO DAILY calcium carbonate-vitamin D3 600 mg-12.5 mcg (500 unit) (Calcium with Vit D3) caps PO dronedarone (Multaq) 400 mg PO BID 90 days leuprolide (Eligard) 7.5 mg subcut Q4W memantine 5 mg PO BID metoprolol succinate ER 50 mg PO DAILY 90 days prednisone 5 mg PO DAILY tamsulosin 0.8 mg (2 x 0.4 mg) PO BEDTIME 90 days Tobacco use date assessed: 02/10/25 Fall risk assessment: No Falls in past year Last assessed Fall Risk: 02/10/25 Dental Screening Dental Screen Date: 02/10/25 Did you have a dental visit in the last 12 months?: Yes Did you have a dental problem in the last 6 months where you did not have access to dental care?: No Was dental information given to patient?: Patient has dentist HPI 4 month HPI Details Patient comes in today for his follow up visit States that he feels okay He denies any headaches or dizziness Denies any chest pains, no shortness of breath No nausea/vomiting, no abdominal pain No change in bowel habits noted He had his follow-up labs done a couple of days ago - to discuss his results [facility] Medical History Vitamin D deficiency Prostate cancer metastatic to bone Thoracic aortic aneurysm Chronic diarrhea Obesity (BMI 30-39.9) Bladder outlet obstruction Iron deficiency anemia Paroxysmal atrial fibrillation Pure hypercholesterolemia Benign essential hypertension Surgical History Hx of colonoscopy History of cystoscopy History of hernia repair Family History Father Diabetes Kidney failure, acute Mother Diabetes Sister In good health Social History Household Members: None Housing: House Alcohol intake: never Patient Tobacco Use Status: Never used Tobacco e-Cigarette/Vaping Use: Never Used Second Hand Smoke Exposure: Yes service: No Current occupational status: employed Current occupation: [employer] Cognitive needs: No Hearing needs: Yes Vision needs: Yes Questionnaire Thrive Questionnaire Date Thrive assessed: 10/02/24 I am a: Patient What is your living situation today?: I have a steady place to live Within the past 12 months, did the food you bought not last and you didn't have the money to get more?: Never true Within the past 12 months, did you worry whether your food would run out before you got money to buy more?: Never true Do you have trouble paying for medicines?: No Do you have trouble getting transportation to medical appointments?: No Do you have trouble paying your heating and electricity bill?: No Do you have trouble taking care of your child, family member or friend?: No Do you have trouble with day-to-day activities such as bathing, preparing meals, shopping, managing finances, etc.?: No Are you currently unemployed and looking for a job?: No Are you interested in more education?: No Please select the resources that you would like help with: None Currently or been in a relationship where the following occur: No concerns reported THRIVE Score: 0 AUDIT C Alcohol Use Questionnaire (AUDIT-C) 1. How often do you have a drink containing alcohol?: Never 3. How often do you have six or more drinks on one occasion?: Never Total Score: 0 Score Reviewed/Action Taken: Yes ARTHUR-7 AMB Questionnaire ARTHUR-7 Date ARTHUR - 7 assessed: 10/08/24 Source: Developed by Drs. Joaquín Persaud, Paulina Reis, Ferdinand Schafer and colleagues, with an educational ev from [employer]. Review of Systems Const Denies chills, Reports difficulty sleeping (wakes up often in the middle of the night to go to the bathroom), Reports fatigue, Denies fever(s) and Denies headache(s) ENT Denies dysphagia, Denies dizziness, Denies otalgia, Denies headache(s), Denies neck pain, Denies odynophagia and Denies sore throat Card Denies chest pain, Denies palpitations and Denies dyspnea Resp Denies chest congestion, Denies cough and Denies dyspnea GI Denies abdominal pain, Denies constipation, Denies dysphagia, Denies heartburn, Reports diarrhea (on and off), Denies nausea, Denies odynophagia and Denies vomiting Denies dysuria, Reports nocturia and Reports urinary frequency Musc Denies back pain, Reports arthralgias (mild left hip discomfort) and Denies neck pain Skin/Breast Denies rash Neuro Denies dizziness and Denies headache(s) Endo Reports fatigue and Denies palpitations Physical exam (Primary Care) Vital Signs: Last Vital Signs Pulse 56 02/10/25 12:48 BP 130/70 02/10/25 12:48 Pulse Ox 94 02/10/25 12:48 Oxygen Delivery Method Room Air 02/10/25 12:48 BMI result Body Mass Index 36.4 Tobacco/Smoking Status: Tobacco use Status Tobacco use date assessed 02/10/25 02/10/25 12:56 Patient Tobacco Use Status Never used Tobacco 02/10/25 12:56 e-Cigarette/Vaping Use Never Used 02/10/25 12:56 Thrive Assessment: Date of Thrive Assessment Date Thrive assessed 10/02/24 02/10/25 12:56 Currently or been in a relationship where the following occur: No concerns reported Const General: no acute distress and alert HENMT Ears: TM's normal bilaterally and EAC's normal Throat: Yes posterior oropharynx normal and Yes tonsils normal (no TP congestion noted) Neck Neck: Yes supple and No lymphadenopathy Thyroid: Thyroid normal Resp Auscultation: clear to auscultation bilaterally, no rales and no wheezes Cardio Rate: regular rate Rhythm: regular rhythm Heart sounds: no murmurs GI Palpation (GI): Soft to palpation and nontender Auscultation: normal bowel sounds General: Yes no CVA tenderness Back/Spine/Pelvis Back: no CVA tenderness Thoracic/Lumbar Spine: No lumbar spinal tenderness Skin Rashes: no rashes Extrem General: Yes no clubbing, cyanosis or edema Results Reviewed Results Reviewed: Laboratory Tests 02/08/25 02/08/25 10:06 10:11 WBC 7.4 Hgb 11.6 L Hct 33.8 L Plt Count 207 Sodium 137 Potassium 4.0 Creatinine 1.62 H Estimated GFR 43 Fasting Glucose 87 Calcium 8.8 Total Bilirubin 0.6 AST 33 ALT 21 Triglycerides 223 H Cholesterol 195 LDL Cholesterol, Calc 106 H HDL Cholesterol 45 25-OH Vitamin D Total 30.8 TSH 2.44 Ur Specific United 1.010 Urine Protein 300 (3+) H Urine Glucose (UA) Negative Urine Blood Trace H Urine Nitrite Negative Ur Leukocyte Esterase Negative Coding Level of Care Code Est Pt Level 4 (68181) Diagnoses Pure hypercholesterolemia E78.00 Benign essential hypertension I10 Paroxysmal atrial fibrillation I48.0 Renal insufficiency N28.9 Thoracic aortic aneurysm without rupture, unspecified part I71.20 Thoracic aorta location: unspecified Presence of rupture: without rupture Ulcerative colitis without complications, unspecified location K51.90 Ulcerative colitis location: unspecified ulcerative colitis location Digestive disease complication type: without complication Iron deficiency anemia, unspecified iron deficiency anemia type D50.9 Iron deficiency anemia type: unspecified iron deficiency Vitamin D deficiency E55.9 Prostate cancer metastatic to bone C61; C79.51 Obesity (BMI 30-39.9) E66.9 Assessment & Plan Assessment & Plan (1) Pure hypercholesterolemia: Code(s): E78.00 - Pure hypercholesterolemia, unspecified Category: Medical Plan: Results of his labs done a couple of days ago reviewed and discussed with patient - his cholesterol levels are mostly unchanged from previous Reinforced low-cholesterol diet - goal is LDL cholesterol of less than 100 mg/dL , per cardiology Will have patient recheck his labs and fasting lipids in 4 months for follow-up (2) Benign essential hypertension: Code(s): I10 - Essential (primary) hypertension Category: Medical Plan: Reinforced low sodium diet - goal is systolic BP of at least 120 to 130 mm or less Continue Metoprolol ER 50 mg QD (3) Paroxysmal atrial fibrillation: Comment: S/P synchronized cardioversion Code(s): I48.0 - Paroxysmal atrial fibrillation Category: Medical Plan: Patient currently remains in sinus rhythm and is doing well with rhythm control approach Continue Multaq 400 mg BID and Metoprolol ER 50 mg QD His CHADsVAsc score is at 1 and patient prefers not to take any anticoagulant at this time Follow-up with cardiology as scheduled - he sees cardiology just once a year now (4) Renal insufficiency: Code(s): N28.9 - Disorder of kidney and ureter, unspecified Category: Medical Plan: Patient is advised that his renal function appears to have declined significantly on his recent labs - patient recalls that he fasted for hours for a couple of days prior to getting his labs done about 2 days ago as the first day he fasted he ended up NOT etting to the lab in time as something came up and he was not able to go for his labs then Will have patient recheck his BMP/renal function in 1 week to see if his numbers will get tenter frame back tender to his previous baseline; if not, then we may need to refer him to nephrology then (5) Thoracic aortic aneurysm: Code(s): I71.2 - Thoracic aortic aneurysm, without rupture Category: Medical Qualifiers: Thoracic aorta location: unspecified Presence of rupture: without rupture Qualified Code(s): I71.20 - Thoracic aortic aneurysm, without rupture, unspecified Plan: Repeat echocardiogram done in 04/2023 showed that his LV appears dilated (LVEDD 6.6 cm) - it was previously at normal size. The left ventricular systolic function is normal.? The calculated ejection fraction is 64% by biplane method. There is mild aortic valve regurgitation, mild mitral annular calcification and mild dilatation of the ascending aorta measuring 4.1 cm, which is mostly unchanged from last year Follow up with cardiology as scheduled for continuing surveillance (6) Ulcerative colitis: Comment: 59-year-old male newly diagnosis prostate cancer, after colonoscopy with pathology showing-moderately active colitis- Patient is overwhelmed, certainly understandable given his multiple new diagnoses- Consulted with Dr. David (as requested previously) to assist in beginning/managing care in this complex patient Will get T spot, hep B status, he had stool calprotectin-04/30-august repeat Code(s): K51.90 - Ulcerative colitis, unspecified, without complications Category: Medical Qualifiers: Ulcerative colitis location: unspecified ulcerative colitis location Digestive disease complication type: without complication Qualified Code(s): K51.90 - Ulcerative colitis, unspecified, without complications Plan: Patient states that his colitis has been well-controlled on his current Rx and he's had no recent flare ups Continue Mesalamine ER 1.5 gm QD and Mesalamine 4 gm Q HS Follow up with GI as scheduled (7) Iron deficiency anemia: Code(s): D50.9 - Iron deficiency anemia, unspecified Category: Medical Qualifiers: Iron deficiency anemia type: unspecified iron deficiency Qualified Code(s): D50.9 - Iron deficiency anemia, unspecified Plan: Stable; continue Feosol 65 mg QD Will continue to monitor his CBC regularly (8) Vitamin D deficiency: Code(s): E55.9 - Vitamin D deficiency, unspecified Category: Medical Plan: Continue OTC Vitamin D3 2000 units QD (9) Prostate cancer metastatic to bone: Comment: staging is T1c, N0, N1B Lisette 4+4 oligometastatic prostate cancer with tumor in bilateral pubic rami and the left 7th rib Code(s): C61 - Malignant neoplasm of prostate; C79.51 - Secondary malignant neoplasm of bone Category: Medical Plan: Continue Zytiga 1000 mg QD, Prednisone 5 mg QD (started on 09/17/2020) and Eligard 45 mg Q 6 months Continue Tamsulosin 0.4 mg 2 tablets Q HS Patient received adjuvant radiation therapy from 01/04/2021 to 04/27/2021 with SBRT to right iliac bone; completed left ilium RT on 05/17/2021 and radiation to involved left 9th rib PET scan done on 02/11/2022 reportedly came out okay; PSA level continues to be below detectable range Follow up with urology, oncology and radiation oncology as scheduled (10) Obesity (BMI 30-39.9): Code(s): E66.9 - Obesity, unspecified Category: Medical Plan: Reinforced diet/exercise as tolerated/lose weight Plan Follow-up in 4 months Orders: Orders Basic Metabolic Panel 1 Week N28.9 - Disorder of kidney and ureter, unspecified Comprehensive Z[place]. Panel Fast 4 Months E78.00 - Pure hypercholesterolemia, unspecified Complete Blood Count Auto Diff 4 Months D64.9 - Anemia, unspecified Lipid Panel 4 Months E78.00 - Pure hypercholesterolemia, unspecified UA CC w/rflx Micro + Cult 4 Months R30.0 - Dysuria TSH reflex Free T4 4 Months E78.00 - Pure hypercholesterolemia, unspecified Vitamin D 25-OH Total 4 Months E55.9 - Vitamin D deficiency, unspecified
--- OUTSIDE RECORDS SUMMARY | 2025-02-10 16:07 | XMS_ITS | Encounter Summary ---
Author Organization [facility] Address [address] [place] [address] Phone Care Team Providers Care Pipe Organ Mechanic Name Role Phone Edis Nath MD Primary Care Provider [phone] Self-Referred, Patient Unavailable Unavailab Cammie Anderson MD Unavailable [phone] Gonzalo Sotomayor MD, MPH Unavailable [phone] Amilcar Fan MD Unavailable [phone] Nadia Sharp MD Unavailable [phone] Ashley Lilly MD Unavailable Encounter Details Date Type Department Care Team (Late st Contact Info) Description 12/29/2021 Procedure Pass [facility], Radiology Department Social History Tobacco Use Types [...] on filedocumented in this encounter Care Teams Pipe Organ Mechanic Relationship Specialty Start Date End Date Edis Nath MD [address] [place] [address] [place] [address] PCP - General Internal Medicine 10/13/20 Self-Referred, Patient 10/13/20 Cammie Breen MD [address] [place] [address] [email or web address] Medical Oncology 10/13/20 Gonzalo Sotomayor MD, MPH [address] [place] [address], [facility]1- [address] [place] [address] [email or web address] Radiation Oncology 10/26/20 Amilcar Fan MD [address] [place] [address] Internal Medicine 11/19/20 Nadia Sharp MD [address] [place] [address] [email or web address] Radiation Oncology 12/07/21 Ashley Lilly MD [address] [place] [address] [email or web address] Radiation Oncology 12/21/21 documented as of this encounter Additional Source Comments The information contained in this document represents components of the legal health record. It is not the complete legal health record.[facility]
--- OUTSIDE RECORDS SUMMARY | 2025-02-10 16:07 | XMS_ITS | Clinical Summary ---
Author Organization [facility] Address [address] [place] [address] Phone Care Team Providers Care Brushing Machine Operator Name Role Phone Edis Nath MD Primary Care Provider [phone] Self-Referred, Patient Unavailable Unavailab Cammie Anderson MD Unavailable [phone] Gonzalo Sotomayor MD, MPH Unavailable [phone] Amilcar Fan MD Unavailable Nadia Sharp MD Unavailable [phone] Ashley Lilly MD Unavailable Allergies No known [...] cM1b, PSA: 38.8, Grade Group: 4, 06/29/20, [place]: 4, +: 4) - Signed by Gonzalo [...] topic Medical Devices Not on file Insurance [address] [place], [place] [address]S [facility] PPO PHCS Care Teams Brushing Machine Operator Relationship Specialty Start Date End Date Edis Nath MD [address] [place] [address] [place] [address] PCP - General Internal Medicine 10/13/20 Self-Referred, Patient 10/13/20 Cammie Breen MD [address] [place] [address] [email or web address] Medical Oncology 10/13/20 Gonzalo Sotomayor MD, MPH [address] [place] [address] [email or web address] Radiation Oncology 10/26/20 Amilcar Fan MD [address] [place] [address] Internal Medicine 11/19/20 Nadia Sharp MD [address] [place] [address] [email or web address] Radiation Oncology 12/07/21 Ashley Lilly MD [facility] [place] [address] [email or web address] Radiation Oncology 12/21/21 Additional Source Comments The information contained in this document represents components of the legal health record. It is not the complete legal health record.[facility]
== END 2025-02-10 13:20 | disposition home or self-care (01) ==
LOC: HO.HMCH 12:45
PROVIDERS: PCP Internal Medicine; Visit Provider Internal Medicine
DX: I48.0 Paroxysmal atrial fibrillation (principal); K51.90 Ulcerative colitis, unspecified, without complications; C79.51 Secondary malignant neoplasm of bone; C61 Malignant neoplasm of prostate; E78.00 Pure hypercholesterolemia, unspecified; I10 Essential (primary) hypertension; I71.20 Thoracic aortic aneurysm, without rupture, unspecified; N28.9 Disorder of kidney and ureter, unspecified; D50.9 Iron deficiency anemia, unspecified; E55.9 Vitamin D deficiency, unspecified; E66.9 Obesity, unspecified

== ENCOUNTER 2025-02-17 13:52 | Outpatient (REF) | payer OTHER, SELFPAY ==
--- OUTSIDE RECORDS SUMMARY | 2021-12-31 12:30 | XMS_ITS | Encounter Summary ---
Author Organization [facility] Address [address] [place] [address] Phone Care Team Providers Care Test Fixture Assembler Name Role Phone Edis Nath MD Primary Care Provider [phone] Self-Referred, Patient Unavailable Unavailab Cammie Anderson MD Unavailable [phone] Gonzalo Sotomayor MD, MPH Unavailable [phone] Amilcar Fan MD Unavailable [phone] Nadia Sharp MD Unavailable [phone] Ashley Lilly MD Unavailable Reason for Referral * MRI/CAT Scan - Closed Specialty Diagnoses / Procedures Referred By Marty hanson Referred To Contact Radiology Diagnoses Secondary malignant neoplasm of bone and bone marrow Procedures CT Chest Nadia Sharp MD Phone: tel: fax: mailto:[email or web address] Referral ID Status Reason Start Date Expiration Date Visits Re quested Visits Authorized [id number] Closed 12/23/2021 02/21/2022 1 1 Reason for Visit * MRI/CAT Scan - Closed Specialty Diagnoses / Procedures Referred By Marty hanson Referred To Contact Radiology Diagnoses Secondary malignant neoplasm of bone and bone marrow Procedures CT Chest Nadia Sharp MD Phone: tel: fax: mailto:[email or web address] Referral ID Status Reason Start Date Expiration Date Visits Re quested Visits Authorized [id number] Closed 12/23/2021 02/21/2022 1 1 Encounter Details Date Type Department Care Team (Late st Contact Info) Description 12/31/2021 1:30 PM EDT Hospital Encounter [facility], Radiology Department Nadia Sharp MD [address] [place] [id number] [email or web address] Social History Tobacco Use Types Packs/Day Years Used Date Smoking Tobacco: Never Smokeless Tobacco: Never Alcohol Use Standard Drinks/Week Comments Not Currently 0 (1 standard drink = 0.6 oz pur e alcohol) Education Answer Date Recorded Are you interested in more education? Not on oriana e 08/06/2022 Are you concerned about learning? Not on file 08/06/2022 No 08/06/2022 No 08/06/2022 Digital Access Answer Date Recorded No 09/04/2022 No 09/04/2022 No 09/04/2022 Reliable internet access at home? Not on file 09/04/2022 Device with a working camera? Not on file Sex and Gender Information Value Date Recorded Sex Assigned at Not on file Legal Sex Male 10:23 AM EDT Gender Identity Not on file Sexual Orientation Not on file documented as of this encounter Plan of Treatment Scheduled Orders Name Type Priority Associated Diagnoses Orde r Schedule CT Chest Imaging Routine Secondary malignant neoplasm of bone and bone marrow As Needed for 1 Occurrences starting 01/03/2022 until 01/03/2022 documented as of this encounter Visit Diagnoses Diagnosis Secondary malignant neoplasm of bone and bone marrow documented in this encounter Care Teams Test Fixture Assembler Relationship Specialty Start Date End Date Edis Nath MD [address] [place] [address] [place] [address] PCP - General Internal Medicine 10/13/20 Self-Referred, Patient 10/13/20 Cammie Breen MD [address] [place] [address] [email or web address] Medical Oncology 10/13/20 Gonzalo Sotomayor MD, MPH [address] [place] [address], [facility] [place] [address] GALINA@[email or web address] Radiation Oncology 10/26/20 Amilcar Fan MD [facility] [place] [address] Internal Medicine 11/19/20 Nadia Sharp MD [address] [place] [address] [email or web address] Radiation Oncology 12/07/21 Ashley Lilly MD [facility] [place] [address] [email or web address] Radiation Oncology 12/21/21 documented as of this encounter Additional Source Comments The information contained in this document represents components of the legal health record. It is not the complete legal health record.[facility]
[2025-02-17 15:16] LABS: Anion Gap 11 (12-20); Blood Urea Nitrogen 20 mg/dL (9-16); Calcium 8.9 mg/dL (8.4-10.2); Carbon Dioxide 26 mmol/L (22-29); Chloride 106 mmol/L (96-108); Estimated Glomerular Filt Rate 46; Potassium 4.5 mmol/L (3.3-5.1); Sodium 138 mmol/L (135-145)
--- OUTSIDE RECORDS SUMMARY | 2025-02-17 16:09 | XMS_ITS | Encounter Summary ---
Author Organization [facility] Address [address] [place] [address] Phone Care Team Providers Care Human Resources Compliance Manager Name Role Phone Edis Nath MD Primary Care Provider [phone] Self-Referred, Patient Unavailable Unavailab Cammie Anderson MD Unavailable [phone] Gonzalo Sotomayor MD, MPH Unavailable [phone] Amilcar Fan MD Unavailable [phone] Nadia Sharp MD Unavailable [phone] Ashley Lilly MD Unavailable Encounter Details Date Type Department Care Team (Late st Contact Info) Description 12/29/2021 Procedure Pass [facility], Radiology Department Social History Tobacco Use [...] on filedocumented in this encounter Care Teams Human Resources Compliance Manager Relationship Specialty Start Date End Date Edis Nath MD [address] [place] [address] [place] [address] PCP - General Internal Medicine 10/13/20 Self-Referred, Patient 10/13/20 Cammie Breen MD [address] [place] [address] [email or web address] Medical Oncology 10/13/20 Gonzalo Sotomayor MD, MPH [address] [place] [address], [facility]- [address] [place] [address] [email or web address] Radiation Oncology 10/26/20 Amilcar Fan MD [address] [place] [address] Internal Medicine 11/19/20 Nadia Sharp MD [address] [place] [address] BRIANNE@[email or web address] Radiation Oncology 12/07/21 Ashley Lilly MD [address] [place] [address] [email or web address] Radiation Oncology 12/21/21 documented as of this encounter Additional Source Comments The information contained in this document represents components of the legal health record. It is not the complete legal health record.[facility]
--- OUTSIDE RECORDS SUMMARY | 2025-02-17 16:10 | XMS_ITS | Clinical Summary ---
Author Organization [facility] Address [address] [place] [id number] Phone Care Team Providers Care Bariatric Surgeon Name Role Phone Edis Nath MD Primary Care Provider [phone] Self-Referred, Patient Unavailable Unavailab Cammie Anderson MD Unavailable [phone] Gonzalo Sotomayor MD, MPH Unavailable [phone] Amilcar Fan MD Unavailable Nadia Sharp MD Unavailable [phone] Ashley Lilly MD Unavailable Allergies No known [...] cM1b, PSA: 38.8, Grade Group: 4, 06/29/20, [place]: 4, +: 4) - Signed by Gonzalo [...] on patient's age to complete this topic IPV VACCINES Aged Out No longer eligi ble based on patient's age to complete this topic MENINGOCOCCAL VACCINES (ACWY) Aged Out No longer eligible based on patient's age to complete this topic MENINGOCOCCAL VACCINES (B) Aged Out N o longer eligible based on patient's age to complete this topic Medical Devices Not on file Insurance S S [facility] Care Teams Bariatric Surgeon Relationship Specialty Start Date End Date Edis Nath MD [address] [place] [address] [place] [id number] PCP - General Internal Medicine 10/13/20 Self-Referred, Patient 10/13/20 Cammie Breen MD [address] [place] [address] [email or web address] Medical Oncology 10/13/20 Gonzalo Sotomayor MD, MPH [address] [place] [id number] [email or web address] Radiation Oncology 10/26/20 Amilcar Fan MD [address] [place] [id number] Internal Medicine 11/19/20 Nadia Sharp MD [address] [place] [id number] [email or web address] Radiation Oncology 12/07/21 Ashley Lilly MD [address] [place] [address] [email or web address] Radiation Oncology 12/21/21 Additional Source Comments The information contained in this document represents components of the legal health record. It is not the complete legal health record.[facility]
== END 2025-02-17 13:53 | disposition home or self-care (01) ==
LOC: HO.LAB 13:52
PROVIDERS: PCP Internal Medicine; Visit Provider Internal Medicine
DX: N28.9 Disorder of kidney and ureter, unspecified (principal)
CPT/HCPCS: 36415; 80048